=== PATIENT | male | born 1995 | race Caucasian/White ===

== ENCOUNTER 2017-03-05 13:52 | Emergency (ER) | payer BC ==
[~2017-03-05] VITALS: Ht 167.6 cm; Wt 66.2 kg
[2017-03-05 14:03] VITALS: TEMP 36.5; Ht 167.6 cm; Wt 66.2 kg
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
--- NOTE | 2017-03-05 15:15 | DIAGNOSTIC IMAGING REPORT ---
CT FACIAL BONES-MXILLOFAC WITHOUT CT DOSE: 709.81 mGy.cm CLINICAL HISTORY: Facial pain status post trauma COMPARISON STUDY: No previous studies for comparison. TECHNIQUE: Helical images were acquired in the transverse plane. The study was reviewed and analyzed on the independent 3-D workstation. The pterygoid plates appear intact. There is a nondisplaced left-sided zygomatic arch fracture. There is a droplet of left-sided orbital emphysema. There is a nondisplaced fracture of the lateral wall of the left orbit. There are fractures involving the anterior and lateral bolaños of the left maxillary sinus. There is involvement of the anterior aspect of the left orbital floor. There is no muscular entrapment. There is a small left maxillary sinus air-fluid level. The mandibular condyles appear intact. IMPRESSION: 1. Acute nondisplaced fracture of the left zygomatic arch 2. Acute nondisplaced fracture involving the lateral wall of the left orbit 2. Acute mildly displaced fractures involving the anterior and lateral bolaños of the left maxillary sinus. Electronically signed by: Kam Rodriguez M.D. 03/05/2017 3:14 PM Dictated Date/Time: 03/05/2017 3:07 PM
[2017-03-05] MEDS ORDERED: OXYCODONE HCL IR 5 MG TAB (IMMEDIATE RELEASE) PO STA (15:40)
[2017-03-05] MEDS ORDERED: AMOX875T PO (15:46)
[2017-03-05] MEDS ORDERED: OXYC1TAB3 PO (15:46)
[2017-03-05 16:34] VITALS: BP 139/88; PULSE 70; O2SAT 100
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
== END 2017-03-05 16:49 | disposition home or self-care (01) ==
LOC: C.EDB 13:55 → C.EDD 16:49
DX: S02.92XA Unspecified fracture of facial bones, initial encounter for closed fracture (principal); S80.01XA Contusion of right knee, initial encounter; V19.3XXA Pedal cyclist (driver) (passenger) injured in unspecified nontraffic accident, initial encounter; Y93.55 Activity, bike riding; J45.909 Unspecified asthma, uncomplicated; Z98.890 Other specified postprocedural states; Z88.5 Allergy status to narcotic agent; Z88.6 Allergy status to analgesic agent

== ENCOUNTER 2022-11-09 17:07 | Inpatient (IN) ==
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
[2022-11-09 18:27] LABS: Appearance Urine Clear (Clear); Bilirubin Urine Negative (Negative); Blood Urine 3+ (Negative); Color Urine Yellow; Glucose Urine UA Negative (Negative); Ketones Urine Negative (Negative); Leukocyte Esterase Urine Negative (Negative); Nitrite Urine Negative (Negative); Protein Urine Trace (Negative); Specific Gravity Urine 1.006 (1.000-1.030); Urobilinogen Urine Negative (Negative); pH Urine 5.5 (4.5-7.5)
--- NOTE | 2022-11-09 18:31 | Emergency Department Note ---
Impression & Plan Edema of right upper extremity, Substance abuse, Rhabdomyolysis, Transaminitis, ANNIKA (acute kidney injury) ED Provider Note ED Provider Note NAME: LEXI ZARAGOZA AGE:27 SEX: Male : 1995 ARRIVES VIA: Private vehicle INFORMANT: Patient ED PROVIDER(s): Shira Gan DO CHIEF COMPLAINT: Right arm swelling, rash on stomach HPI: This is a 27-year-old male presents emergency department due to concern for right arm swelling and pain as well as a small rash on his stomach. Patient states over spring while on vacation he was using opiates which she has a history of. He states upon flying into the [place] airport he met some people which led to further drug use although this time he states he was using " speed". He states he woke up in an unknown hotel room, feeling confused and fatigued. He states those symptoms slowly improved and he was able to make his way back to [place]. He states he "passed out" at his apartment and when he woke up he realized his arm was swollen and achy and he had a new rash on his stomach. He states that was yesterday morning. He states his symptoms worsened into today and he came in for evaluation. He does not recall any trauma, burn, or injury to the abdomen where he has 2 small areas of redness that he states are painful and hypersensitive. No other new rash or sores. He does have a prior history of an abscess at an IVDA injection site. He denies fevers or chills, chest pain, trouble breathing. PAST MEDICAL HISTORY:See Below PAST SURGICAL HISTORY:See Below FAMILY HISTORY:See Below SOCIAL HISTORY:See Below HOME MEDICATIONS:See Below ALLERGIES:See Below VITALS:See Below PHYSICAL EXAMINATION: GENERAL: alert, well appearing, well nourished, no distress, non-toxic EYE EXAM: normal conjunctiva, PERRL and EOM's grossly intact OROPHARYNX: no exudate, no erythema, lips, buccal mucosa, and tongue normal and mucous membranes are moist NECK: supple, no nuchal rigidity, no adenopathy, non-tender LUNGS: Clear to auscultation. Normal chest wall mechanics, no w/r/r HEART: no murmurs, S1 normal and S2 normal ABDOMEN: abdomen soft, non-tender, normo-active bowel sounds, no masses, no rebound or guarding. 2 areas of erythema approximately 4 x 4 cm to mid anterior abdominal wall, no skin sloughing, no bullae, no petechiae, no drainage BACK: Back is symmetrical on inspection and there is no deformity, no midline tenderness, no CVA tenderness. SKIN: no rashes, petechiae, orbruising UPPER EXTREMITIES: left upper extremity are grossly normal. FROM, nml pulses b/l. Fresh injection sites noted near the AC. Right upper extremity with marked edema from the shoulder extending down to the mid forearm, no bony tenderness with palpation, discomfort noted posterior to the proximal right upper extremity in the area of his triceps, no palpable mass, no crepitus, no overlying erythema or rash, patient has full range of motion of the right upper extremity but states it is painful performing range of motion testing at the right shoulder, he denies distal paresthesias, radial pulse intact, normal sensation of the right hand, there is a well-healed scar noted along the right lateral elbow from prior surgery for an abscess LOWER EXTREMITIES: No pitting edema. FROM, nml pulses b/l. NEURO EXAM: Normal sensorium, cranial nerves II-XII grossly intact, normal speech, no facial droop,nogross weakness of arms, no gross weakness of legs. Gross sensation intact. No ataxia. Vital Signs: reviewed and remarkable Differential Diagnosis: abscess, septic athritis, DVT, dehydration, contusion, electrolyte abnormality as well as others were considered MEDICAL DECISION MAKING: THis is a 27 yo male who presents due to concern for RUE pain and swelling. Patient admits to hx of IVDA and recent use over the weekend with 2 episodes of "passing out" for an unknown about of time. Patient was afebrile and VS stable on arrival. Orders started while in triage. Labs drawn however took several attempts due to difficult IV access from hx of IVDA and IVF started. Right shoulder xrays performed at bedside and interpreted by me and pt placed on tele. Due to concern for infection, zosyn and vancomycin ordered. Cultures, procal, and lactic acid added after labs revealed leukocytosis. Patient started on IVF and sent for US. While in US, additional labs resulted showing ANNIKA and eventually rhabdomyolysis. US negative. I suspect pt "passed out" on his right arm due to drug use leading to rhabdo which led to ANNIKA and likely transaminitis additionally. Patient made aware of all results and need for additional inpatient treatment. I feel occult septic arthritis, or nec fasc less likey at this time. Consultation(s): 1618: Discussed with Dr. Andres. ER Treatment Provided: See below Diagnostics Interpreted By Me: -ECG: [] -Cardiac Monitoring: An order was placed for continuous cardiac monitoring. The monitor shows a rate of 86 with normal sinus rhythm. -Laboratory studies: As stated above and show below. -Imaging studies: right shoulder xray 3 views: no obvious fx, dislocation, or FB Triage Nursing Note Reviewed Prior/Outside Records Reviewed Procedures: [] Critical Care: [] Past Med/Surg History Social History Smoking Status: Current some day smoker Tobacco Type: E-cigarettes / Vaping Second Hand Exposure: No; Do You Dip or Chew Tobacco: No; Hx Alcohol Use: Yes Alcohol type: beer and hard liquor Hx Substance Use: Yes Last Used Substance: Days (ago) Last Used Substance Other:: 11/07/22 Communication Ability: Effective Current Living Situation: Alone Other Information That Helps Us Care for You: No Feels Safe at Home: Yes Assistive Devices: None Allergies Allergies Allergy/AdvReac Type Severity Reaction Status Date / Time hydrocodone Allergy Intermediate rash Verified 11/09/22 20:04 acetaminophen Allergy Unknown PER Verified 11/09/22 20:04 PT--DOESN'T TAKE D/T SIDE EFFECT LIVER CAUSING ISSUE oxycodone Allergy Unknown heat Verified 11/09/22 20:04 flashes Home Meds Home Medications Medication Instructions Recorded Confirmed Medical Marijuana 1 dose inhalation DIRECTED PRN 11/09/22 11/09/22 NEEDED PER PT. alprazolam 0.25 mg tablet 0.25 mg PO HS PRN Sleep 11/09/22 11/09/22 clonazepam 1 mg tablet 1 mg PO BID PRN Anxiety 11/09/22 11/09/22 dextroamphetamine-amphetamine 20 20 mg PO TID 11/09/22 11/09/22 mg tablet Results & Data (ED) Vital Signs Vital Signs - 24 hr 11/09/22 17:13 11/09/22 19:22 11/09/22 22:00 Temperature 36.8 C Temperature Source Temporal Artery Scan Pulse Rate 96 H 86 83 Pulse Rate from SpO2 Sensor 77 Pulse Rhythm Regular Respiratory Rate 16 14 20 Respiratory Effort / Characteristics Non-Labored Spontaneous Respiratory Depth Normal Blood Pressure 141/93 H 159/108 H 150/92 H Blood Pressure Mean 109 125 111 Pulse Oximetry 100 100 100 Oxygen Delivery Method Room Air Room Air Room Air Sepsis Recent Fever Within 48 Hours No Sepsis New/Unexplained Change in Mental Status No Sepsis Action Taken by Nursing No Action Required Laboratory Data 11/09/22 18:32 11/09/22 18:32 Lab Results 11/09/22 11/09/22 11/09/22 Range/Units 18:10 18:10 18:32 WBC 15.24 H (4.8-10.8) K/ul RBC 5.77 (4.70-6.10) M/uL Hgb 17.5 (14.0-18.0) g/dl Hct 49.4 (42.0-52.0) % MCV 85.6 (80.0-100.0) fL MCH 30.3 (25.0-34.0) pg MCHC 35.4 (32.0-36.0) g/dL RDW Std Deviation 38.5 (36.4-46.3) fL RDW Coeff of Raúl 12.4 (11.5-14.5) % Plt Count 192 (130-400) K/uL MPV 10.3 (9.4-12.4) fL Immature Gran % (Auto) 0.5 % Neut % (Auto) 86.2 % Lymph % (Auto) 7.5 % [place] % (Auto) 4.9 % Eos % (Auto) 0.6 % Baso % (Auto) 0.3 % Neut # (Auto) 13.15 H (1.40-6.50) K/uL Lymph # (Auto) 1.15 L (1.2-3.4) K/uL [place] # (Auto) 0.74 H (0.11-0.59) K/uL Eos # (Auto) 0.09 (0-0.50) K/uL Baso # (Auto) 0.04 (0-0.2) K/uL Immature Gran # (Auto) 0.07 (0.01-0.20) K/uL Sodium (136-145) mmol/L Potassium (3.5-5.1) mmol/L Chloride (98-107) mmol/L Carbon Dioxide (21-32) mmol/L Anion Gap (3-11) BUN (6-23) mg/dl Creatinine (0.6-1.4) mg/dl Est Cr Clr Drug Dosing Est GFR ( Amer) ml/min Est GFR (Non-Af Amer) ml/min BUN/Creatinine Ratio (10-20) Glucose (70-99(Fasting)) mg/dl Lactate (0.4-2.0) mmol/L Calcium (8.5-10.1) mg/dl Magnesium (1.7-2.4) mg/dl Total Bilirubin (0.2-1.0) mg/dl AST (13-39) U/L ALT (7-52) U/L Alkaline Phosphatase (34-104) U/L Total Creatine Kinase (30-223) U/L Total Protein (6.0-8.3) gm/dl Albumin (3.4-5.0) gm/dl Globulin (2.5-4.0) gm/dl Albumin/Globulin Ratio (0.9-2) Procalcitonin (0-0.5) ng/ml Urine Color Yellow Urine Appearance Clear (Clear) Urine pH 5.5 (4.5-7.5) Ur Specific [place] 1.006 (1.000-1.030) Urine Protein Trace H (Negative) Urine Glucose (UA) Negative (Negative) Urine Ketones Negative (Negative) Urine Blood 3+ H (Negative) Urine Nitrite Negative (Negative) Urine Bilirubin Negative (Negative) Urine Urobilinogen Negative (Negative) Ur Leukocyte Esterase Negative (Negative) Urine WBC (Auto) 5-10 H (0-5) /hpf Urine RBC (Auto) 0-4 (0-4) /hpf U Hyaline Cast (Auto) 1-5 (0-5) /lpf U Epithel Cells (Auto) 5-10 H (0-5) /lpf Urine Bacteria (Auto) 1+ H (Negative) Urine Yeast Not Reportable Urine Opiates Screen Neg (Neg) Ur Methadone, Qual Neg (Neg) Urine Barbiturates Neg (Neg) Ur Phencyclidine (PCP) Neg (Neg) U Amphetamin/Meth Scrn Pos H (Neg) MDMA (Ecstasy) Screen Neg (Neg) U Benzodiazepines Scrn Neg (Neg) Ur Cocaine Metabolite Neg (Neg) U Marijuana (THC) Screen Pos H (Neg) SARS-CoV-2 (PCR) (Negative) Influenza Type A (PCR) (Neg) Influenza Type B (PCR) (Neg) RSV (RT-PCR) (Neg) 11/09/22 11/09/22 11/09/22 Range/Units 18:32 18:32 18:32 WBC (4.8-10.8) K/ul RBC (4.70-6.10) M/uL Hgb (14.0-18.0) g/dl Hct (42.0-52.0) % MCV (80.0-100.0) fL MCH (25.0-34.0) pg MCHC (32.0-36.0) g/dL RDW Std Deviation (36.4-46.3) fL RDW Coeff of Raúl (11.5-14.5) % Plt Count (130-400) K/uL MPV (9.4-12.4) fL Immature Gran % (Auto) % Neut % (Auto) % Lymph % (Auto) % [place] % (Auto) % Eos % (Auto) % Baso % (Auto) % Neut # (Auto) (1.40-6.50) K/uL Lymph # (Auto) (1.2-3.4) K/uL [place] # (Auto) (0.11-0.59) K/uL Eos # (Auto) (0-0.50) K/uL Baso # (Auto) (0-0.2) K/uL Immature Gran # (Auto) (0.01-0.20) K/uL Sodium 128 L (136-145) mmol/L Potassium 3.6 (3.5-5.1) mmol/L Chloride 93 L (98-107) mmol/L Carbon Dioxide 26 (21-32) mmol/L Anion Gap 9 (3-11) BUN 51 H (6-23) mg/dl Creatinine 3.28 H (0.6-1.4) mg/dl Est Cr Clr Drug Dosing Not Reportable Est GFR ( Amer) 28.3 ml/min Est GFR (Non-Af Amer) 24.4 ml/min BUN/Creatinine Ratio 15.5 (10-20) Glucose 100 H (70-99(Fasting)) mg/dl Lactate 1.2 (0.4-2.0) mmol/L Calcium 8.5 (8.5-10.1) mg/dl Magnesium 2.5 H (1.7-2.4) mg/dl Total Bilirubin 1.1 H (0.2-1.0) mg/dl AST 2043 H (13-39) U/L ALT 1268 H (7-52) U/L Alkaline Phosphatase 61 (34-104) U/L Total Creatine Kinase 73463 H (30-223) U/L Total Protein 7.5 (6.0-8.3) gm/dl Albumin 4.3 (3.4-5.0) gm/dl Globulin 3.2 (2.5-4.0) gm/dl Albumin/Globulin Ratio 1.3 (0.9-2) Procalcitonin 4.09 H (0-0.5) ng/ml Urine Color Urine Appearance (Clear) Urine pH (4.5-7.5) Ur Specific [place] (1.000-1.030) Urine Protein (Negative) Urine Glucose (UA) (Negative) Urine Ketones (Negative) Urine Blood (Negative) Urine Nitrite (Negative) Urine Bilirubin (Negative) Urine Urobilinogen (Negative) Ur Leukocyte Esterase (Negative) Urine WBC (Auto) (0-5) /hpf Urine RBC (Auto) (0-4) /hpf U Hyaline Cast (Auto) (0-5) /lpf U Epithel Cells (Auto) (0-5) /lpf Urine Bacteria (Auto) (Negative) Urine Yeast Urine Opiates Screen (Neg) Ur Methadone, Qual (Neg) Urine Barbiturates (Neg) Ur Phencyclidine (PCP) (Neg) U Amphetamin/Meth Scrn (Neg) MDMA (Ecstasy) Screen (Neg) U Benzodiazepines Scrn (Neg) Ur Cocaine Metabolite (Neg) U Marijuana (THC) Screen (Neg) SARS-CoV-2 (PCR) (Negative) Influenza Type A (PCR) (Neg) Influenza Type B (PCR) (Neg) RSV (RT-PCR) (Neg) 11/09/22 Range/Units 21:45 WBC (4.8-10.8) K/ul RBC (4.70-6.10) M/uL Hgb (14.0-18.0) g/dl Hct (42.0-52.0) % MCV (80.0-100.0) fL MCH (25.0-34.0) pg MCHC (32.0-36.0) g/dL RDW Std Deviation (36.4-46.3) fL RDW Coeff of Raúl (11.5-14.5) % Plt Count (130-400) K/uL MPV (9.4-12.4) fL Immature Gran % (Auto) % Neut % (Auto) % Lymph % (Auto) % [place] % (Auto) % Eos % (Auto) % Baso % (Auto) % Neut # (Auto) (1.40-6.50) K/uL Lymph # (Auto) (1.2-3.4) K/uL [place] # (Auto) (0.11-0.59) K/uL Eos # (Auto) (0-0.50) K/uL Baso # (Auto) (0-0.2) K/uL Immature Gran # (Auto) (0.01-0.20) K/uL Sodium (136-145) mmol/L Potassium (3.5-5.1) mmol/L Chloride (98-107) mmol/L Carbon Dioxide (21-32) mmol/L Anion Gap (3-11) BUN (6-23) mg/dl Creatinine (0.6-1.4) mg/dl Est Cr Clr Drug Dosing Est GFR ( Amer) ml/min Est GFR (Non-Af Amer) ml/min BUN/Creatinine Ratio (10-20) Glucose (70-99(Fasting)) mg/dl Lactate (0.4-2.0) mmol/L Calcium (8.5-10.1) mg/dl Magnesium (1.7-2.4) mg/dl Total Bilirubin (0.2-1.0) mg/dl AST (13-39) U/L ALT (7-52) U/L Alkaline Phosphatase (34-104) U/L Total Creatine Kinase (30-223) U/L Total Protein (6.0-8.3) gm/dl Albumin (3.4-5.0) gm/dl Globulin (2.5-4.0) gm/dl Albumin/Globulin Ratio (0.9-2) Procalcitonin (0-0.5) ng/ml Urine Color Urine Appearance (Clear) Urine pH (4.5-7.5) Ur Specific [place] (1.000-1.030) Urine Protein (Negative) Urine Glucose (UA) (Negative) Urine Ketones (Negative) Urine Blood (Negative) Urine Nitrite (Negative) Urine Bilirubin (Negative) Urine Urobilinogen (Negative) Ur Leukocyte Esterase (Negative) Urine WBC (Auto) (0-5) /hpf Urine RBC (Auto) (0-4) /hpf U Hyaline Cast (Auto) (0-5) /lpf U Epithel Cells (Auto) (0-5) /lpf Urine Bacteria (Auto) (Negative) Urine Yeast Urine Opiates Screen (Neg) Ur Methadone, Qual (Neg) Urine Barbiturates (Neg) Ur Phencyclidine (PCP) (Neg) U Amphetamin/Meth Scrn (Neg) MDMA (Ecstasy) Screen (Neg) U Benzodiazepines Scrn (Neg) Ur Cocaine Metabolite (Neg) U Marijuana (THC) Screen (Neg) SARS-CoV-2 (PCR) NEGATIVE (Negative) Influenza Type A (PCR) Negative (Neg) Influenza Type B (PCR) Negative (Neg) RSV (RT-PCR) Negative (Neg) Administered Medications Daptomycin 250 mg/ Syringe 5 mls @ 2.5 mls/min IV Q24H [facility]; Protocol Stop: 11/17/22 04:59 Last Admin: 11/10/22 05:45 Dose: 2.5 mls/min Documented By: ELIZABETH Piperacillin Sod/Tazobactam (Sod 3.375 gm/ Dextrose) 115 mls @ 28.75 mls/hr IV Q8H [facility]; Protocol Stop: 11/17/22 05:59 Last Admin: 11/10/22 13:57 Dose: 28.8 mls/hr Documented By: Infusion: 11/10/22 09:47 Dose: 0 mls/hr Documented By: Admin: 11/10/22 05:45 Dose: 28.8 mls/hr Documented By: ELIZABETH Parenteral Electrolytes (Normosol-R) 1,000 mls @ 200 mls/hr IV .Q5H [facility] Stop: 12/10/22 10:29 Last Infusion: 11/10/22 12:04 Dose: 200 mls/hr Documented By: Infusion: 11/10/22 11:16 Dose: 0 mls/hr Documented By: Admin: 11/10/22 10:37 Dose: 200 mls/hr Documented By: THEODORE Morphine Sulfate (Morphine Sulfate 2 Mg/Ml Carp) 1 mg IV Q4 PRN PRN Reason: Severe Pain (Scale 7, 8, 9,10) Stop: 11/24/22 13:39 Last Admin: 11/10/22 14:09 Dose: 1 mg Documented By: THEODORE Nicotine (Nicotine 21 Mg/24 Hr Tdsy) 21 mg TD QAM [facility] Stop: 12/10/22 13:44 Last Admin: 11/10/22 13:57 Dose: 21 mg Documented By: THEODORE Triamcinolone Acetonide (Triamcinolone Acet 0.1% Orabase 5 Gm Tube) 1 appln MT UD [facility] Stop: 12/09/22 22:44 Last Admin: 11/10/22 10:13 Dose: 1 appln Documented By: THEODORE Discontinued Medications Piperacillin Sod/Tazobactam Sod (Zosyn) 4.5 gm in 120 mls @ 240 mls/hr IV NOW ONE Stop: 11/09/22 19:42 Last Infusion: 11/09/22 20:38 Dose: 0 mls/hr Documented By: Admin: 11/09/22 20:08 Dose: 240 mls/hr Documented By: SHELLEY Sodium Chloride (Nss 1000ml) 1,000 mls @ 125 mls/hr IV .Q8H [facility] Stop: 12/09/22 19:44 Last Infusion: 11/10/22 01:33 Dose: 0 mls/hr Documented By: Admin: 11/09/22 22:17 Dose: 125 mls/hr Documented By: SHELLEY Vancomycin HCl 1,250 mg/ (Sodium Chloride) 525 mls @ 200 mls/hr IV NOW ONE Stop: 11/09/22 22:11 Last Admin: 11/09/22 20:48 Dose: 200 mls/hr Documented By: SHELLEY Sodium Chloride (Nss 1000ml) 1,000 mls @ 200 mls/hr IV .Q5H [facility] Stop: 12/10/22 01:28 Last Infusion: 11/10/22 10:32 Dose: 0 mls/hr Documented By: Admin: 11/10/22 05:56 Dose: 200 mls/hr Documented By: Infusion: 11/10/22 05:56 Dose: 0 mls/hr Documented By: Admin: 11/10/22 01:34 Dose: 200 mls/hr Documented By: ELIZABETH Potassium Chloride (Potassium Chloride Crtab 20 Meq Tabcr) 40 meq PO NOW STA Stop: 11/10/22 13:08 Last Admin: 11/10/22 13:57 Dose: 40 meq Documented By: THEODORE Imaging Data Radiologist's Impression: Shoulder X-Ray 11/09/22 17:20 XR shoulder RT min 2V routine CLINICAL HISTORY: Right shoulder pain. COMPARISON STUDY: None. FINDINGS: Soft tissue swelling within the right shoulder. No acute fracture or dislocation. The right clavicle is intact. IMPRESSION: Soft tissue swelling within the right shoulder. No fracture or dislocation. ACT 112: Negative or not required by law. Electronically signed by: Richard Duvall M.D. 11/09/2022 6:29 PM Discharge Plan Visit Data Chief Complaint: Swelling/Edema to Extremity Stated Complaint: REF BY DOC,R ARM SWELLING ,ABDOMINAL PAIN ED Provider: Shira Gan Discharge Problem: Edema of right upper extremity, Substance abuse, Rhabdomyolysis, Transaminitis, ANNIKA (acute kidney injury) Patient Disposition: Admitted As Inpatient Discharge Instructions Interventions: ED Discharge Assessment Last Done: 11/10/22 01:11
[2022-11-09 18:45] LABS: Bacteria Urine Automated 1+ (Negative); RBC Urine Automated 0-4 /hpf (0-4)
[2022-11-09 19:00] LABS: Basophils # (auto) 0.04 K/uL (0-0.2); Basophils % (auto) 0.3 %; Eosinophils # (auto) 0.09 K/uL (0-0.50); Eosinophils % (auto) 0.6 %; Hematocrit (blood only) 49.4 % (42.0-52.0); Hemoglobin 17.5 g/dl (14.0-18.0); Immature Granulocytes # (auto) 0.07 K/uL (0.01-0.20); Immature Granulocytes % (auto) 0.5 %; Lymphocytes # (auto) 1.15 K/uL (1.2-3.4); Lymphocytes % (auto) 7.5 %; Mean Corpuscular Hemoglobin 30.3 pg (25.0-34.0); Mean Corpuscular Hgb Conc 35.4 g/dL (32.0-36.0); Mean Corpuscular Volume 85.6 fL (80.0-100.0); Mean Platelet Volume 10.3 fL (9.4-12.4); Monocytes # (auto) 0.74 K/uL (0.11-0.59); Monocytes % (auto) 4.9 %; Neutrophils # (auto) 13.15 K/uL (1.40-6.50); Neutrophils % (auto) 86.2 %; Platelet Count 192 K/uL (130-400); RDW Coefficient of Variation 12.4 % (11.5-14.5); RDW Standard Deviation 38.5 fL (36.4-46.3); Red Blood Count 5.77 M/uL (4.70-6.10); White Blood Count 15.24 K/ul (4.8-10.8)
[2022-11-09 19:03] LABS: Amphetamines+Metham, Urine Pos (Neg); Barbiturates, Urine Neg (Neg); Benzodiazepine, Urine Neg (Neg); Cocaine, Urine Neg (Neg); MDMA (Ecstacy), Urine Neg (Neg); Methadone, Urine Neg (Neg); Opiate, Urine Neg (Neg); Phencyclidine, Urine Neg (Neg)
[2022-11-09] MEDS ORDERED: PIPERACILLIN/TAZOBACTAM 4.5 GM/120 ML BAG IV ONE (19:13)
[2022-11-09 19:18] LABS: Anion Gap 9 (3-11); BUN Creatinine Ratio 15.5 (10-20); Blood Urea Nitrogen 51 mg/dl (6-23); Calcium 8.5 mg/dl (8.5-10.1); Carbon Dioxide 26 mmol/L (21-32); Chloride 93 mmol/L (98-107); Est GFR (African American) 28.3 ml/min; Est GFR (Non-African American) 24.4 ml/min; Glucose 100 mg/dl (70-99(Fasting)); Potassium 3.6 mmol/L (3.5-5.1); Sodium 128 mmol/L (136-145)
[2022-11-09] MEDS ORDERED: VANCOMYCIN CONSULT ACTIVE PRN (19:34)
[2022-11-09] MEDS ORDERED: VANCOMYCIN HCL 1,250 MG in SODIUM CHLORIDE 0.9% 500 ML IV ONE (19:34)
[2022-11-09] MEDS ORDERED: SODIUM CHLORIDE 0.9% 1000ML 1,000 ML IV SCH (19:45)
[2022-11-09 20:01] LABS: Alanine Aminotransferase 1268 U/L (7-52); Albumin Globulin Ratio 1.3 (0.9-2); Albumin Level 4.3 gm/dl (3.4-5.0); Alkaline Phosphatase 61 U/L (34-104); Aspartate Aminotransferase 2043 U/L (13-39); Bilirubin,Total 1.1 mg/dl (0.2-1.0); Globulin 3.2 gm/dl (2.5-4.0); Magnesium 2.5 mg/dl (1.7-2.4); Total Protein 7.5 gm/dl (6.0-8.3)
[2022-11-09 21:08] LABS: Creatine Kinase 79100 U/L (30-223)
--- NOTE | 2022-11-09 21:51 | Ultrasound Report ---
Exam(s): US VENOUS RIGHT UPPER EXTREMITY EXAM: US Duplex Right Upper Extremity Veins CLINICAL HISTORY: Reason for exam: R arm pain and edema. TECHNIQUE: Real-time duplex ultrasound scan of the right upper extremity veins integrating B-mode two-dimensional vascular structure, Doppler spectral analysis, color flow Doppler imaging and compression. COMPARISON: None FINDINGS: Deep veins: Unremarkable. No DVT in the internal jugular, subclavian, axillary, or brachial veins. The veins demonstrate normal color flow, are normally compressible, with normal phasic flow and/or augmentation response. Superficial veins: Unremarkable. No thrombus in the visualized basilic and cephalic veins. Soft tissues: Edema in the subcutaneous soft tissues. There also appears to be muscular edema in the shoulder. IMPRESSION: No venous thrombosis in the right upper extremity. Soft tissue and muscular edema. Electronically signed by: Lilliam Arellano M.D. 11/09/22 21:50 PM
[2022-11-09] MEDS ORDERED: TRIAMCINOLONE ACET 0.1% ORABASE 5 GM TUBE MT SCH (22:45)
--- NOTE | 2022-11-09 22:49 | History & Physical Report ---
Date of Service November 09, 2022 Assessment & Plan (1) Substance abuse: (2) Rhabdomyolysis: (3) Acute renal failure: (4) Transaminitis: (5) Edema of right upper extremity: Plan Acute renal failure/rhabdomyolysis- Creatinine 3.28, CK 79,100 NSS at 200 mils per hour Follow serial renal profile and CK Hold off on any imaging at this time Consult nephrology Right upper extremity swelling- Venous Doppler negative for DVT X-ray shows no bony abnormality but does show fluid in the soft tissue Injection mendiola noted near the AC Procalcitonin elevated Placed on daptomycin IV and Zosyn IV If persistent symptoms consult orthopedic surgery Transaminitis- Secondary to rhabdomyolysis AST 2043, ALT 1268 INR added on is 1.1 Follow serial laboratories Oral ulcers- Along tongue and lips and buccal mucosa Placed on Kenalog Orabase Hold alprazolam, clonazepam, dextroamphetamine/amphetamine, and medical marijuana Urine drug screen is positive for amphetamine and marijuana Unknown what other substances patient may have used, as he has amnesia for part of the time He was advised to stop the substance abuse History of Present Illness Chief Complaint: The patient presents to the emergency department for assessment of right arm and shoulder swelling, and reports that over the past 2 days he feels like he has been hit by a train, with every part of his body being sore and aching Primary Care Provider: NO PCP The patient is a 27-year-old male with past medical history significant for anxiety, ADD, and a skin abscess from from a previous IVDA injection site. He presents to the emergency department with complaint of right shoulder and upper arm swelling, and generalized myalgias as noted above. He also reports that [place] on spring he was using opiates, and then later was using speed. While in [place], he reports that he woke up in an unknown hotel room feeling confused and extremely fatigued and achy. He was ultimately able to make his way back to [place] yesterday. After realizing that his right arm was swollen, and he had a new rash on his stomach, he decided coming to the emergency department for assessment. Allergies Allergy/AdvReac Type Severity Reaction Status Date / Time hydrocodone Allergy Intermediate rash Verified 11/09/22 20:04 acetaminophen Allergy Unknown PER Verified 11/09/22 20:04 PT--DOESN'T TAKE D/T SIDE EFFECT LIVER CAUSING ISSUE oxycodone Allergy Unknown heat Verified 11/09/22 20:04 flashes Home Medications Medication Instructions Recorded Confirmed Type Medical Marijuana 1 dose inhalation DIRECTED PRN 11/09/22 11/09/22 History NEEDED PER PT. alprazolam 0.25 mg tablet 0.25 mg PO HS PRN Sleep 11/09/22 11/09/22 History clonazepam 1 mg tablet 1 mg PO BID PRN Anxiety 11/09/22 11/09/22 History dextroamphetamine-amphetamine 20 20 mg PO TID 11/09/22 11/09/22 History mg tablet Past Med/Surg History Social History (Updated 11/09/22 @ 18:30 by Shira Gan, ) Smoking Status: Current some day smoker Tobacco Type: E-cigarettes / Vaping Second Hand Exposure: No; Do You Dip or Chew Tobacco: No; Hx Alcohol Use: Yes Alcohol type: beer and hard liquor Hx Substance Use: Yes Last Used Substance: Days (ago) Last Used Substance Other:: 11/07/22 Current Living Situation: Alone Other Information That Helps Us Care for You: No Feels Safe at Home: Yes Review of Systems Review of Systems: The patient denies chest pain, palpitations, shortness of breath, dyspnea on exertion, cough, lower extremity swelling, sore throat, fevers, chills, sweats, nausea, vomiting, diarrhea , constipation, abdominal pain, pelvic pain, blood in urine or stool, dysuria, urinary frequency or urgency, lightheadedness, dizziness, headache, abnormal bruising or bleeding, imbalance, focal weakness, back or neck pain, or night sweats. The review of systems is otherwise negative other than for that already noted above, and at least 10 systems have been reviewed. Physical Exam Physical Exam: The patient is awake, alert and oriented 3, well developed and well nourished, normocephalic and atraumatic, lying in bed and in no acute distress. HEENT--PERRL, EOMI, multiple areas of ulcerations along right side of tongue, and along lips and buccal mucosa Neck--supple. No JVD. No bruits. Thyroid normal, trachea midline, no adenopathy. Heart--normal S1 and S2. No murmurs, rubs or gallops. Lungs--clear bilaterally, no respiratory distress, no accessory muscle use. Abdomen--normal bowel sounds and soft. Nontender. Nondistended, no hernias or masses, no organomegaly. Extremities--no cyanosis or clubbing. No edema. There are good distal pulses b/l. Dermatologic--fresh injection site is noted near the right AC Neurologic--cranial nerves II through XII grossly intact. Rheumatologic--painfully decreased range of motion with swelling noted from right shoulder down to mid forearm Psychiatric--normal affect. Results & Data Results & Data ([facility]) Vital Signs (Past 12 Hours) Vital Signs Temp Pulse Resp BP Pulse Ox O2 Del Method 11/09/22 22:00 83 20 150/92 H 100 Room Air 11/09/22 19:22 86 14 159/108 H 100 Room Air 11/09/22 17:13 36.8 C 96 H 16 141/93 H 100 Room Air Laboratory Results Laboratory Results WBC 15.24 K/ul (4.8-10.8) H 11/09/22 18: RBC 5.77 M/uL (4.70-6.10) 11/09/22 18: Hgb 17.5 g/dl (14.0-18.0) 11/09/22 18: Hct 49.4 % (42.0-52.0) 11/09/22 18: MCV 85.6 fL (80.0-100.0) 11/09/22 18: MCH 30.3 pg (25.0-34.0) 11/09/22 18: MCHC 35.4 g/dL (32.0-36.0) 11/09/22 18: RDW Std Deviation 38.5 fL (36.4-46.3) 11/09/22 18: RDW Coeff of Raúl 12.4 % (11.5-14.5) 11/09/22 18: Plt Count 192 K/uL (130-400) 11/09/22 18: MPV 10.3 fL (9.4-12.4) 11/09/22 18: Immature Gran % (Auto) 0.5 % 11/09/22 18: Neut % (Auto) 86.2 % 11/09/22 18: Lymph % (Auto) 7.5 % 11/09/22 18:32 [place] % (Auto) 4.9 % 11/09/22 18:32 Eos % (Auto) 0.6 % 11/09/22 18:32 Baso % (Auto) 0.3 % 11/09/22 18:32 Neut # (Auto) 13.15 K/uL (1.40-6.50) H 11/09/22 18:32 Lymph # (Auto) 1.15 K/uL (1.2-3.4) L 11/09/22 18:32 [place] # (Auto) 0.74 K/uL (0.11-0.59) H 11/09/22 18:32 Eos # (Auto) 0.09 K/uL (0-0.50) 11/09/22 18:32 Baso # (Auto) 0.04 K/uL (0-0.2) 11/09/22 18:32 Immature Gran # (Auto) 0.07 K/uL (0.01-0.20) 11/09/22 18:32 PT 11.5 Seconds (9.0-12.0) 11/10/22 00:52 INR 1.1 (0.9-1.1) 11/10/22 00:52 APTT 21.4 Seconds (21.0-31.0) 11/10/22 00:52 PTT Ratio 0.8 11/10/22 00:52 Sodium 128 mmol/L (136-145) L 11/09/22 18:32 Potassium 3.6 mmol/L (3.5-5.1) 11/09/22 18:32 Chloride 93 mmol/L (98-107) L 11/09/22 18:32 Carbon Dioxide 26 mmol/L (21-32) 11/09/22 18:32 Anion Gap 9 (3-11) 11/09/22 18:32 BUN 51 mg/dl (6-23) H 11/09/22 18:32 Creatinine 3.28 mg/dl (0.6-1.4) H 11/09/22 18:32 Est Cr Clr Drug Dosing Not Reportable 11/09/22 18:32 Est GFR ( Amer) 28.3 ml/min 11/09/22 18:32 Est GFR (Non-Af Amer) 24.4 ml/min 11/09/22 18:32 BUN/Creatinine Ratio 15.5 (10-20) 11/09/22 18:32 Glucose 100 mg/dl (70-99(Fasting)) H 11/09/22 18:32 Lactate 1.2 mmol/L (0.4-2.0) 11/09/22 18:32 Calcium 8.5 mg/dl (8.5-10.1) 11/09/22 18:32 Magnesium 2.5 mg/dl (1.7-2.4) H 11/09/22 18:32 Total Bilirubin 1.1 mg/dl (0.2-1.0) H 11/09/22 18:32 AST 2043 U/L (13-39) H 11/09/22 18:32 ALT 1268 U/L (7-52) H 11/09/22 18:32 Alkaline Phosphatase 61 U/L (34-104) 11/09/22 18:32 Total Creatine Kinase 86452 U/L (30-223) H 11/09/22 18:32 Total Protein 7.5 gm/dl (6.0-8.3) 11/09/22 18:32 Albumin 4.3 gm/dl (3.4-5.0) 11/09/22 18: Globulin 3.2 gm/dl (2.5-4.0) 11/09/22 18:32 Albumin/Globulin Ratio 1.3 (0.9-2) 11/09/22 18:32 Procalcitonin 4.09 ng/ml (0-0.5) H 11/09/22 18:32 Urine Color Yellow 11/09/22 18:10 Urine Appearance Clear (Clear) 11/09/22 18:10 Urine pH 5.5 (4.5-7.5) 11/09/22 18:10 Ur Specific [place] 1.006 (1.000-1.030) 11/09/22 18:10 Urine Protein Trace (Negative) H 11/09/22 18:10 Urine Glucose (UA) Negative (Negative) 11/09/22 18:10 Urine Ketones Negative (Negative) 11/09/22 18:10 Urine Blood 3+ (Negative) H 11/09/22 18:10 Urine Nitrite Negative (Negative) 11/09/22 18:10 Urine Bilirubin Negative (Negative) 11/09/22 18:10 Urine Urobilinogen Negative (Negative) 11/09/22 18:10 Ur Leukocyte Esterase Negative (Negative) 11/09/22 18:10 Urine WBC (Auto) 5-10 /hpf (0-5) H 11/09/22 18:10 Urine RBC (Auto) 0-4 /hpf (0-4) 11/09/22 18:10 U Hyaline Cast (Auto) 1-5 /lpf (0-5) 11/09/22 18:10 U Epithel Cells (Auto) 5-10 /lpf (0-5) H 11/09/22 18:10 Urine Bacteria (Auto) 1+ (Negative) H 11/09/22 18:10 Urine Yeast Not Reportable 11/09/22 18:10 Urine Opiates Screen Neg (Neg) 11/09/22 18:10 Ur Methadone, Qual Neg (Neg) 11/09/22 18:10 Urine Barbiturates Neg (Neg) 11/09/22 18:10 Ur Phencyclidine (PCP) Neg (Neg) 11/09/22 18:10 U Amphetamin/Meth Scrn Pos (Neg) H 11/09/22 18:10 MDMA (Ecstasy) Screen Neg (Neg) 11/09/22 18:10 U Benzodiazepines Scrn Neg (Neg) 11/09/22 18:10 Ur Cocaine Metabolite Neg (Neg) 11/09/22 18:10 U Marijuana (THC) Screen Pos (Neg) H 11/09/22 18:10 SARS-CoV-2 (PCR) NEGATIVE (Negative) 11/09/22 21:45 Influenza Type A (PCR) Negative (Neg) 11/09/22 21:45 Influenza Type B (PCR) Negative (Neg) 11/09/22 21:45 RSV (RT-PCR) Negative (Neg) 11/09/22 21:45 Impressions Shoulder X-Ray 11/09/22 17:20 XR shoulder RT min 2V routine CLINICAL HISTORY: Right shoulder pain. COMPARISON STUDY: None. FINDINGS: Soft tissue swelling within the right shoulder. No acute fracture or dislocation. The right clavicle is intact. IMPRESSION: Soft tissue swelling within the right shoulder. No fracture or dislocation. ACT 112: Negative or not required by law. Electronically signed by: Richard Duvall M.D. 11/09/2022 6:29 PM Venous Doppler Study 11/09/22 17:20 Exam(s): US VENOUS RIGHT UPPER EXTREMITY EXAM: US Duplex Right Upper Extremity Veins CLINICAL HISTORY: Reason for exam: R arm pain and edema. TECHNIQUE: Real-time duplex ultrasound scan of the right upper extremity veins integrating B-mode two-dimensional vascular structure, Doppler spectral analysis, color flow Doppler imaging and compression. COMPARISON: None FINDINGS: Deep veins: Unremarkable. No DVT in the internal jugular, subclavian, axillary, or brachial veins. The veins demonstrate normal color flow, are normally compressible, with normal phasic flow and/or augmentation response. Superficial veins: Unremarkable. No thrombus in the visualized basilic and cephalic veins. Soft tissues: Edema in the subcutaneous soft tissues. There also appears to be muscular edema in the shoulder. IMPRESSION: No venous thrombosis in the right upper extremity. Soft tissue and muscular edema. Electronically signed by: Lilliam Arellano M.D. 11/09/22 21:50 PM Code Status & VTE Plan Code Status Full code VTE Prophylaxis Plan VTE Prophylaxis will be ordered: Yes PG Care Time/CCT Total # of Minutes Spent Total Time Spent with Patient: Total time spent is greater than 50% in coordination of care (as documented) at patient's floor/unit and/or counseling patient: Coding Level of Care Code 95145 INT INP/OBS CARE 3/75MIN Diagnoses Substance abuse F19.10 Rhabdomyolysis M62.82 Acute renal failure N17.9 Transaminitis R74.01 Edema of right upper extremity R60.0
[2022-11-09 23:32] LABS: Influenza A virus by PCR Negative (Neg); Influenza B virus by PCR Negative (Neg); RSV by PCR Negative (Neg); SARS CoV2 RNA(COVID-19) Ceph NEGATIVE (Negative)
[2022-11-10] MEDS ORDERED: ONDANSETRON INJ 2 MG/ML 2 ML VIAL IV PRN (01:29)
[2022-11-10] MEDS: SODIUM CHLORIDE 0.9% 1000ML 1,000 ML IV SCH ×2 (01:34→05:56)
[2022-11-10 02:06] LABS: INR 1.1 (0.9-1.1); Partial Thromboplastin Ratio 0.8; Partial Thromboplastin Time 21.4 Seconds (21.0-31.0); Prothrombin Time 11.5 Seconds (9.0-12.0)
[2022-11-10] MEDS: DAPTOmycin 250 MG in SYRINGE 0 ML IV SCH (05:45)
[2022-11-10] MEDS: PIPERACILLIN/TAZOBACTAM 3.375 GM in DEXTROSE 5% 100 ML IV SCH ×3 (05:45→21:02)
--- NOTE | 2022-11-10 10:22 | Nephrology Consultation ---
Date of Consultation November 10, 2022 Assessment & Plan (1) Acute renal failure: Non-oliguric. Repeat labs pending. Volume status appears acceptable. Rhabdomyolysis. Urine studies do not support underlying GN; clinical presentation atypical. Close monitoring to be provided. No anemia, thrombocytopenia or evidence of TMA. Clinical presentation consistent with prerenal, ATN, and rhabdomyolysis. IVF appropriately being provided. Electrolytes acceptable. No emergent indication for MEDICINE ASSISTANT. NSS switched to normoso l. Repeat metabolic profile requested. Renal US ordered. Document I/O's. (2) Rhabdomyolysis: Monitor CK. Cautious use of dapto. Serial exams of UE. (3) Edema of right upper extremity: Defer imaging of UE to hospitalist. Remains on dapto and Zosyn. Cultures pending. (4) Substance abuse: Serologic testing for hepatitis B, C and HIV pending. (5) Transaminitis: History of Present Illness Reason for Consultation: ANNIKA Requesting Physician: Carlos Kathleen MD Attending Physician: Carlos Kathleen MD History of Present Illness Mr. Jae Styles is a 27 year-old male with a history of polysubstance abuse, including IVDA, who presented to [facility] for evaluation of pain and swelling of the right upper extremity. Symptoms started on Wednesday. Jae describes notable pain and discomfort in the right shoulder with progressive swelling in the arm. He also describes generalized myalgias and fatigue. He denies any fevers or chills. He denies any trauma. Unfortunately, there is a period of amnesia regarding events on Wednesday. He was abusing pain medications during spring and traveled to [place] where he also used amphetamines. Eventually, he reports that he woke up in an unknown hotel room feeling confused and extremely fatigued and achy. He noticed an diffuse rash on his abdomen. Jae has been non- oliguric. He denies any known prior history of kidney dysfunction. Serum creatinine on admission 3.28 mg/dL. Repeat labs pending due to difficulty with IV blood draw. Urine notable for trace protein and 3+ blood, 5-10 WBC, 0-4 RBC. NSS infusing at 200 ml/[place] [address]. Denies recent NSAID use. Started on antibiotic therapy with Daptomycin and Zosyn. Allergies Allergy/AdvReac Type Severity Reaction Status Date / Time hydrocodone Allergy Intermediate rash Verified 11/09/22 20:04 acetaminophen Allergy Unknown PER Verified 11/09/22 20:04 PT--DOESN'T TAKE D/T SIDE EFFECT LIVER CAUSING ISSUE oxycodone Allergy Unknown heat Verified 11/09/22 20:04 flashes Home Medications Medication Instructions Recorded Confirmed Type Medical Marijuana 1 dose inhalation DIRECTED PRN 11/09/22 11/09/22 History NEEDED PER PT. alprazolam 0.25 mg tablet 0.25 mg PO HS PRN Sleep 11/09/22 11/09/22 History clonazepam 1 mg tablet 1 mg PO BID PRN Anxiety 11/09/22 11/09/22 History dextroamphetamine-amphetamine 20 20 mg PO TID 11/09/22 11/09/22 History mg tablet Patient History Social History Smoking Status: Current some day smoker Tobacco Type: E-cigarettes / Vaping Second Hand Exposure: No; Do You Dip or Chew Tobacco: No; Hx Alcohol Use: Yes Alcohol type: beer and hard liquor Hx Substance Use: Yes Last Used Substance: Days (ago) Last Used Substance Other:: 11/07/22 Current Living Situation: Alone Other Information That Helps Us Care for You: No Feels Safe at Home: Yes Review of Systems Review of Systems: All systems reviewed & are unremarkable except as noted in HPI & below Physical Exam Constitutional: well developed and cooperative; no acute distress Eyes: + anicteric sclerae; no corneal abnormality ENMT: Mouth: no oral mucosal abnormality and oral mucous membranes not dry few aphthous oral ulcers Neck: normal visual inspection and trachea midline Respiratory: normal respiratory effort Auscultation: lungs clear to auscultation bilaterally Cardiovascular: Rate/Rhythm: regular rate Heart Sounds: normal S1 and normal S2 Extremities: + edema (RUE extending from shoulder to forearm) Musculoskeletal: Extremities: no cyanosis and no clubbing Skin: normal turgor; no jaundice Neurologic: Motor/Sensory: no tremor and no asterixis Psychiatric: Orientation: alert and oriented x 3 Results & Data ([facility]) Vital Signs (Past 12 Hours) Vital Signs Temp Pulse Pulse Resp BP BP Pulse Ox 11/10/22 09:01 36.6 C 63 18 141/96 H 99 11/10/22 07:16 55 L 11/10/22 06:06 67 11/10/22 04:11 36.5 C 67 20 119/77 97 11/10/22 00:50 69 11/10/22 01:42 36.8 C 16 140/88 100 11/10/22 00:00 66 17 129/80 100 11/09/22 22:57 75 O2 Del Method 11/10/22 09:01 Room Air 11/10/22 07:16 11/10/22 06:06 11/10/22 04:11 Room Air 11/10/22 00:50 11/10/22 01:42 Room Air 11/10/22 00:00 Room Air 11/09/22 22:57 Laboratory Results Laboratory Results - last 24 hr 11/09/22 11/09/22 11/09/22 18:10 18:10 18:10 WBC RBC Hgb Hct MCV MCH MCHC RDW Std Deviation RDW Coeff of Raúl Plt Count MPV Immature Gran % (Auto) Neut % (Auto) Lymph % (Auto) Stone % (Auto) Eos % (Auto) Baso % (Auto) Neut # (Auto) Lymph # (Auto) Stone # (Auto) Eos # (Auto) Baso # (Auto) Immature Gran # (Auto) PT INR APTT PTT Ratio Sodium Potassium Chloride Carbon Dioxide Anion Gap BUN Creatinine Est Cr Clr Drug Dosing Est GFR ( Amer) Est GFR (Non-Af Amer) BUN/Creatinine Ratio Glucose Lactate Calcium Magnesium Total Bilirubin AST ALT Alkaline Phosphatase Total Creatine Kinase Total Protein Albumin Globulin Albumin/Globulin Ratio Procalcitonin Urine Color Yellow Urine Appearance Clear Urine pH 5.5 Ur Specific [place] 1.006 Urine Protein Trace H Urine Glucose (UA) Negative Urine Ketones Negative Urine Blood 3+ H Urine Nitrite Negative Urine Bilirubin Negative Urine Urobilinogen Negative Ur Leukocyte Esterase Negative Urine WBC (Auto) 5-10 H Urine RBC (Auto) 0-4 U Hyaline Cast (Auto) 1-5 U Epithel Cells (Auto) 5-10 H Urine Bacteria (Auto) 1+ H Urine Yeast Not Reportable Urine Opiates Screen Neg Ur Methadone, Qual Neg Urine Barbiturates Neg Ur Phencyclidine (PCP) Neg U Amphetamines Confirm Pending U Amphetamin/Meth Scrn Pos H U Methamphetamin Confrm Pending MDMA (Ecstasy) Screen Neg U Benzodiazepines Scrn Neg Ur Cocaine Metabolite Neg U Marijuana (THC) Screen Pos H U Marijuana THC Carboxy Pending Drug Screen Comment Pending SARS-CoV-2 (PCR) Hepatitis A IgM Ab Hep Bs Antigen Hep Bs Ag Confirmation Hep B Core IgM Ab Hepatitis C Ab (EIA) Hep C Ab Signal/Cutoff Influenza Type A (PCR) Influenza Type B (PCR) RSV (RT-PCR) 11/09/22 11/09/22 11/09/22 18:32 18:32 18:32 WBC 15.24 H RBC 5.77 Hgb 17.5 Hct 49.4 MCV 85.6 MCH 30.3 MCHC 35.4 RDW Std Deviation 38.5 RDW Coeff of Raúl 12.4 Plt Count 192 MPV 10.3 Immature Gran % (Auto) 0.5 Neut % (Auto) 86.2 Lymph % (Auto) 7.5 Stone % (Auto) 4.9 Eos % (Auto) 0.6 Baso % (Auto) 0.3 Neut # (Auto) 13.15 H Lymph # (Auto) 1.15 L Stone # (Auto) 0.74 H Eos # (Auto) 0.09 Baso # (Auto) 0.04 Immature Gran # (Auto) 0.07 PT INR APTT PTT Ratio Sodium 128 L Potassium 3.6 Chloride 93 L Carbon Dioxide 26 Anion Gap 9 BUN 51 H Creatinine 3.28 H Est Cr Clr Drug Dosing Not Reportable Est GFR ( Amer) 28.3 Est GFR (Non-Af Amer) 24.4 BUN/Creatinine Ratio 15.5 Glucose 100 H Lactate 1.2 Calcium 8.5 Magnesium 2.5 H Total Bilirubin 1.1 H AST 2043 H ALT 1268 H Alkaline Phosphatase 61 Total Creatine Kinase 38503 H Total Protein 7.5 Albumin 4.3 Globulin 3.2 Albumin/Globulin Ratio 1.3 Procalcitonin Urine Color Urine Appearance Urine pH Ur Specific [place] Urine Protein Urine Glucose (UA) Urine Ketones Urine Blood Urine Nitrite Urine Bilirubin Urine Urobilinogen Ur Leukocyte Esterase Urine WBC (Auto) Urine RBC (Auto) U Hyaline Cast (Auto) U Epithel Cells (Auto) Urine Bacteria (Auto) Urine Yeast Urine Opiates Screen Ur Methadone, Qual Urine Barbiturates Ur Phencyclidine (PCP) U Amphetamines Confirm U Amphetamin/Meth Scrn U Methamphetamin Confrm MDMA (Ecstasy) Screen U Benzodiazepines Scrn Ur Cocaine Metabolite U Marijuana (THC) Screen U Marijuana THC Carboxy Drug Screen Comment SARS-CoV-2 (PCR) Hepatitis A IgM Ab Hep Bs Antigen Hep Bs Ag Confirmation Hep B Core IgM Ab Hepatitis C Ab (EIA) Hep C Ab Signal/Cutoff Influenza Type A (PCR) Influenza Type B (PCR) RSV (RT-PCR) 11/09/22 11/09/22 11/09/22 18:32 20:50 21:45 WBC RBC Hgb Hct MCV MCH MCHC RDW Std Deviation RDW Coeff of Raúl Plt Count MPV Immature Gran % (Auto) Neut % (Auto) Lymph % (Auto) Stone % (Auto) Eos % (Auto) Baso % (Auto) Neut # (Auto) Lymph # (Auto) Stone # (Auto) Eos # (Auto) Baso # (Auto) Immature Gran # (Auto) PT INR APTT PTT Ratio Sodium Potassium Chloride Carbon Dioxide Anion Gap BUN Creatinine Est Cr Clr Drug Dosing Est GFR ( Amer) Est GFR (Non-Af Amer) BUN/Creatinine Ratio Glucose Lactate Calcium Magnesium Total Bilirubin AST ALT Alkaline Phosphatase Total Creatine Kinase Total Protein Albumin Globulin Albumin/Globulin Ratio Procalcitonin 4.09 H Urine Color Urine Appearance Urine pH Ur Specific [place] Urine Protein Urine Glucose (UA) Urine Ketones Urine Blood Urine Nitrite Urine Bilirubin Urine Urobilinogen Ur Leukocyte Esterase Urine WBC (Auto) Urine RBC (Auto) U Hyaline Cast (Auto) U Epithel Cells (Auto) Urine Bacteria (Auto) Urine Yeast Urine Opiates Screen Ur Methadone, Qual Urine Barbiturates Ur Phencyclidine (PCP) U Amphetamines Confirm U Amphetamin/Meth Scrn U Methamphetamin Confrm MDMA (Ecstasy) Screen U Benzodiazepines Scrn Ur Cocaine Metabolite U Marijuana (THC) Screen U Marijuana THC Carboxy Drug Screen Comment SARS-CoV-2 (PCR) NEGATIVE Hepatitis A IgM Ab Pending Hep Bs Antigen Pending Hep Bs Ag Confirmation Pending Hep B Core IgM Ab Pending Hepatitis C Ab (EIA) Pending Hep C Ab Signal/Cutoff Pending Influenza Type A (PCR) Negative Influenza Type B (PCR) Negative RSV (RT-PCR) Negative 11/10/22 11/10/22 11/10/22 00:52 10:02 10:02 WBC Pending RBC Pending Hgb Pending Hct Pending MCV Pending MCH Pending MCHC Pending RDW Std Deviation RDW Coeff of Raúl Plt Count Pending MPV Immature Gran % (Auto) Neut % (Auto) Lymph % (Auto) Stone % (Auto) Eos % (Auto) Baso % (Auto) Neut # (Auto) Lymph # (Auto) Stone # (Auto) Eos # (Auto) Baso # (Auto) Immature Gran # (Auto) PT 11.5 Pending INR 1.1 Pending APTT 21.4 Pending PTT Ratio 0.8 Pending Sodium Potassium Chloride Carbon Dioxide Anion Gap BUN Creatinine Est Cr Clr Drug Dosing Est GFR ( Amer) Est GFR (Non-Af Amer) BUN/Creatinine Ratio Glucose Lactate Calcium Magnesium Total Bilirubin AST ALT Alkaline Phosphatase Total Creatine Kinase Total Protein Albumin Globulin Albumin/Globulin Ratio Procalcitonin Urine Color Urine Appearance Urine pH Ur Specific [place] Urine Protein Urine Glucose (UA) Urine Ketones Urine Blood Urine Nitrite Urine Bilirubin Urine Urobilinogen Ur Leukocyte Esterase Urine WBC (Auto) Urine RBC (Auto) U Hyaline Cast (Auto) U Epithel Cells (Auto) Urine Bacteria (Auto) Urine Yeast Urine Opiates Screen Ur Methadone, Qual Urine Barbiturates Ur Phencyclidine (PCP) U Amphetamines Confirm U Amphetamin/Meth Scrn U Methamphetamin Confrm MDMA (Ecstasy) Screen U Benzodiazepines Scrn Ur Cocaine Metabolite U Marijuana (THC) Screen U Marijuana THC Carboxy Drug Screen Comment SARS-CoV-2 (PCR) Hepatitis A IgM Ab Hep Bs Antigen Hep Bs Ag Confirmation Hep B Core IgM Ab Hepatitis C Ab (EIA) Hep C Ab Signal/Cutoff Influenza Type A (PCR) Influenza Type B (PCR) RSV (RT-PCR) 11/10/22 10:02 WBC RBC Hgb Hct MCV MCH MCHC RDW Std Deviation RDW Coeff of Raúl Plt Count MPV Immature Gran % (Auto) Neut % (Auto) Lymph % (Auto) Stone % (Auto) Eos % (Auto) Baso % (Auto) Neut # (Auto) Lymph # (Auto) Stone # (Auto) Eos # (Auto) Baso # (Auto) Immature Gran # (Auto) PT INR APTT PTT Ratio Sodium Pending Potassium Pending Chloride Pending Carbon Dioxide Pending Anion Gap Pending BUN Pending Creatinine Pending Est Cr Clr Drug Dosing Pending Est GFR ( Amer) Pending Est GFR (Non-Af Amer) Pending BUN/Creatinine Ratio Pending Glucose Pending Lactate Calcium Pending Magnesium Pending Total Bilirubin Pending AST Pending ALT Pending Alkaline Phosphatase Pending Total Creatine Kinase Pending Total Protein Pending Albumin Pending Globulin Pending Albumin/Globulin Ratio Pending Procalcitonin Urine Color Urine Appearance Urine pH Ur Specific [place] Urine Protein Urine Glucose (UA) Urine Ketones Urine Blood Urine Nitrite Urine Bilirubin Urine Urobilinogen Ur Leukocyte Esterase Urine WBC (Auto) Urine RBC (Auto) U Hyaline Cast (Auto) U Epithel Cells (Auto) Urine Bacteria (Auto) Urine Yeast Urine Opiates Screen Ur Methadone, Qual Urine Barbiturates Ur Phencyclidine (PCP) U Amphetamines Confirm U Amphetamin/Meth Scrn U Methamphetamin Confrm MDMA (Ecstasy) Screen U Benzodiazepines Scrn Ur Cocaine Metabolite U Marijuana (THC) Screen U Marijuana THC Carboxy Drug Screen Comment SARS-CoV-2 (PCR) Hepatitis A IgM Ab Hep Bs Antigen Hep Bs Ag Confirmation Hep B Core IgM Ab Hepatitis C Ab (EIA) Hep C Ab Signal/Cutoff Influenza Type A (PCR) Influenza Type B (PCR) RSV (RT-PCR) PG Care Time/CCT Total # of Minutes Spent Total Time Spent with Patient: Total time spent is greater than 50% in coordination of care (as documented) at patient's floor/unit and/or counseling patient: Coding Level of Care Code 02674 IN/OBS CONSULT LVL 4,60M Diagnoses Acute renal failure N17.9 Rhabdomyolysis M62.82 Edema of right upper extremity R60.0 Substance abuse F19.10 Transaminitis R74.01
[2022-11-10 10:29] LABS: Basophils # (auto) 0.03 K/uL (0-0.2); Basophils % (auto) 0.3 %; Eosinophils # (auto) 0.09 K/uL (0-0.50); Eosinophils % (auto) 0.9 %; Hemoglobin 14.9 g/dl (14.0-18.0); Immature Granulocytes # (auto) 0.04 K/uL (0.01-0.20); Immature Granulocytes % (auto) 0.4 %; Lymphocytes # (auto) 0.93 K/uL (1.2-3.4); Lymphocytes % (auto) 8.9 %; Mean Corpuscular Hemoglobin 29.9 pg (25.0-34.0); Mean Corpuscular Hgb Conc 35.5 g/dL (32.0-36.0); Mean Corpuscular Volume 84.3 fL (80.0-100.0); Mean Platelet Volume 10.5 fL (9.4-12.4); Monocytes # (auto) 0.74 K/uL (0.11-0.59); Monocytes % (auto) 7.1 %; Neutrophils # (auto) 8.61 K/uL (1.40-6.50); Neutrophils % (auto) 82.4 %; Platelet Count 173 K/uL (130-400); RDW Coefficient of Variation 12.4 % (11.5-14.5); RDW Standard Deviation 37.8 fL (36.4-46.3); Red Blood Count 4.98 M/uL (4.70-6.10); White Blood Count 10.44 K/ul (4.8-10.8)
[2022-11-10] MEDS: NORMOSOL-R 1,000 ML IV SCH ×3 (10:37→21:02)
[2022-11-10 10:52] LABS: INR 1.1 (0.9-1.1); Partial Thromboplastin Ratio 0.9; Partial Thromboplastin Time 25.9 Seconds (21.0-31.0); Prothrombin Time 11.2 Seconds (9.0-12.0)
[2022-11-10 10:57] LABS: Albumin Globulin Ratio 1.3 (0.9-2); Albumin Level 3.3 gm/dl (3.4-5.0); BUN Creatinine Ratio 13.4 (10-20); Calcium 7.5 mg/dl (8.5-10.1); Creatinine Clr Calc Pharmacy 32.1 ml/min; Est GFR (African American) 30.8 ml/min; Est GFR (Non-African American) 26.6 ml/min; Globulin 2.5 gm/dl (2.5-4.0); Magnesium 2.5 mg/dl (1.7-2.4); Potassium 3.2 mmol/L (3.5-5.1); Total Protein 5.8 gm/dl (6.0-8.3)
--- NOTE | 2022-11-10 11:49 | Ultrasound Report ---
US renal/blad retro comp CLINICAL HISTORY: john TECHNIQUE: Multiple sonographic real-time images of the kidneys and bladder were obtained. COMPARISON: None available at the time of this dictation. FINDINGS: The right kidney measures 11.8 cm in length, and the left kidney measures 11.6 cm in length. The kidney is minimally echogenic. No hydronephrosis is identified. No renal lesion is identified. T race free fluid is seen. Kidney is minimally echogenic. No hydronephrosis is identified. No renal lesion is identified. No pe rinephric fluid collection is seen. The bladder is partially distended. Bilateral jets are seen. IMPRESSION: 1. Bilateral kidneys are minimally echogenic which may represent medical renal disease. 2. Trace free fluid is noted about the right kidney, nonspecific. ACT 112: Negative or not required by law. Electronically signed by: Misael Lucas M.D. 11/10/2022 11:48 AM
--- NOTE | 2022-11-10 12:01 | XRay Report ---
PA CHEST WITH BILATERAL RIB SERIES CLINICAL HISTORY: Bruising on the chest. FINDINGS: A PA chest radiograph with 8 additional views from a bilateral rib series is obtained. No p rior studies are available for comparison at the time of dictation. The cardiomediastinal silhouette is unremarkable. The lungs and pleural spaces are clear. No pneumothorax is seen. There is no radiogr aphic evidence of acute/displaced rib fracture on the bilateral rib series. The remainder of the bony thorax is grossly intact. IMPRESSION: 1. The lungs are clear. 2. There is no radiographic evidence of acute/displaced rib fracture seen on the bilateral rib series . ACT 112: Negative or not required by law. Electronically signed by: Sebastian Angelo M.D. 11/10/2022 11:59 AM
[2022-11-10] MEDS ORDERED: POTASSIUM CHLORIDE CRTAB 20 MEQ TABCR PO STA (13:07)
[2022-11-10] MEDS ORDERED: MoRPHine SULFATE 2 MG/ML CARP IV PRN (13:40)
--- NOTE | 2022-11-10 13:55 | Orthopedic Consultation ---
Date of Consultation November 10, 2022 Assessment & Plan (1) Edema of right upper extremity: -Spoke with attending physician about pt's case. Given pt's exam, there is no area of palpable fluctuance or active drainage that would warrant an I&D. At this time, would recommend ordering MR of the RUE to further evaluate. Will f/u final imaging results. -Continue IV antibiotics and medical management per primary team. History of Present Illness Attending Physician: Carlos Kathleen MD History of Present Illness Patient is a 27-year-old male who presented to the ED due to complaints of right arm and shoulder pain and swelling. Patient states that over the past few days his pain has gotten worse in his arm. 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 States that over spring he was using opiates and speed. When he came back home he noticed he had increasing fatigue, right arm pain and swelling, and also a rash on his stomach which prompted him to come to the ED for further evaluation. Patient underwent RUE Venous Doppler which was negative for DVT and right shoulder x-ray did not reveal any bony abnormality but did appreciate some fluid in the soft tissue. Orthopedic team was consulted for further evaluation. Allergies Allergy/AdvReac Type Severity Reaction Status Date / Time hydrocodone Allergy Intermediate rash Verified 11/09/22 20:04 acetaminophen Allergy Unknown PER Verified 11/09/22 20:04 PT--DOESN'T TAKE D/T SIDE EFFECT LIVER CAUSING ISSUE oxycodone Allergy Unknown heat Verified 11/09/22 20:04 flashes Home Medications Medication Instructions Recorded Confirmed Type Medical Marijuana 1 dose inhalation DIRECTED PRN 11/09/22 11/09/22 History NEEDED PER PT. alprazolam 0.25 mg tablet 0.25 mg PO HS PRN Sleep 11/09/22 11/09/22 History clonazepam 1 mg tablet 1 mg PO BID PRN Anxiety 11/09/22 11/09/22 History dextroamphetamine-amphetamine 20 20 mg PO TID 11/09/22 11/09/22 History mg tablet Patient History Social History Smoking Status: Current some day smoker Tobacco Type: E-cigarettes / Vaping Second Hand Exposure: No; Do You Dip or Chew Tobacco: No; Hx Alcohol Use: Yes Alcohol type: beer and hard liquor Hx Substance Use: Yes Last Used Substance: Days (ago) Last Used Substance Other:: 11/07/22 Communication Ability: Effective Current Living Situation: Alone Other Information That Helps Us Care for You: No Feels Safe at Home: Yes Assistive Devices: None Review of Systems Review of Systems: All systems reviewed & are unremarkable except as noted in HPI & below Constitutional: + fatigue and + malaise Respiratory: no problem reported Cardiovascular: no chest pain, no chest pain at rest, no dyspnea and no sync ope Gastrointestinal: no abdominal pain, no nausea and no vomiting Physical Exam Physical Exam: RUE with edema appreciated extending from mid forearm to the shoulder when compared to LUE. No bony deformities appreciated. Moderate tenderness with palpation over the shoulder but does have full ROM. No areas of fluctuance, warmth, or erythema appreciated. Capillary refill less than 2 seconds, distal sensation and perfusion grossly intact. Results & Data ([facility]) Vital Signs (Past 12 Hours) Vital Signs Temp Pulse Pulse Resp BP Pulse Ox O2 Del Method 11/10/22 09:01 36.6 C 63 18 141/96 H 99 Room Air 11/10/22 07:16 55 L 11/10/22 06:06 67 11/10/22 04:11 36.5 C 67 20 119/77 97 Room Air Laboratory Results Laboratory Results WBC 10.44 K/ul (4.8-10.8) 11/10/22 10:02 RBC 4.98 M/uL (4.70-6.10) 11/10/22 10:02 Hgb 14.9 g/dl (14.0-18.0) 11/10/22 10:02 Hct 42.0 % (42.0-52.0) 11/10/22 10:02 MCV 84.3 fL (80.0-100.0) 11/10/22 10:02 MCH 29.9 pg (25.0-34.0) 11/10/22 10:02 MCHC 35.5 g/dL (32.0-36.0) 11/10/22 10:02 RDW Std Deviation 37.8 fL (36.4-46.3) 11/10/22 10:02 RDW Coeff of Raúl 12.4 % (11.5-14.5) 11/10/22 10:02 Plt Count 173 K/uL (130-400) 11/10/22 10:02 MPV 10.5 fL (9.4-12.4) 11/10/22 10:02 Immature Gran % (Auto) 0.4 % 11/10/22 10:02 Neut % (Auto) 82.4 % 11/10/22 10:02 Lymph % (Auto) 8.9 % 11/10/22 10:02 [place] % (Auto) 7.1 % 11/10/22 10:02 Eos % (Auto) 0.9 % 11/10/22 10:02 Baso % (Auto) 0.3 % 11/10/22 10:02 Neut # (Auto) 8.61 K/uL (1.40-6.50) H 11/10/22 10:02 Lymph # (Auto) 0.93 K/uL (1.2-3.4) L 11/10/22 10:02 [place] # (Auto) 0.74 K/uL (0.11-0.59) H 11/10/22 10:02 Eos # (Auto) 0.09 K/uL (0-0.50) 11/10/22 10:02 Baso # (Auto) 0.03 K/uL (0-0.2) 11/10/22 10:02 Immature Gran # (Auto) 0.04 K/uL (0.01-0.20) 11/10/22 10:02 PT 11.2 Seconds (9.0-12.0) 11/10/22 10:02 INR 1.1 (0.9-1.1) 11/10/22 10:02 APTT 25.9 Seconds (21.0-31.0) 11/10/22 10:02 PTT Ratio 0.9 11/10/22 10:02 Sodium 135 mmol/L (136-145) L 11/10/22 10:02 Potassium 3.2 mmol/L (3.5-5.1) L 11/10/22 10:02 Chloride 104 mmol/L (98-107) 11/10/22 10:02 Carbon Dioxide 24 mmol/L (21-32) 11/10/22 10:02 Anion Gap 7 (3-11) 11/10/22 10:02 BUN 41 mg/dl (6-23) H 11/10/22 10:02 Creatinine 3.06 mg/dl (0.6-1.4) H 11/10/22 10:02 Est Cr Clr Drug Dosing 32.1 ml/min 11/10/22 10:02 Est GFR ( Amer) 30.8 ml/min 11/10/22 10:02 Est GFR (Non-Af Amer) 26.6 ml/min 11/10/22 10:02 BUN/Creatinine Ratio 13.4 (10-20) 11/10/22 10:02 Glucose 121 mg/dl (70-99(Fasting)) H 11/10/22 10:02 Lactate 1.2 mmol/L (0.4-2.0) 11/09/22 18:32 Calcium 7.5 mg/dl (8.5-10.1) L 11/10/22 10:02 Magnesium 2.5 mg/dl (1.7-2.4) H 11/10/22 10:02 Total Bilirubin 1.0 mg/dl (0.2-1.0) 11/10/22 10:02 AST 1075 U/L (13-39) H 11/10/22 10:02 ALT 836 U/L (7-52) H 11/10/22 10:02 Alkaline Phosphatase 45 U/L (34-104) 11/10/22 10:02 Total Creatine Kinase 95361 U/L (30-223) H 11/10/22 10:02 Total Protein 5.8 gm/dl (6.0-8.3) L D 11/10/22 10:02 Albumin 3.3 gm/dl (3.4-5.0) L 11/10/22 10:02 Globulin 2.5 gm/dl (2.5-4.0) 11/10/22 10:02 Albumin/Globulin Ratio 1.3 (0.9-2) 11/10/22 10:02 Procalcitonin 4.09 ng/ml (0-0.5) H 11/09/22 18:32 Urine Color Yellow 11/09/22 18:10 Urine Appearance Clear (Clear) 11/09/22 18:10 Urine pH 5.5 (4.5-7.5) 11/09/22 18:10 Ur Specific [place] 1.006 (1.000-1.030) 11/09/22 18:10 Urine Protein Trace (Negative) H 11/09/22 18:10 Urine Glucose (UA) Negative (Negative) 11/09/22 18:10 Urine Ketones Negative (Negative) 11/09/22 18:10 Urine Blood 3+ (Negative) H 11/09/22 18:10 Urine Nitrite Negative (Negative) 11/09/22 18:10 Urine Bilirubin Negative (Negative) 11/09/22 18:10 Urine Urobilinogen Negative (Negative) 11/09/22 18:10 Ur Leukocyte Esterase Negative (Negative) 11/09/22 18:10 Urine WBC (Auto) 5-10 /hpf (0-5) H 11/09/22 18:10 Urine RBC (Auto) 0-4 /hpf (0-4) 11/09/22 18:10 U Hyaline Cast (Auto) 1-5 /lpf (0-5) 11/09/22 18:10 U Epithel Cells (Auto) 5-10 /lpf (0-5) H 11/09/22 18:10 Urine Bacteria (Auto) 1+ (Negative) H 11/09/22 18:10 Urine Yeast Not Reportable 11/09/22 18:10 Urine Opiates Screen Neg (Neg) 11/09/22 18:10 Ur Methadone, Qual Neg (Neg) 11/09/22 18:10 Urine Barbiturates Neg (Neg) 11/09/22 18:10 Ur Phencyclidine (PCP) Neg (Neg) 11/09/22 18:10 U Amphetamin/Meth Scrn Pos (Neg) H 11/09/22 18:10 MDMA (Ecstasy) Screen Neg (Neg) 11/09/22 18:10 U Benzodiazepines Scrn Neg (Neg) 11/09/22 18:10 Ur Cocaine Metabolite Neg (Neg) 11/09/22 18:10 U Marijuana (THC) Screen Pos (Neg) H 11/09/22 18:10 SARS-CoV-2 (PCR) NEGATIVE (Negative) 11/09/22 21:45 Influenza Type A (PCR) Negative (Neg) 11/09/22 21:45 Influenza Type B (PCR) Negative (Neg) 11/09/22 21:45 RSV (RT-PCR) Negative (Neg) 11/09/22 21:45 Impressions Shoulder X-Ray 11/09/22 17:20 XR shoulder RT min 2V routine CLINICAL HISTORY: Right shoulder pain. COMPARISON STUDY: None. FINDINGS: Soft tissue swelling within the right shoulder. No acute fracture or dislocation. The right clavicle is intact. IMPRESSION: Soft tissue swelling within the right shoulder. No fracture or dislocation. ACT 112: Negative or not required by law. Electronically signed by: Richard Duvall M.D. 11/09/2022 6:29 PM Venous Doppler Study 11/09/22 17:20 Exam(s): US VENOUS RIGHT UPPER EXTREMITY EXAM: US Duplex Right Upper Extremity Veins CLINICAL HISTORY: Reason for exam: R arm pain and edema. TECHNIQUE: Real-time duplex ultrasound scan of the right upper extremity veins integrating B-mode two-dimensional vascular structure, Doppler spectral analysis, color flow Doppler imaging and compression. COMPARISON: None FINDINGS: Deep veins: Unremarkable. No DVT in the internal jugular, subclavian, axillary, or brachial veins. The veins demonstrate normal color flow, are normally compressible, with normal phasic flow and/or augmentation response. Superficial veins: Unremarkable. No thrombus in the visualized basilic and cephalic veins. Soft tissues: Edema in the subcutaneous soft tissues. There also appears to be muscular edema in the shoulder. IMPRESSION: No venous thrombosis in the right upper extremity. Soft tissue and muscular edema. Electronically signed by: Lilliam Arellano M.D. 11/09/22 21:50 PM Renal Ultrasound 11/10/22 10:20 US renal/blad retro comp CLINICAL HISTORY: john TECHNIQUE: Multiple sonographic real-time images of the kidneys and bladder were obtained. COMPARISON: None available at the time of this dictation. FINDINGS: The right kidney measures 11.8 cm in length, and the left kidney measures 11.6 cm in length. The kidney is minimally echogenic. No hydronephrosis is identified. No renal lesion is identified. Trace free fluid is seen. Kidney is minimally echogenic. No hydronephrosis is identified. No renal lesion is identified. No perinephric fluid collection is seen. The bladder is partially distended. Bilateral jets are seen. IMPRESSION: 1. Bilateral kidneys are minimally echogenic which may represent medical renal disease. 2. Trace free fluid is noted about the right kidney, nonspecific. ACT 112: Negative or not required by law. Electronically signed by: Misael Lucas M.D. 11/10/2022 11:48 AM Ribs w/Chest X-Ray 11/10/22 11:14 PA CHEST WITH BILATERAL RIB SERIES CLINICAL HISTORY: Bruising on the chest. FINDINGS: A PA chest radiograph with 8 additional views from a bilateral rib series is obtained. No prior studies are available for comparison at the time of dictation. The cardiomediastinal silhouette is unremarkable. The lungs and pleural spaces are clear. No pneumothorax is seen. There is no radiographic evidence of acute/displaced rib fracture on the bilateral rib series. The remainder of the bony thorax is grossly intact. IMPRESSION: 1. The lungs are clear. 2. There is no radiographic evidence of acute/displaced rib fracture seen on the bilateral rib series. ACT 112: Negative or not required by law. Electronically signed by: Sebastian Angelo M.D. 11/10/2022 11:59 AM
[2022-11-10] MEDS: NICOTINE 21 MG/24 HR TDSY TD SCH (13:57)
--- NOTE | 2022-11-10 15:38 | Hospitalist Progress Note ---
Date of Service November 10, 2022 Assessment & Plan (1) Acute renal failure: Plan: Presented with a creatinine of 3.2 on admission Down to 3.0 with IV fluids Secondary to rhabdomyolysis Continue IV fluids at 200 mils an hour Nephrology on board Retroperitoneal ultrasound was unremarkable Avoid nephrotoxic medications Monitor BMP closely Present on Admission?: Yes (2) Rhabdomyolysis: Plan: Nontraumatic rhabdomyolysis Secondary to polysubstance abuse CPK 79,000 on admission, now trended down to 27,000 Improving Continue IV fluids at 200 mils an hour Monitor CPK daily Present on Admission?: Yes (3) Substance abuse: Plan: Patient is an IV drug user Use multiple drugs Urine drug screen positive for marijuana, amphetamine Pain management will be challenging We will treat with Dilaudid IV for the time being (4) Edema of right upper extremity: Plan: Right upper extremity ultrasound showed diffuse swelling and no localized fluid collection The pain is worse today Orthopedics consulted who recommended MRI of the right upper extremity without contrast. I placed the order as recommended. Procalcitonin level is elevated at 4 WBC count was elevated at 15 yesterday now down to 10 On IV daptomycin and Zosyn Patient has fresh skin mendiola of recent IV substance abuse on his right hand, raising the possibility of infection/abscess Pain management with IV Dilaudid (5) Transaminitis: Plan: Most likely secondary to rhabdomyolysis AST and ALT are trending down Monitor (6) Friction burn of skin: Plan: The 2 spots in his lower chest/upper abdomen are most likely from friction burn The patient says that he cannot remember very well but he was most likely sitting in a slouched over position and fell asleep or he could have been laying on his tummy for several hours. Rib x-rays ruled out rib fractures Present on Admission?: Yes Admission and Anticipated Discharge Date Admission Date: November 09, 2022 Subjective Patient complains of severe right arm pain. Says that the pain is no better today than yesterday. Other than the right arm, he is feeling better overall. He is feeling slightly stronger, has better appetite. Not nauseous anymore. Review of Systems Review of Systems: All systems reviewed & are unremarkable except as noted in Subjective Physical Exam Physical Exam: General: Awake, conversant Heart: S1, S2/regular rate and rhythm, no murmur rubs or gallops Lungs: Clear to auscultation bilaterally. Normal effort. 2 red painful spots on both sides in the upper abdomen/lower chest against the lower ribs. Abdomen: Soft/nontender/nondistended. No hepatosplenomegaly Extremities: No clubbing/cyanosis. No edema. Right upper extremity is more swollen than the left upper extremity. The swelling is more localized towards the right upper arm near the deltoid muscle. The whole right arm is tender. He is able to move his right elbow without any restrictions. Right shoulder movement is restricted by pain. Behavior: Appropriate, cooperative Results & Data Results & Data ([facility]) Vital Signs (Past 12 Hours) Vital Signs Temp Pulse Pulse Resp BP Pulse Ox O2 Del Method 11/10/22 14:39 36.6 C 51 L 16 132/77 100 Room Air 11/10/22 09:01 36.6 C 63 18 141/96 H 99 Room Air 11/10/22 07:16 55 L 11/10/22 06:06 67 11/10/22 04:11 36.5 C 67 20 119/77 97 Room Air Laboratory Results Abnormal lab results 11/09/22 11/09/22 11/09/22 Range/Units 18:10 18:10 18:32 WBC 15.24 H (4.8-10.8) K/ul Neut # (Auto) 13.15 H (1.40-6.50) K/uL Lymph # (Auto) 1.15 L (1.2-3.4) K/uL Sac # (Auto) 0.74 H (0.11-0.59) K/uL Sodium (136-145) mmol/L Potassium (3.5-5.1) mmol/L Chloride (98-107) mmol/L BUN (6-23) mg/dl Creatinine (0.6-1.4) mg/dl Glucose (70-99(Fasting)) mg/dl Calcium (8.5-10.1) mg/dl Magnesium (1.7-2.4) mg/dl Total Bilirubin (0.2-1.0) mg/dl AST (13-39) U/L ALT (7-52) U/L Total Creatine Kinase (30-223) U/L Total Protein (6.0-8.3) gm/dl Albumin (3.4-5.0) gm/dl Procalcitonin (0-0.5) ng/ml Urine Protein Trace H (Negative) Urine Blood 3+ H (Negative) Urine WBC (Auto) 5-10 H (0-5) /hpf U Epithel Cells (Auto) 5-10 H (0-5) /lpf Urine Bacteria (Auto) 1+ H (Negative) U Amphetamin/Meth Scrn Pos H (Neg) U Marijuana (THC) Screen Pos H (Neg) 11/09/22 11/09/22 11/10/22 Range/Units 18:32 18:32 10:02 WBC (4.8-10.8) K/ul Neut # (Auto) 8.61 H (1.40-6.50) K/uL Lymph # (Auto) 0.93 L (1.2-3.4) K/uL Sac # (Auto) 0.74 H (0.11-0.59) K/uL Sodium 128 L (136-145) mmol/L Potassium (3.5-5.1) mmol/L Chloride 93 L (98-107) mmol/L BUN 51 H (6-23) mg/dl Creatinine 3.28 H (0.6-1.4) mg/dl Glucose 100 H (70-99(Fasting)) mg/dl Calcium (8.5-10.1) mg/dl Magnesium 2.5 H (1.7-2.4) mg/dl Total Bilirubin 1.1 H (0.2-1.0) mg/dl AST 2043 H (13-39) U/L ALT 1268 H (7-52) U/L Total Creatine Kinase 51768 H (30-223) U/L Total Protein (6.0-8.3) gm/dl Albumin (3.4-5.0) gm/dl Procalcitonin 4.09 H (0-0.5) ng/ml Urine Protein (Negative) Urine Blood (Negative) Urine WBC (Auto) (0-5) /hpf U Epithel Cells (Auto) (0-5) /lpf Urine Bacteria (Auto) (Negative) U Amphetamin/Meth Scrn (Neg) U Marijuana (THC) Screen (Neg) 11/10/22 Range/Units 10:02 WBC (4.8-10.8) K/ul Neut # (Auto) (1.40-6.50) K/uL Lymph # (Auto) (1.2-3.4) K/uL Sac # (Auto) (0.11-0.59) K/uL Sodium 135 L (136-145) mmol/L Potassium 3.2 L (3.5-5.1) mmol/L Chloride (98-107) mmol/L BUN 41 H (6-23) mg/dl Creatinine 3.06 H (0.6-1.4) mg/dl Glucose 121 H (70-99(Fasting)) mg/dl Calcium 7.5 L (8.5-10.1) mg/dl Magnesium 2.5 H (1.7-2.4) mg/dl Total Bilirubin (0.2-1.0) mg/dl AST 1075 H (13-39) U/L ALT 836 H (7-52) U/L Total Creatine Kinase 59851 H (30-223) U/L Total Protein 5.8 L D (6.0-8.3) gm/dl Albumin 3.3 L (3.4-5.0) gm/dl Procalcitonin (0-0.5) ng/ml Urine Protein (Negative) Urine Blood (Negative) Urine WBC (Auto) (0-5) /hpf U Epithel Cells (Auto) (0-5) /lpf Urine Bacteria (Auto) (Negative) U Amphetamin/Meth Scrn (Neg) U Marijuana (THC) Screen (Neg) Diagnostic Findings Shoulder X-Ray 11/09/22 17:20 XR shoulder RT min 2V routine CLINICAL HISTORY: Right shoulder pain. COMPARISON STUDY: None. FINDINGS: Soft tissue swelling within the right shoulder. No acute fracture or dislocation. The right clavicle is intact. IMPRESSION: Soft tissue swelling within the right shoulder. No fracture or dislocation. ACT 112: Negative or not required by law. Electronically signed by: Richard Duvall M.D. 11/09/2022 6:29 PM Venous Doppler Study 11/09/22 17:20 Exam(s): US VENOUS RIGHT UPPER EXTREMITY EXAM: US Duplex Right Upper Extremity Veins CLINICAL HISTORY: Reason for exam: R arm pain and edema. TECHNIQUE: Real-time duplex ultrasound scan of the right upper extremity veins integrating B-mode two-dimensional vascular structure, Doppler spectral analysis, color flow Doppler imaging and compression. COMPARISON: None FINDINGS: Deep veins: Unremarkable. No DVT in the internal jugular, subclavian, axillary, or brachial veins. The veins demonstrate normal color flow, are normally compressible, with normal phasic flow and/or augmentation response. Superficial veins: Unremarkable. No thrombus in the visualized basilic and cephalic veins. Soft tissues: Edema in the subcutaneous soft tissues. There also appears to be muscular edema in the shoulder. IMPRESSION: No venous thrombosis in the right upper extremity. Soft tissue and muscular edema. Electronically signed by: Lilliam Arellano M.D. 11/09/22 21:50 PM Renal Ultrasound 11/10/22 10:20 US renal/blad retro comp CLINICAL HISTORY: john TECHNIQUE: Multiple sonographic real-time images of the kidneys and bladder were obtained. COMPARISON: None available at the time of this dictation. FINDINGS: The right kidney measures 11.8 cm in length, and the left kidney measures 11.6 cm in length. The kidney is minimally echogenic. No hydronephrosis is identified. No renal lesion is identified. Trace free fluid is seen. Kidney is minimally echogenic. No hydronephrosis is identified. No renal lesion is identified. No perinephric fluid collection is seen. The bladder is partially distended. Bilateral jets are seen. IMPRESSION: 1. Bilateral kidneys are minimally echogenic which may represent medical renal disease. 2. Trace free fluid is noted about the right kidney, nonspecific. ACT 112: Negative or not required by law. Electronically signed by: Misael Lucas M.D. 11/10/2022 11:48 AM Ribs w/Chest X-Ray 11/10/22 11:14 PA CHEST WITH BILATERAL RIB SERIES CLINICAL HISTORY: Bruising on the chest. FINDINGS: A PA chest radiograph with 8 additional views from a bilateral rib series is obtained. No prior studies are available for comparison at the time of dictation. The cardiomediastinal silhouette is unremarkable. The lungs and pleural spaces are clear. No pneumothorax is seen. There is no radiographic evidence of acute/displaced rib fracture on the bilateral rib series. The remainder of the bony thorax is grossly intact. IMPRESSION: 1. The lungs are clear. 2. There is no radiographic evidence of acute/displaced rib fracture seen on the bilateral rib series. ACT 112: Negative or not required by law. Electronically signed by: Sebastian Angelo M.D. 11/10/2022 11:59 AM PG Care Time/CCT Total # of Minutes Spent Total Time Spent: 50 Total Time Spent with Patient: I spent 35 minutes in the care of this patient. The time was spent in talking to the patient, nurse, outplacement consultant: Orthopedics, care management team, reviewing the chart, formulating plan and placing the orders accordingly. Coding Level of Care Code 52826 SUB INP/OBS CARE 3/50MIN Diagnoses Acute renal failure N17.9 Rhabdomyolysis M62.82 Substance abuse F19.10 Edema of right upper extremity R60.0 Transaminitis R74.01 Friction burn of skin T30.0
[2022-11-10] MEDS: HYDROmorphone INJ 1 MG/ML SYRINGE IV PRN ×2 (16:28→20:29)
[2022-11-10 17:34] LABS: Calcium 7.6 mg/dl (8.5-10.1); Potassium 4.2 mmol/L (3.5-5.1)
[2022-11-10 17:40] LABS: BUN Creatinine Ratio 13.2 (10-20); Est GFR (African American) 36.6 ml/min; Est GFR (Non-African American) 31.6 ml/min
--- NOTE | 2022-11-10 20:03 | Ultrasound Report ---
ULTRASOUND RIGHT UPPER EXTREMITY NONVASCULAR CLINICAL HISTORY: Cellulitis. Assess for abscess overlying the deltoid muscle. FINDINGS: Real-time grayscale and color flow sonography of the right upper extremity soft tissues is performed to assess for abscess. There is no sonographic evidence of abscess in the right upper extre mity. Subcutaneous soft tissue edema is observed. IMPRESSION: Subcutaneous soft tissue edema overlying the deltoid muscle with no organized fluid colle ction to indicate abscess. Electronically signed by: Sebastian Angelo M.D. 11/10/2022 8:02 PM
[2022-11-11] MEDS: HYDROmorphone INJ 1 MG/ML SYRINGE IV PRN ×6 (00:59→23:33)
[2022-11-11] MEDS: NORMOSOL-R 1,000 ML IV SCH ×4 (01:26→19:22)
[2022-11-11] MEDS: DAPTOmycin 250 MG in SYRINGE 0 ML IV SCH (04:53)
[2022-11-11] MEDS: PIPERACILLIN/TAZOBACTAM 3.375 GM in DEXTROSE 5% 100 ML IV SCH ×3 (04:57→21:01)
[2022-11-11] MEDS: NICOTINE 21 MG/24 HR TDSY TD SCH (08:38)
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
--- NOTE | 2022-11-11 11:18 | Orthopedic Progress Note ---
Date of Service November 11, 2022 Assessment & Plan (1) Edema of right upper extremity: Plan: -Imaging reviewed, negative for fluid collection that would indicate an abscess. -Pt with significant improvement of pain and edema and has full ROM of his RUE. -Continue antibiotics and elevate RUE -At this time orthopedic team will sign off, please re-consult with any questions or concerns. Admission and Anticipated Discharge Date Admission Date: November 09, 2022 Subjective -Pt sitting up in bed at time of exam, he has no acute complaints -States that his pain has significantly improved over his right shoulder and forearm -He underwent US of his RUE yesterday, results are negative for fluid collection to indicate an abscess at this time. -He denies CP, SOB, new onset of fevers or chills Review of Systems Review of Systems: All systems reviewed & are unremarkable except as noted in Subjective Physical Exam Physical Exam: RUE with minimal edema appreciated when compared to the left. Mild tenderness with palpation over the right shoulder, however has significantly improved. No pain elicited with ROM. No areas of fluctuance, warmth, or erythema appreciated. Capillary refill less than 2 seconds, distal sensation and perfusion grossly intact. Results & Data Vital Signs (Past 12 Hours) Vital Signs Temp Pulse Pulse Resp BP Pulse Ox O2 Del Method 11/11/22 08:45 46 L 11/11/22 07:19 36.7 C 50 L 16 106/55 L 96 Room Air 11/11/22 04:09 36.8 C 50 L 18 115/65 93 Room Air 11/11/22 00:50 67 11/10/22 23:38 36.2 C L 102 H 20 123/78 95 Room Air Laboratory Results Laboratory Results WBC 7.44 K/ul (4.8-10.8) 11/11/22 11:12 RBC 4.54 M/uL (4.70-6.10) L 11/11/22 11:12 Hgb 13.4 g/dl (14.0-18.0) L 11/11/22 11:12 Hct 39.2 % (42.0-52.0) L 11/11/22 11:12 MCV 86.3 fL (80.0-100.0) 11/11/22 11:12 MCH 29.5 pg (25.0-34.0) 11/11/22 11:12 MCHC 34.2 g/dL (32.0-36.0) 11/11/22 11:12 RDW Std Deviation 40.1 fL (36.4-46.3) 11/11/22 11:12 RDW Coeff of Raúl 12.8 % (11.5-14.5) 11/11/22 11:12 Plt Count 154 K/uL (130-400) 11/11/22 11:12 MPV 10.6 fL (9.4-12.4) 11/11/22 11:12 Immature Gran % (Auto) 0.3 % 11/11/22 11:12 Neut % (Auto) 73.3 % 11/11/22 11:12 Lymph % (Auto) 17.3 % 11/11/22 11:12 Kinney % (Auto) 6.7 % 11/11/22 11:12 Eos % (Auto) 1.9 % 11/11/22 11:12 Baso % (Auto) 0.5 % 11/11/22 11:12 Neut # (Auto) 5.45 K/uL (1.40-6.50) 11/11/22 11:12 Lymph # (Auto) 1.29 K/uL (1.2-3.4) 11/11/22 11:12 Kinney # (Auto) 0.50 K/uL (0.11-0.59) 11/11/22 11:12 Eos # (Auto) 0.14 K/uL (0-0.50) 11/11/22 11:12 Baso # (Auto) 0.04 K/uL (0-0.2) 11/11/22 11:12 Immature Gran # (Auto) 0.02 K/uL (0.01-0.20) 11/11/22 11:12 PT 11.2 Seconds (9.0-12.0) 11/10/22 10:02 INR 1.1 (0.9-1.1) 11/10/22 10:02 APTT 25.9 Seconds (21.0-31.0) 11/10/22 10:02 PTT Ratio 0.9 11/10/22 10:02 Sodium 136 mmol/L (136-145) 11/10/22 17:08 Potassium 4.2 mmol/L (3.5-5.1) D 11/10/22 17:08 Chloride 106 mmol/L (98-107) 11/10/22 17:08 Carbon Dioxide 22 mmol/L (21-32) 11/10/22 17:08 Anion Gap 8 (3-11) 11/10/22 17:08 BUN 35 mg/dl (6-23) H 11/10/22 17:08 Creatinine 2.65 mg/dl (0.6-1.4) H D 11/10/22 17:08 Est Cr Clr Drug Dosing 37.0 ml/min 11/10/22 17:08 Est GFR ( Amer) 36.6 ml/min 11/10/22 17:08 Est GFR (Non-Af Amer) 31.6 ml/min 11/10/22 17:08 BUN/Creatinine Ratio 13.2 (10-20) 11/10/22 17:08 Glucose 97 mg/dl (70-99(Fasting)) 11/10/22 17:08 Lactate 1.2 mmol/L (0.4-2.0) 11/09/22 18:32 Calcium 7.6 mg/dl (8.5-10.1) L 11/10/22 17:08 Magnesium 2.5 mg/dl (1.7-2.4) H 11/10/22 10:02 Total Bilirubin 1.0 mg/dl (0.2-1.0) 11/10/22 10:02 AST 1075 U/L (13-39) H 11/10/22 10:02 ALT 836 U/L (7-52) H 11/10/22 10:02 Alkaline Phosphatase 45 U/L (34-104) 11/10/22 10:02 Total Creatine Kinase 87855 U/L (30-223) H 11/10/22 10:02 Total Protein 5.8 gm/dl (6.0-8.3) L D 11/10/22 10:02 Albumin 3.3 gm/dl (3.4-5.0) L 11/10/22 10:02 Globulin 2.5 gm/dl (2.5-4.0) 11/10/22 10:02 Albumin/Globulin Ratio 1.3 (0.9-2) 11/10/22 10:02 Procalcitonin 4.09 ng/ml (0-0.5) H 11/09/22 18:32 Urine Color Yellow 11/09/22 18:10 Urine Appearance Clear (Clear) 11/09/22 18:10 Urine pH 5.5 (4.5-7.5) 11/09/22 18:10 Ur Specific Roby 1.006 (1.000-1.030) 11/09/22 18:10 Urine Protein Trace (Negative) H 11/09/22 18:10 Urine Glucose (UA) Negative (Negative) 11/09/22 18:10 Urine Ketones Negative (Negative) 11/09/22 18:10 Urine Blood 3+ (Negative) H 11/09/22 18:10 Urine Nitrite Negative (Negative) 11/09/22 18:10 Urine Bilirubin Negative (Negative) 11/09/22 18:10 Urine Urobilinogen Negative (Negative) 11/09/22 18:10 Ur Leukocyte Esterase Negative (Negative) 11/09/22 18:10 Urine WBC (Auto) 5-10 /hpf (0-5) H 11/09/22 18:10 Urine RBC (Auto) 0-4 /hpf (0-4) 11/09/22 18:10 U Hyaline Cast (Auto) 1-5 /lpf (0-5) 11/09/22 18:10 U Epithel Cells (Auto) 5-10 /lpf (0-5) H 11/09/22 18:10 Urine Bacteria (Auto) 1+ (Negative) H 11/09/22 18:10 Urine Yeast Not Reportable 11/09/22 18:10 Urine Opiates Screen Neg (Neg) 11/09/22 18:10 Ur Methadone, Qual Neg (Neg) 11/09/22 18:10 Urine Barbiturates Neg (Neg) 11/09/22 18:10 Ur Phencyclidine (PCP) Neg (Neg) 11/09/22 18:10 U Amphetamin/Meth Scrn Pos (Neg) H 11/09/22 18:10 MDMA (Ecstasy) Screen Neg (Neg) 11/09/22 18:10 U Benzodiazepines Scrn Neg (Neg) 11/09/22 18:10 Ur Cocaine Metabolite Neg (Neg) 11/09/22 18:10 U Marijuana (THC) Screen Pos (Neg) H 11/09/22 18:10 SARS-CoV-2 (PCR) NEGATIVE (Negative) 11/09/22 21:45 Influenza Type A (PCR) Negative (Neg) 11/09/22 21:45 Influenza Type B (PCR) Negative (Neg) 11/09/22 21:45 RSV (RT-PCR) Negative (Neg) 11/09/22 21:45 Impressions Shoulder X-Ray 11/09/22 17:20 XR shoulder RT min 2V routine CLINICAL HISTORY: Right shoulder pain. COMPARISON STUDY: None. FINDINGS: Soft tissue swelling within the right shoulder. No acute fracture or dislocation. The right clavicle is intact. IMPRESSION: Soft tissue swelling within the right shoulder. No fracture or dislocation. ACT 112: Negative or not required by law. Electronically signed by: Richard Duvall M.D. 11/09/2022 6:29 PM Venous Doppler Study 11/09/22 17:20 Exam(s): US VENOUS RIGHT UPPER EXTREMITY EXAM: US Duplex Right Upper Extremity Veins CLINICAL HISTORY: Reason for exam: R arm pain and edema. TECHNIQUE: Real-time duplex ultrasound scan of the right upper extremity veins integrating B-mode two-dimensional vascular structure, Doppler spectral analysis, color flow Doppler imaging and compression. COMPARISON: None FINDINGS: Deep veins: Unremarkable. No DVT in the internal jugular, subclavian, axillary, or brachial veins. The veins demonstrate normal color flow, are normally compressible, with normal phasic flow and/or augmentation response. Superficial veins: Unremarkable. No thrombus in the visualized basilic and cephalic veins. Soft tissues: Edema in the subcutaneous soft tissues. There also appears to be muscular edema in the shoulder. IMPRESSION: No venous thrombosis in the right upper extremity. Soft tissue and muscular edema. Electronically signed by: Lilliam Arellano M.D. 11/09/22 21:50 PM Renal Ultrasound 11/10/22 10:20 US renal/blad retro comp CLINICAL HISTORY: john TECHNIQUE: Multiple sonographic real-time images of the kidneys and bladder were obtained. COMPARISON: None available at the time of this dictation. FINDINGS: The right kidney measures 11.8 cm in length, and the left kidney measures 11.6 cm in length. The kidney is minimally echogenic. No hydronephrosis is identified. No renal lesion is identified. Trace free fluid is seen. Kidney is minimally echogenic. No hydronephrosis is identified. No renal lesion is identified. No perinephric fluid collection is seen. The bladder is partially distended. Bilateral jets are seen. IMPRESSION: 1. Bilateral kidneys are minimally echogenic which may represent medical renal disease. 2. Trace free fluid is noted about the right kidney, nonspecific. ACT 112: Negative or not required by law. Electronically signed by: Misael Lucas M.D. 11/10/2022 11:48 AM Ribs w/Chest X-Ray 11/10/22 11:14 PA CHEST WITH BILATERAL RIB SERIES CLINICAL HISTORY: Bruising on the chest. FINDINGS: A PA chest radiograph with 8 additional views from a bilateral rib series is obtained. No prior studies are available for comparison at the time of dictation. The cardiomediastinal silhouette is unremarkable. The lungs and pleural spaces are clear. No pneumothorax is seen. There is no radiographic evidence of acute/displaced rib fracture on the bilateral rib series. The remainder of the bony thorax is grossly intact. IMPRESSION: 1. The lungs are clear. 2. There is no radiographic evidence of acute/displaced rib fracture seen on the bilateral rib series. ACT 112: Negative or not required by law. Electronically signed by: Sebastian Angelo M.D. 11/10/2022 11:59 AM Vascular Ultrasound 11/10/22 18:02 ULTRASOUND RIGHT UPPER EXTREMITY NONVASCULAR CLINICAL HISTORY: Cellulitis. Assess for abscess overlying the deltoid muscle. FINDINGS: Real-time grayscale and color flow sonography of the right upper extremity soft tissues is performed to assess for abscess. There is no sonographic evidence of abscess in the right upper extremity. Subcutaneous soft tissue edema is observed. IMPRESSION: Subcutaneous soft tissue edema overlying the deltoid muscle with no organized fluid collection to indicate abscess. Electronically signed by: Sebastian Angelo M.D. 11/10/2022 8:02 PM
[2022-11-11 11:36] LABS: Basophils # (auto) 0.04 K/uL (0-0.2); Basophils % (auto) 0.5 %; Eosinophils # (auto) 0.14 K/uL (0-0.50); Eosinophils % (auto) 1.9 %; Hematocrit (blood only) 39.2 % (42.0-52.0); Hemoglobin 13.4 g/dl (14.0-18.0); Immature Granulocytes # (auto) 0.02 K/uL (0.01-0.20); Immature Granulocytes % (auto) 0.3 %; Lymphocytes # (auto) 1.29 K/uL (1.2-3.4); Lymphocytes % (auto) 17.3 %; Mean Corpuscular Hemoglobin 29.5 pg (25.0-34.0); Mean Corpuscular Hgb Conc 34.2 g/dL (32.0-36.0); Mean Corpuscular Volume 86.3 fL (80.0-100.0); Mean Platelet Volume 10.6 fL (9.4-12.4); Monocytes % (auto) 6.7 %; Neutrophils # (auto) 5.45 K/uL (1.40-6.50); Neutrophils % (auto) 73.3 %; Platelet Count 154 K/uL (130-400); RDW Coefficient of Variation 12.8 % (11.5-14.5); RDW Standard Deviation 40.1 fL (36.4-46.3); Red Blood Count 4.54 M/uL (4.70-6.10); White Blood Count 7.44 K/ul (4.8-10.8)
[2022-11-11 11:48] LABS: BUN Creatinine Ratio 10.2 (10-20); Creatinine Clr Calc Pharmacy 55.7 ml/min; Est GFR (African American) 60.1 ml/min; Est GFR (Non-African American) 51.8 ml/min; Potassium 3.7 mmol/L (3.5-5.1)
[2022-11-11 12:02] LABS: Partial Thromboplastin Ratio 0.9; Partial Thromboplastin Time 24.4 Seconds (21.0-31.0); Prothrombin Time 10.7 Seconds (9.0-12.0)
[2022-11-11 12:10] LABS: Albumin Globulin Ratio 1.3 (0.9-2); Albumin Level 3.3 gm/dl (3.4-5.0); Bilirubin,Total 0.8 mg/dl (0.2-1.0); Globulin 2.6 gm/dl (2.5-4.0); Magnesium 2.4 mg/dl (1.7-2.4); Total Protein 5.9 gm/dl (6.0-8.3)
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
[2022-11-11 18:13] LABS: Calcium 8.3 mg/dl (8.5-10.1); Potassium 4.2 mmol/L (3.5-5.1)
[2022-11-11 18:26] LABS: Creatinine Clr Calc Pharmacy 58.7 ml/min; Est GFR (Non-African American) 55.2 ml/min
[2022-11-12] MEDS: LINEZOLID 600 MG/300 ML BAG IV SCH ×2 (04:05→17:51)
[2022-11-12] MEDS: PIPERACILLIN/TAZOBACTAM 3.375 GM in DEXTROSE 5% 100 ML IV SCH ×2 (05:13→13:46)
[2022-11-12] MEDS: HYDROmorphone INJ 1 MG/ML SYRINGE IV PRN ×2 (06:14→12:44)
[2022-11-12 06:55] LABS: Basophils # (auto) 0.06 K/uL (0-0.2); Basophils % (auto) 0.8 %; Eosinophils # (auto) 0.36 K/uL (0-0.50); Eosinophils % (auto) 4.5 %; Hemoglobin 13.5 g/dl (14.0-18.0); Immature Granulocytes # (auto) 0.12 K/uL (0.01-0.20); Immature Granulocytes % (auto) 1.5 %; Lymphocytes # (auto) 1.94 K/uL (1.2-3.4); Lymphocytes % (auto) 24.4 %; Mean Corpuscular Hemoglobin 29.7 pg (25.0-34.0); Mean Corpuscular Hgb Conc 34.6 g/dL (32.0-36.0); Mean Corpuscular Volume 85.7 fL (80.0-100.0); Mean Platelet Volume 10.5 fL (9.4-12.4); Monocytes # (auto) 0.62 K/uL (0.11-0.59); Monocytes % (auto) 7.8 %; Neutrophils # (auto) 4.85 K/uL (1.40-6.50); Platelet Count 195 K/uL (130-400); RDW Coefficient of Variation 12.5 % (11.5-14.5); RDW Standard Deviation 39.2 fL (36.4-46.3); Red Blood Count 4.55 M/uL (4.70-6.10); White Blood Count 7.95 K/ul (4.8-10.8)
[2022-11-12 07:25] LABS: BUN Creatinine Ratio 9.5 (10-20); Calcium 8.2 mg/dl (8.5-10.1); Creatinine Clr Calc Pharmacy 77.7 ml/min; Est GFR (Non-African American) 77.7 ml/min; Potassium 3.5 mmol/L (3.5-5.1)
[2022-11-12 07:33] LABS: Partial Thromboplastin Ratio 0.9; Partial Thromboplastin Time 24.3 Seconds (21.0-31.0); Prothrombin Time 10.3 Seconds (9.0-12.0)
[2022-11-12 07:49] LABS: Albumin Globulin Ratio 1.2 (0.9-2); Albumin Level 3.2 gm/dl (3.4-5.0); Bilirubin,Total 0.7 mg/dl (0.2-1.0); Globulin 2.7 gm/dl (2.5-4.0); Magnesium 1.9 mg/dl (1.7-2.4); Total Protein 5.9 gm/dl (6.0-8.3)
[2022-11-12] MEDS: NICOTINE 21 MG/24 HR TDSY TD SCH (09:58)
--- NOTE | 2022-11-12 10:27 | Nephrology Progress Note ---
Date of Service November 12, 2022 Assessment & Plan (1) Acute renal failure: Plan: Non-oliguric. Creatinine normalized. Volume status euvolemic. Clinical presentation consistent with prerenal and rhabdomyolysis. IVF stopped overnight. Electrolytes acceptable. Stable for discharge from nephrology perspective. Please check a renal profile within 1 week of discharge and arrange follow up with me in the nephrology clinic in 1-2 weeks. (2) Rhabdomyolysis: Plan: Improved. IVF stopped. (3) Substance abuse: Plan: Serologic testing for hepatitis B, C pending. (4) Transaminitis: Admission and Anticipated Discharge Date Admission Date: November 09, 2022 Subjective No acute events overnight. Notable improvement. Some persistent pain in shoulder and limited ROM. Jae is hopeful to be discharged today. Review of Systems Review of Systems: All systems reviewed & are unremarkable except as noted in HPI & below Physical Exam Constitutional: well developed and cooperative; no acute distress Eyes: + anicteric sclerae; no corneal abnormality ENMT: Mouth: no oral mucosal abnormality and oral mucous membranes not dry Neck: normal visual inspection and trachea midline Respiratory: normal respiratory effort Auscultation: lungs clear to auscultation bilaterally Cardiovascular: Rate/Rhythm: regular rate Heart Sounds: normal S1 and normal S2 Musculoskeletal: Extremities: no cyanosis and no clubbing Skin: normal turgor; no jaundice Neurologic: Motor/Sensory: no tremor and no asterixis Psychiatric: Orientation: alert and oriented x 3 Results & Data Vital Signs (Past 12 Hours) Vital Signs Temp Pulse Pulse Resp BP Pulse Ox O2 Del Method 11/12/22 07:13 36.7 C 45 L 14 126/81 98 Room Air 11/12/22 07:08 42 L 11/12/22 03:47 36.9 C 45 L 16 127/62 97 Room Air 11/12/22 01:05 77 11/11/22 23:33 36.8 C 42 L 18 129/85 98 Room Air Laboratory Results Laboratory Results - last 24 hr 11/11/22 11/11/22 11/11/22 11:12 11:12 11:12 WBC 7.44 RBC 4.54 L Hgb 13.4 L Hct 39.2 L MCV 86.3 MCH 29.5 MCHC 34.2 RDW Std Deviation 40.1 RDW Coeff of Raúl 12.8 Plt Count 154 MPV 10.6 Immature Gran % (Auto) 0.3 Neut % (Auto) 73.3 Lymph % (Auto) 17.3 Cedar % (Auto) 6.7 Eos % (Auto) 1.9 Baso % (Auto) 0.5 Neut # (Auto) 5.45 Lymph # (Auto) 1.29 Cedar # (Auto) 0.50 Eos # (Auto) 0.14 Baso # (Auto) 0.04 Immature Gran # (Auto) 0.02 PT 10.7 INR 1.0 APTT 24.4 PTT Ratio 0.9 Sodium 139 Potassium 3.7 Chloride 106 Carbon Dioxide 28 Anion Gap 5 BUN 18 Creatinine 1.76 H D Est Cr Clr Drug Dosing 55.7 Est GFR ( Amer) 60.1 Est GFR (Non-Af Amer) 51.8 BUN/Creatinine Ratio 10.2 Glucose 105 H Calcium 8.0 L Magnesium 2.4 Total Bilirubin 0.8 AST 846 H ALT 723 H Alkaline Phosphatase 41 Total Creatine Kinase 89387 H Total Protein 5.9 L Albumin 3.3 L Globulin 2.6 Albumin/Globulin Ratio 1.3 11/11/22 11/12/22 11/12/22 17:25 06:07 06:07 WBC 7.95 RBC 4.55 L Hgb 13.5 L Hct 39.0 L MCV 85.7 MCH 29.7 MCHC 34.6 RDW Std Deviation 39.2 RDW Coeff of Raúl 12.5 Plt Count 195 MPV 10.5 Immature Gran % (Auto) 1.5 Neut % (Auto) 61.0 Lymph % (Auto) 24.4 Cedar % (Auto) 7.8 Eos % (Auto) 4.5 Baso % (Auto) 0.8 Neut # (Auto) 4.85 Lymph # (Auto) 1.94 Cedar # (Auto) 0.62 H Eos # (Auto) 0.36 Baso # (Auto) 0.06 Immature Gran # (Auto) 0.12 PT 10.3 INR 1.0 APTT 24.3 PTT Ratio 0.9 Sodium 139 Potassium 4.2 Chloride 107 Carbon Dioxide 25 Anion Gap 7 BUN 15 Creatinine 1.67 H Est Cr Clr Drug Dosing 58.7 Est GFR ( Amer) 64.0 Est GFR (Non-Af Amer) 55.2 BUN/Creatinine Ratio 9.0 L Glucose 107 H Calcium 8.3 L Magnesium Total Bilirubin AST ALT Alkaline Phosphatase Total Creatine Kinase Total Protein Albumin Globulin Albumin/Globulin Ratio 11/12/22 06:07 WBC RBC Hgb Hct MCV MCH MCHC RDW Std Deviation RDW Coeff of Raúl Plt Count MPV Immature Gran % (Auto) Neut % (Auto) Lymph % (Auto) Cedar % (Auto) Eos % (Auto) Baso % (Auto) Neut # (Auto) Lymph # (Auto) Cedar # (Auto) Eos # (Auto) Baso # (Auto) Immature Gran # (Auto) PT INR APTT PTT Ratio Sodium 139 Potassium 3.5 Chloride 106 Carbon Dioxide 28 Anion Gap 5 BUN 12 Creatinine 1.26 D Est Cr Clr Drug Dosing 77.7 Est GFR ( Amer) 90.0 Est GFR (Non-Af Amer) 77.7 BUN/Creatinine Ratio 9.5 L Glucose 109 H Calcium 8.2 L Magnesium 1.9 Total Bilirubin 0.7 AST 645 H ALT 644 H Alkaline Phosphatase 41 Total Creatine Kinase 87816 H Total Protein 5.9 L Albumin 3.2 L Globulin 2.7 Albumin/Globulin Ratio 1.2 PG Care Time/CCT Total # of Minutes Spent Total Time Spent with Patient: Total time spent is greater than 50% in coordination of care (as documented) at patient's floor/unit and/or counseling patient: Coding Level of Care Code 43501 SUB INP/OBS CARE 3/50MIN Diagnoses Acute renal failure N17.9 Rhabdomyolysis M62.82 Substance abuse F19.10 Transaminitis R74.01
--- NOTE | 2022-11-12 12:05 | Hospitalist Progress Note ---
Date of Service November 12, 2022 Assessment & Plan (1) Acute renal failure: Plan: Presented with a creatinine of 3.2 on admission Down to normal with IV fluids Secondary to rhabdomyolysis Nephrology on board, signed off Retroperitoneal ultrasound was unremarkable Monitor BMP closely (2) Rhabdomyolysis: Plan: Nontraumatic rhabdomyolysis Secondary to polysubstance abuse CPK 79,000 on admission, now trended down to 12,000 Improving IV fluids at 80 mils an hour Monitor CPK daily Encourage p.o. fluid intake We will need CPK down lower prior to discharge (3) Substance abuse: Plan: Patient is an IV drug user Use multiple drugs Urine drug screen positive for marijuana, amphetamine Pain management will be challenging Reduce dose and frequency of IV Dilaudid (4) Edema of right upper extremity: Plan: Right upper extremity ultrasound showed diffuse swelling and no localized fluid collection. Repeat ultrasound showed no fluid collection The pain is better today Orthopedics signed off Procalcitonin level was elevated at 4 WBC count was elevated at 15 on admission now down to normal On IV linezolid. Discontinue Zosyn Patient has fresh skin mendiola of recent IV substance abuse on his right hand, raising the possibility of infection/abscess Pain management with IV Dilaudid (5) Transaminitis: Plan: Most likely secondary to rhabdomyolysis AST and ALT are trending down Monitor (6) Friction burn of skin: Plan: The 2 spots in his lower chest/upper abdomen are most likely from friction burn The patient says that he cannot remember very well but he was most likely sitting in a slouched over position and fell asleep or he could have been laying on his tummy for several hours. Rib x-rays ruled out rib fractures Patient can use heating pad or ice packs Admission and Anticipated Discharge Date Admission Date: November 09, 2022 Subjective Patient is feeling much better overall. He is able to move his shoulder and arm more freely today although still restricted by pain. The swelling is down significantly. Review of Systems Review of Systems: All systems reviewed & are unremarkable except as noted in Subjective Physical Exam Physical Exam: General: Awake, conversant Heart: S1, S2/regular rate and rhythm, no murmur rubs or gallops Lungs: Clear to auscultation bilaterally. Normal effort. 2 red painful spots on both sides in the upper abdomen/lower chest against the lower ribs. Abdomen: Soft/nontender/nondistended. No hepatosplenomegaly Extremities: No clubbing/cyanosis. No edema. Right upper extremity is less swollen today. The swelling near his deltoid muscle is improved as well. Tenderness is improved. He is able to move his right elbow without any restrictions. Right shoulder movement is less restricted by pain today. Behavior: Appropriate, cooperative Results & Data Results & Data Vital Signs (Past 12 Hours) Vital Signs Temp Pulse Pulse Resp BP Pulse Ox O2 Del Method 11/12/22 11:16 36.7 C 55 L 14 112/72 98 Room Air 11/12/22 07:13 36.7 C 45 L 14 126/81 98 Room Air 11/12/22 07:08 42 L 11/12/22 03:47 36.9 C 45 L 16 127/62 97 Room Air 11/12/22 01:05 77 Laboratory Results Abnormal lab results 11/09/22 11/11/22 11/12/22 Range/Units 20:50 17:25 06:07 RBC 4.55 L (4.70-6.10) M/uL Hgb 13.5 L (14.0-18.0) g/dl Hct 39.0 L (42.0-52.0) % [place] # (Auto) 0.62 H (0.11-0.59) K/uL Creatinine 1.67 H (0.6-1.4) mg/dl BUN/Creatinine Ratio 9.0 L (10-20) Glucose 107 H (70-99(Fasting)) mg/dl Calcium 8.3 L (8.5-10.1) mg/dl AST (13-39) U/L ALT (7-52) U/L Total Creatine Kinase (30-223) U/L Total Protein (6.0-8.3) gm/dl Albumin (3.4-5.0) gm/dl Hepatitis C Ab (EIA) REACTIVE A (NON-REACTIVE) Hep C Ab Signal/Cutoff >11.00 H (<1.00) 11/12/22 Range/Units 06:07 RBC (4.70-6.10) M/uL Hgb (14.0-18.0) g/dl Hct (42.0-52.0) % [place] # (Auto) (0.11-0.59) K/uL Creatinine (0.6-1.4) mg/dl BUN/Creatinine Ratio 9.5 L (10-20) Glucose 109 H (70-99(Fasting)) mg/dl Calcium 8.2 L (8.5-10.1) mg/dl AST 645 H (13-39) U/L ALT 644 H (7-52) U/L Total Creatine Kinase 54733 H (30-223) U/L Total Protein 5.9 L (6.0-8.3) gm/dl Albumin 3.2 L (3.4-5.0) gm/dl Hepatitis C Ab (EIA) (NON-REACTIVE) Hep C Ab Signal/Cutoff (<1.00) PG Care Time/CCT Total # of Minutes Spent Total Time Spent: 35 Total Time Spent with Patient: I spent 35 minutes in the care of this patient. The time was spent in talking to the patient, nurse, care management team, reviewing the chart, formulating plan and placing the orders accordingly. Coding Level of Care Code 09295 SUB INP/OBS CARE 2/35MIN Diagnoses Acute renal failure N17.9 Rhabdomyolysis M62.82 Substance abuse F19.10 Edema of right upper extremity R60.0 Transaminitis R74.01 Friction burn of skin T30.0
[2022-11-12 13:23] LABS: HBSAG NON-REACTIVE (NON-REACTIVE); Hepatitis A Antibody IgM NON-REACTIVE (NON-REACTIVE); Hepatitis B Core Antibody IgM NON-REACTIVE (NON-REACTIVE)
[2022-11-12] MEDS ORDERED: HYDROmorphone INJ 1 MG/ML SYRINGE IV PRN (14:54)
[2022-11-12] MEDS: SODIUM CHLORIDE 0.9% 1000ML 1,000 ML IV SCH (14:58)
[2022-11-12 15:07] LABS: Hepatitis C Vira RNA (Log) PCR 6.15 Log IU/mL (NOT DETECTED); Hepatitis C Viral RNA by PCR 1420000 IU/mL (NOT DETECTED)
[2022-11-12] MEDS: FIRST - Mouthwash BLM 119 ML PO SCH (16:55)
[2022-11-12] MEDS ORDERED: LINEZOLID 600 MG TAB PO SCH (22:00)
--- NOTE | 2022-11-12 22:15 | Communication Note ---
Date of Service: November 12, 2022 Received notification from nursing stating that the IV team is not able to gain IV access even with ultrasound guidance due to history of IV drug use. For this reason, switched his IV linezolid to p.o. for tomorrow morning until IV access could be reestablished possibly with a PICC line depending on IV team availability. Additionally encouraged patient to consume approximately 600 cc (IV fluid he would have received overnight) of fluid overnight orally given his rhabdo. Do not feel that a central line was needed in order for the pronation to get this 1 medication which would have been the only modality able to to be given overnight logistically speaking. Due to possible joint infection, IV medication is certainly more indicated in this instance but progress should not be inhibited by 1 or 2 doses of oral linezolid.
[2022-11-13] MEDS: SODIUM CHLORIDE 0.9% 1000ML 1,000 ML IV SCH (04:51)
[2022-11-13] MEDS ORDERED: LINEZOLID 600 MG TAB PO SCH (05:00)
[2022-11-13] MEDS: LINEZOLID 600 MG/300 ML BAG IV SCH (05:54)
[2022-11-13] MEDS: FIRST - Mouthwash BLM 119 ML PO SCH ×3 (08:56→16:12)
[2022-11-13 09:19] LABS: BUN Creatinine Ratio 8.7 (10-20); Calcium 8.8 mg/dl (8.5-10.1); Creatinine Clr Calc Pharmacy 95.1 ml/min; Est GFR (African American) 114.8 ml/min; Est GFR (Non-African American) 99.1 ml/min; Potassium 3.9 mmol/L (3.5-5.1)
[2022-11-13] MEDS: NICOTINE 21 MG/24 HR TDSY TD SCH (09:29)
[2022-11-13 15:49] LABS: Amphetamine Urine, Confirm 3940 ng/mL (<250); Marijuana Quant, GCMS Urine 28 ng/mL (<5); Methamphetamine, Ur Confirm 8600 ng/mL (<250)
--- NOTE | 2022-11-13 17:13 | Discharge Summary ---
Date of Service November 13, 2022 Admission HPI Per Admitting Provider The patient is a 27-year-old male with past medical history significant for anxiety, ADD, and a skin abscess from a previous IVDA injection site. He presents to the emergency department with complaint of right shoulder and upper arm swelling, and generalized myalgias as noted above. He also reports that while on spring he was using opiates, and then later was using speed. While in [place], he reports that he woke up in an unknown hotel room feeling confused and extremely fatigued and achy. He was ultimately able to make his way back to [place] yesterday. After realizing that his right arm was swollen, and he had a new rash on his stomach, he decided coming to the emergency department for assessment. Admission Exam Per Admitting Provider The patient is awake, alert and oriented 3, well developed and well nourished, normocephalic and atraumatic, lying in bed and in no acute distress. HEENT--PERRL, EOMI, multiple areas of ulcerations along right side of tongue, and along lips and buccal mucosa Neck--supple. No JVD. No bruits. Thyroid normal, trachea midline, no adenopathy. Heart--normal S1 and S2. No murmurs, rubs or gallops. Lungs--clear bilaterally, no respiratory distress, no accessory muscle use. Abdomen--normal bowel sounds and soft. Nontender. Nondistended, no hernias or masses, no organomegaly. Extremities--no cyanosis or clubbing. No edema. There are good distal pulses b/l. Dermatologic--fresh injection site is noted near the right AC Neurologic--cranial nerves II through XII grossly intact. Rheumatologic--painfully decreased range of motion with swelling noted from right shoulder down to mid forearm Psychiatric--normal affect. Principal Diagnosis Acute kidney injury, nontraumatic rhabdomyolysis, polysubstance abuse, right upper extremity edema Discharge Exam General: Awake, conversant Heart: S1, S2/regular rate and rhythm, no murmur rubs or gallops Lungs: Clear to auscultation bilaterally. Normal effort. 2 red painful spots on both sides in the upper abdomen/lower chest against the lower ribs. Abdomen: Soft/nontender/nondistended. No hepatosplenomegaly Extremities: No clubbing/cyanosis. No edema. Right upper extremity is much less swollen today. The swelling near his deltoid muscle is much improved as well. No tenderness anymore. He is able to move his right elbow without any restrictions. Right shoulder movement is much less restricted by pain today. Behavior: Appropriate, cooperative Discharge Data Allergies Allergy/AdvReac Type Severity Reaction Status Date / Time hydrocodone Allergy Intermediate rash Verified 11/09/22 20:04 acetaminophen Allergy Unknown PER Verified 11/09/22 20:04 PT--DOESN'T TAKE D/T SIDE EFFECT LIVER CAUSING ISSUE oxycodone Allergy Unknown heat Verified 11/09/22 20:04 flashes Consultations 11/09/22 23:06 ED Decision to Admit Stat 11/10/22 01:29 Consult Nephrology Routine 11/10/22 11:17 Consult Orthopedic Surgery Routine Ordered Studies 11/09/22 17:20 US venous doppler UE RT Stat 11/10/22 10:20 US Renal Bladder [US renal/blad retro comp] Routine 11/10/22 18:02 US extremity non-vascular ltd Urgent Hospital Course (1) Acute renal failure: Presented with a creatinine of 3.2 on admission Down to normal with IV fluids Secondary to rhabdomyolysis Nephrology on board, signed off Retroperitoneal ultrasound was unremarkable Patient will need an outpatient nephrology appointment (2) Rhabdomyolysis: Nontraumatic rhabdomyolysis Secondary to polysubstance abuse CPK 79,000 on admission, now trended down to 6000 range Improving without IV fluids Encourage p.o. fluid intake (3) Substance abuse: Patient is an IV drug user Use multiple drugs Urine drug screen positive for marijuana, amphetamine Encouraged to quit (4) Edema of right upper extremity: Right upper extremity ultrasound showed diffuse swelling and no localized fluid collection. Repeat ultrasound showed no fluid collection Orthopedics signed off WBC count was elevated at 15 on admission now down to normal Was treated with IV antibiotics for 4 days. Patient has fresh skin mendiola of recent IV substance abuse on his right hand, raising the possibility of infection/abscess No more signs of infection. No redness. The swelling was most likely related to lying on the right arm for several hours (5) Transaminitis: Most likely secondary to rhabdomyolysis AST and ALT trended down (6) Friction burn of skin: The 2 spots in his lower chest/upper abdomen are most likely from friction burn The patient says that he cannot remember very well but he was most likely sitting in a slouched over position and fell asleep or he could have been laying on his tummy for several hours. Rib x-rays ruled out rib fractures Patient can use heating pad or ice packs Total Time Total Time Spent Total Time Spent (In Minutes): 35 Discharge Plan Discharge Items Patient Disposition: Home - Self-Care Reason For Visit: ACUTE RENAL FAILURE,RHABDO Discharge Diagnosis: Acute kidney injury, Rhabdomyolysis Activity: Resume your previous activity Non-emergency contact: Primary Care Provider Call non-emergency contact if: your symptoms worsen Follow-up/Referrals: Jerzy Bishop DO [Physician] - 11/16/22 8:40 am Carley Domingo PA-C [Physician Sheet Taker] - 11/18/22 2:00 pm (Please arrive 15 minutes prior to appointment time) Yefri Virk DO [Physician] - 12/15/22 2:00 pm (Please arrive 15 minutes prior to appointment time) PCP,NO [Primary Care Provider] - Diet: Regular Addtl Attending Provider Instructions: Advised to follow-up with PCP in 1 week Advised to follow-up with electric tape slitter in 1 week Advised to quit using illicit substances for recreational purposes Pending Studies at Discharge: No Stand-Alone Forms: [employer], Work/School Release, Smoking Cessation Medications and DC Order Prescriptions: Continued clonazepam 1 mg tablet 1 mg PO BID PRN (Reason: Anxiety) alprazolam 0.25 mg tablet 0.25 mg PO HS PRN (Reason: Sleep) dextroamphetamine-amphetamine 20 mg tablet 20 mg PO TID Medical Marijuana 1 dose inhalation DIRECTED PRN (Reason: NEEDED PER PT.) Rx Instructions: PER PT VAPS. Discharge Orders: Discharge Order (Routine); Ordered 11/13/22 Ordered By: Carlos Kathleen Admission Data Admit Date/Time: 11/09/22 22:48 Attending Provider: Carlos Kathleen Admit Provider: Espinoza Andres Primary Care Provider: PCP,NO Other Providers: Espinoza Andres ; Jerzy Bishop ; Marcin Maloney Coding Level of Care Code 69221 INP/OBS DISCH >30 MIN Diagnoses Acute renal failure N17.9 Rhabdomyolysis M62.82 Substance abuse F19.10 Edema of right upper extremity R60.0 Transaminitis R74.01 Friction burn of skin T30.0
== END 2022-11-13 18:14 | disposition home or self-care (01) | DRG 557 ==
LOC: ED 17:07 → SUATTDRO 22:48 → 2N 22:48

== ENCOUNTER 2024-08-01 23:16 | Inpatient (IN) ==
[2024-08-02 00:21] LABS: Basophils # (auto) 0.07 K/uL (0.00-0.20); Basophils % (auto) 0.4 %; Eosinophils # (auto) 0.17 K/uL (0.00-0.50); Hematocrit (blood only) 46.1 % (42.0-52.0); Hemoglobin 15.2 g/dl (14.0-18.0); Immature Granulocytes # (auto) 0.06 K/uL (0.01-0.20); Immature Granulocytes % (auto) 0.4 %; Lymphocytes # (auto) 1.66 K/uL (1.20-3.40); Mean Corpuscular Volume 87.8 fL (80.0-100.0); Mean Platelet Volume 10.4 fL (9.4-12.4); Monocytes # (auto) 0.91 K/uL (0.11-0.59); Monocytes % (auto) 5.5 %; Neutrophils # (auto) 13.75 K/uL (1.40-6.50); Neutrophils % (auto) 82.7 %; Platelet Count 320 K/uL (130-400); RDW Coefficient of Variation 12.9 % (11.5-14.5); RDW Standard Deviation 41.8 fL (36.4-46.3); Red Blood Count 5.25 M/uL (4.70-6.10); White Blood Count 16.62 K/ul (4.8-10.8)
[2024-08-02 00:37] LABS: Alanine Aminotransferase 14 U/L (7-52); Albumin Globulin Ratio 1.3 (0.9-2); Albumin Level 4.9 gm/dl (3.4-5.0); Alkaline Phosphatase 46 U/L (34-104); Anion Gap 9 (3-11); Aspartate Aminotransferase 20 U/L (13-39); BUN Creatinine Ratio 15.9 (10-20); Bilirubin,Total 0.8 mg/dl (0.2-1.0); Blood Urea Nitrogen 13 mg/dl (6-23); Calcium 10.1 mg/dl (8.6-10.3); Carbon Dioxide 28 mmol/L (21-32); Chloride 103 mmol/L (98-107); Globulin 3.8 gm/dl (2.5-4.0); Glucose 85 mg/dl (70-99(Fasting)); Potassium 3.6 mmol/L (3.5-5.1); Sodium 140 mmol/L (136-145); Total Protein 8.7 gm/dl (6.0-8.3)
[2024-08-02 00:44] LABS: Acetaminophen < 3 ug/ml (10-30); Salicylate < 3.0 mg/dl (3.0-30)
[2024-08-02 00:51] LABS: Thyroid Stimulating Hormone 0.808 uIu/ml (0.300-4.500)
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
[2024-08-02] MEDS: cefTRIAXone SODIUM 2,000 MG/50 ML BAG IV STA (01:04)
[2024-08-02] MEDS: PIPERACILLIN/TAZOBACTAM 4.5 GM/100 ML BAG IV ONE (01:24)
--- NOTE | 2024-08-02 02:52 | XRay Report ---
EXAM: XR foot LT min 3V routine CLINICAL HISTORY: FALL REDNESS AND SWELLING TO LT ANKLE/FOOT BEST POSSIBLE DUE TO PT STATUS [facility] TECHNIQUE: X-ray images of the left foot were obtained in anteroposterior (AP), lateral, and oblique projections. COMPARISON: No prior studies are available for comparison. FINDINGS: Bone Structure: Bone structure is normal and aligned. No evidence of fracture or dislocation. No osseous lesions or abnormalities were identified. Joint Spaces: Joint spaces are normal. No evidence of joint effusion or subluxation. Soft Tissues: Soft tissues appear normal and unremarkable. No soft tissue swelling, calcifications, or foreign bodies were noted. Additional Findings: No signs of osteoarthritis, bone spurs, lytic or sclerotic lesions. IMPRESSION: 1. Unremarkable X-ray of the left foot. 2. No evidence of acute fracture, dislocation, or significant soft tissue abnormalities. Disclaimer: A subtle bone abnormality or fracture may not be readily apparent on X-rays, thus clinical correlation and further imaging including follow-up CT, MRI, or follow-up X-rays are advised as needed. Electronically signed by Mariela Meyer 08-02-2024 02:52 AM
--- NOTE | 2024-08-02 02:55 | XRay Report ---
EXAM: XR ankle LT min 3V routine CLINICAL HISTORY: FALL REDNESS AND SWELLING TO LT ANKLE/FOOT BEST POSSIBLE DUE TO PT STATUS [facility] TECHNIQUE: X-ray images of the left ankle were obtained in anteroposterior (AP), lateral, and mortise projections. COMPARISON: No prior studies are available for comparison. FINDINGS: Bone Structure: Bone structure is normal and aligned. No evidence of fracture or dislocation. No osseous lesions or abnormalities were identified. Joint Spaces: Joint spaces are normal. No evidence of joint effusion or subluxation. Soft Tissues: Soft tissues appear normal and unremarkable. No soft tissue swelling, calcifications, or foreign bodies were noted. Additional Findings: No signs of osteoarthritis, bone spurs, lytic or sclerotic lesions. IMPRESSION: 1. Unremarkable X-ray of the left ankle. 2. No evidence of acute fracture, dislocation, or significant soft tissue abnormalities. Disclaimer: A subtle bone abnormality or fracture may not be readily apparent on X-rays, thus clinical correlation and further imaging including follow-up CT, MRI, or follow-up X-rays are advised as needed. Electronically signed by Mariela Meyer 08-02-2024 02:55 AM
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
--- NOTE | 2024-08-02 03:15 | Ultrasound Report ---
EXAM: US venous doppler LE LT CLINICAL HISTORY: HX: no previous. Left ankle is red and swollen. Per patient, ALE is area of previous I.V. drug use. portable eval, patient is on 1:1 observation due to erratic behavior. TECH NOTES: no obvious dvt LT pop v and calf veins. Edema left distal calf. Patient refused to remove pants, unable to eval to CFV and SFV. INC FINDING: fluid collection medial left ankle zaida 3.5 x 0.4 x 1.8 cm, appears to surround ligaments. TECHNIQUE: Ultrasound examination of left lower extremity veins was performed in real-time and duplex. One or more of the following were performed- spectral analysis, resistive index, waveform analysis, and pulsed Doppler. COMPARISON: None. FINDINGS: Normal phasic, non-pulsatile and spontaneous flow is noted in left popliteal vein. Normal color flow on Doppler seen in left popliteal vein, anterior tibial, posterior tibial, and peroneal veins. No sonographic evidence of acute deep vein thrombosis (DVT) is detected in these visualized veins of lower extremity. Left common femoral and superficial femoral vein was not performed, as patient was not willing to expose area. Compression and Augmentation: Normal compressibility of left popliteal vein, and posterior tibial vein, on visualized images. Additional Findings: The cystic area is identified at left medial aspect of foot measuring 3.5 x 0.4 x 1.8 cm, Likely representing a collection. Soft tissue edema in the left distal calf. IMPRESSION: 1. No sonographic evidence of acute DVT was detected in the visualized veins (the left popliteal vein, anterior tibial, posterior tibial, and peroneal veins). 2. Left common femoral and superficial femoral veins were not evaluated( as the patient was not willing to expose the area). 3. Cystic area is identified left medial aspect of the foot, likely representing collection. 4. Soft tissue edema in the left distal calf. Disclaimer: DVT could be missed early in the disease when clot burden is minimal. For patients with moderate and high pretest probability of DVT and negative ultrasound, the [employer] clinical guidelines recommend testing with a D-dimer assay or repeat ultrasound in 5-7 days. If symptoms worsen, the Society of radiologists in ultrasound recommends repeating ultrasound even earlier. Electronically signed by Mariela Meyer 08-02-2024 03:15 AM
[2024-08-02] MEDS ORDERED: VANCOMYCIN CONSULT ACTIVE PRN (03:30)
[2024-08-02] MEDS: SODIUM CHLORIDE 0.9% 1,000 ML IV ONE (03:47)
[2024-08-02] MEDS: VANCOMYCIN HCL 1,250 MG in SODIUM CHLORIDE 0.9% 250 ML IV STA (04:19)
[2024-08-02 04:25] LABS: BUN Creatinine Ratio 17.4 (10-20); Calcium 9.3 mg/dl (8.6-10.3); Creatinine Clr Calc Pharmacy 120.7 ml/min; Potassium 3.7 mmol/L (3.5-5.1)
[2024-08-02 04:27] LABS: Basophils # (auto) 0.08 K/uL (0.00-0.20); Basophils % (auto) 0.6 %; Eosinophils # (auto) 0.26 K/uL (0.00-0.50); Eosinophils % (auto) 1.9 %; Hematocrit (blood only) 39.6 % (42.0-52.0); Hemoglobin 13.4 g/dl (14.0-18.0); Immature Granulocytes # (auto) 0.06 K/uL (0.01-0.20); Immature Granulocytes % (auto) 0.4 %; Lymphocytes % (auto) 17.9 %; Mean Corpuscular Hemoglobin 29.6 pg (25.0-34.0); Mean Corpuscular Hgb Conc 33.8 g/dL (32.0-36.0); Mean Corpuscular Volume 87.4 fL (80.0-100.0); Mean Platelet Volume 10.5 fL (9.4-12.4); Monocytes # (auto) 0.89 K/uL (0.11-0.59); Monocytes % (auto) 6.6 %; Neutrophils # (auto) 9.72 K/uL (1.40-6.50); Neutrophils % (auto) 72.6 %; Platelet Count 265 K/uL (130-400); RDW Coefficient of Variation 12.9 % (11.5-14.5); RDW Standard Deviation 41.2 fL (36.4-46.3); Red Blood Count 4.53 M/uL (4.70-6.10); White Blood Count 13.41 K/ul (4.8-10.8)
[2024-08-02] MEDS: PIPERACILLIN/TAZOBACTAM 4.5 GM/100 ML BAG IV SCH (06:30)
--- NOTE | 2024-08-02 06:38 | Billing Data ---
Date of Service August 02, 2024 Coding Level of Care Code 25385 INT INP/OBS CARE
--- NOTE | 2024-08-02 07:32 | Pharmacy Report ---
Pharmacy PK ABX Note - Date of Service August 02, 2024 - Assessment and Plan Assessment * 29 year old M receiving pip/tazo and vancomycin for treatment of cellulitis and ?abscess of foot. Possible prior self injection(s) into foot * PMH: current IVDA, HepC (no treatment), and hx acute renal failure * Pertinent microbiologic data includes: blood cultures x2 pending Plan Vancomycin * Loading dose: 1250 mg IV x 1 * Maintenance dose: 1250 mg IV every 12 hours * Target AUC/TAYLA of 400-600 mg/L.hr * Random level ordered for 12/5 AM Pharmacy will continue to follow and will adjust dose/frequency as necessary. Thank you. Pharmacy has transitioned to AUC monitoring for vancomycin. AUC/TAYLA is the preferred PK/PD target and is associated with decreased risk of nephrotoxicity compared to traditional trough targets.
[2024-08-02 07:40] LABS: Appearance Urine Clear (Clear); Bacteria Urine Automated None Seen (None Seen); Bilirubin Urine Negative (Negative); Blood Urine Negative (Negative); Cast Urine Automated 0-2 /lpf (0-2); Color Urine Yellow; Epithelial Cell Urine Auto 0-2 /hpf (0-2); Glucose Urine UA Negative (Negative); Ketones Urine Trace (Negative); Leukocyte Esterase Urine Negative (Negative); Nitrite Urine Negative (Negative); Protein Urine Trace (Negative); RBC Urine Automated 0-2 /hpf (0-2); Specific Gravity Urine 1.036 (1.000-1.030); Urobilinogen Urine Negative (Negative); WBC Urine Automated 0-5 /hpf (0-5)
[2024-08-02 08:08] LABS: Amphetamines+Metham, Urine Pos (Neg); Barbiturates, Urine Neg (Neg); Benzodiazepine, Urine Neg (Neg); Cocaine, Urine Neg (Neg); Fentanyl, Urine Pos (Neg); MDMA (Ecstacy), Urine Pos (Neg); Marijuana, Urine Pos (Neg); Methadone, Urine Neg (Neg); Opiate, Urine Neg (Neg); Phencyclidine, Urine Neg (Neg)
--- NOTE | 2024-08-02 09:55 | Electrocardiogram Report ---
Test Reason : Blood Pressure : */* mmHG Vent. Rate : 85 BPM Atrial Rate : 85 BPM P-R Int : 146 ms QRS Dur : 92 ms QT Int : 372 ms P-R-T Axes : 64 85 62 degrees QTcB Int : 442 ms Normal sinus rhythm with sinus arrhythmia Normal ECG No previous ECGs available Confirmed by Trip Pereyra ([id number]) on 08/02/2024 9:55:26 AM Referred By: REFERRED SELF Confirmed By: Trip Pereyra
[2024-08-02] MEDS: VANCOMYCIN HCL 1,250 MG in SODIUM CHLORIDE 0.9% 250 ML IV SCH (10:35)
--- NOTE | 2024-08-02 10:39 | Hospitalist Progress Note ---
Date of Service August 02, 2024 Assessment & Plan (1) Cellulitis of foot: Plan: Presented via EMS due to Toxic encephalopathy with AMS in the setting of suspected OD from unknown drug, and left foot pain - Leukocytosis of 16.62 on arrival, afebrile - Left foot and ankle x-rays unremarkable - Venous Doppler negative for DVT but does note fluid collection of medial left foot - Blood cultures pending - Ortho consulted for possible I&D of fluid collection - Continue vancomycin and Zosyn given history of IV drug use and unknown if he injected into his foot (2) Drug overdose: Plan: Patient was found in [employer] [facility] [employer] [facility], reportedly removing his clothes. Presented with AMS and unable to provide clear history as to what he took - reports consuming a "gelatin" but no other specifics - EKG with NSR - UA unremarkable - Toxicology screen positive for fentanyl, amphetamine, MDMA, marijuana. Reports last IV drug use was ~4 days prior to admission - Continue telemetry monitoring Updated by RN that patient is refusing to eat or drink due to "taoist reasons" and believes if he does not eat or drink he will be "released of sins" - Continue to encourage PO intake - No documented psych history or evals noted in chart - Denies SI, no ideation of self harm -- however, lack of judgement / flight of ideas at play as a hunger strike goes against not wanting to self harm - Low threshold for psych involvement if this continues (3) Hepatitis C infection: Plan: History of Hep C; no documentation of treatment received - Patient states he did complete 40 days worth of treatment through a tertiary center - Repeat Hep C RNA pending Plan VTE Prophylaxis: Low risk ambulation CODE STATUS: Full code Admission and Anticipated Discharge Date Admission Date: August 02, 2024 Subjective Patient seen and evaluated at bedside. He is fatigued, but wakes up to voice and responds appropriately. He does not recall the events of last night in detail. He does report that he does not know what substance he took last night, but it was "gelatin." He reports his last IV drug use was about 4 days ago, but does not report what substance it was. He denies any acute complaints at this time. He denies pain in his left foot currently. He reports "weird dreams" overnight. Denies chest pain, shortness of breath, headache, abdominal pain, nausea, diarrhea or constipation, urinary symptoms, or lightheadedness. Physical Exam Physical Exam: General: No acute distress, nondiaphoretic, well-developed, well-nourished. Cardiac: Regular rate and rhythm without murmurs gallops or rubs. Pulm: Clear to auscultation bilaterally without wheezes, rales or rhonchi. No respiratory distress. 98% on room air. Abdominal: Soft, nontender, nondistended. Bowel sounds present. Neuro: A&O x3. No focal neurological deficits. Extremities: Left foot and ankle erythematous and swollen, with area of increased swelling around medial aspect of left foot. Nontender to touch. Able to wiggle toes. Cap refill <3 seconds. Distal pulses present. 2 small circular scabbed areas around left foot. Results & Data Results & Data Vital Signs (Past 12 Hours) Vital Signs Temp Pulse Pulse Resp BP BP Pulse Ox 08/02/24 07:39 53 L 18 109/74 98 08/02/24 06:58 64 08/02/24 04:17 68 08/02/24 04:00 69 17 124/78 100 08/02/24 04:00 08/02/24 02:17 86 20 121/86 96 08/01/24 23:29 98 F 84 19 151/108 H 98 08/01/24 23:29 98 F 84 19 151/118 H 98 08/01/24 23:28 98 Pulse Ox O2 Del Method O2 Del Method 08/02/24 07:39 Room Air 08/02/24 06:58 08/02/24 04:17 08/02/24 04:00 Room Air 08/02/24 04:00 100 Room Air 08/02/24 02:17 Room Air 08/01/24 23:29 Room Air 08/01/24 23:29 Room Air 08/01/24 23:28 Room Air Laboratory Results Reviewed CBC Reviewed chemistries Reviewed toxicology Reviewed UA PG Care Time/CCT Total # of Minutes Spent Total Time Spent with Patient: Total time spent is greater than 50% in coordination of care (as documented) at patient's floor/unit and/or counseling patient: Coding Level of Care Code 48162 SUB INP/OBS CARE 2/35MIN Diagnoses Cellulitis of foot L03.119 Drug overdose T50.901A Hepatitis C infection B19.20
[2024-08-02] MEDS ORDERED: VANCOMYCIN HCL 1,000 MG/270 ML BAG IV SCH (12:00)
[2024-08-02 12:40] LABS: C Reactive Protein 4.13 mg/dl (0-0.5)
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
[2024-08-02 16:30] LABS: Appearance Synovial Fluid Turbid; Color Synovial Fluid Pale Yellow; Mononuclear WBC Synovial 3.7 %; Polynuclear WBC Synovial 96.3 %; RBC Synovial Fluid Auto 4000 /uL; Source Synovial Fluid Other; WBC Synovial Fluid Auto 68765 /ul (0-200)
--- NOTE | 2024-08-03 07:58 | Orthopedic Progress Note ---
Date of Service August 03, 2024 Assessment & Plan (1) Cellulitis of foot, left: Plan: 29-year-old male IV drug user will with left ankle/foot cellulitis. He did have some fluid collection in there and we drained that and it does not look like it is recurred at this point. His cellulitis is improving. He has made marked improvement since admission. Cultures are still pending. Plan: At this point the patient is improved significantly. There is no signs of recurrence of the fluid pocket. Continue the IV antibiotics probably for another 24 hours. He continues to make improvements he can probably be discharged on p.o. antibiotics. On the low concern about his compliance so I think we want to keep him in the hospital longer than shorter. There is no surgical indication at this point. Any orthopedic questions can direct me [phone]. (2) Drug overdose: (3) Hepatitis C infection: (4) Substance abuse: Admission and Anticipated Discharge Date Admission Date: August 02, 2024 Subjective 29-year-old male with history of significant IV drug abuse admitted with left ankle cellulitis. We did drain some fluid off this yesterday. He is feeling much better today. Pain is less. Feels like the antibiotics are working. No new complaints. Physical Exam Physical Exam: Physical examination of the ankle reveals the swelling to be markedly improved. I do not detect any fluid oh or abscess areas. The cellulitis is improved. He is much less tender to palpate and can dorsiflex and plantarflex his foot appropriately. He is neurologically intact. Results & Data Vital Signs (Past 12 Hours) Vital Signs Temp Pulse Pulse Resp BP Pulse Ox O2 Del Method 08/03/24 07:30 56 L 08/03/24 03:00 36.3 C L 48 L 14 105/67 99 Room Air 08/02/24 23:00 36.6 C 57 L 14 126/69 96 Room Air 08/02/24 21:44 47 L Laboratory Results Fluid analysis from the aspirate reveals 68,000 white cells with 96% polys. Gram stain is negative for organisms. Many WBCs. Cultures are pending.
--- NOTE | 2024-08-03 08:59 | Hospitalist Progress Note ---
Date of Service August 03, 2024 Assessment & Plan (1) Cellulitis of foot: Plan: Presented via EMS due to Toxic encephalopathy with AMS in the setting of suspected OD from unknown drug, and left foot pain - Leukocytosis of 16.62 on arrival, afebrile - Left foot and ankle x-rays unremarkable - Venous Doppler negative for DVT but does note fluid collection of medial left foot - Blood cultures negative x 24 hours - Ortho consulted > Fluid collection aspirated 08/02 with fluid sent for gram stain/cultures, cell count with diff > Continue IV antibiotics for another 24 hours given concern about his compliance, then discharged on oral antibiotics - Continue vancomycin and Zosyn given history of IV drug use and unknown if he injected into his foot. Recommend at least another 24 hours of IV antibiotics due to concern about outpatient compliance (2) Delmi: Plan: Presents in manic and psychotic state, and expresses delusional thoughts, grandiose thinking about spirituality, paranoid thoughts regarding the government and people "out to get" him, high pain threshold, and disorganized speech - Patient is refusing to eat or drink due to "christian reasons" and believes if he does not eat or drink he will be "released of sins." Continue to encourage PO intake - No documented psych history or evals noted in chart - Denies SI, no ideation of self harm -- however, lack of judgement / delusions at play as a hunger strike goes against not wanting to self harm - History of visual and auditory hallucinations; most recently 2 days prior to hospitalization per patient - Psychiatry consulted, patient agreeable > Patient is manic and NOT allowed to sign out AMA. Elopement precautions in place and 1-1 sitter ordered for outside of patient's room > Scheduled Lorazepam 2 mg HS, PRN Lorazepam Q6H for anxiety > Haldol 5 mg IM PRN for agitation - 302 involuntary psychiatric hold ordered evening of 08/03. Plan for involuntary 303 via psych inpatient unit when medically stable (3) Drug overdose: Plan: Patient was found in [employer] [facility] [employer] building, reportedly removing his clothes. Presented with AMS and unable to provide clear history as to what he took - reports consuming a "gelatin" but no other specifics - EKG with NSR - UA unremarkable - Toxicology screen positive for fentanyl, amphetamine, MDMA, marijuana. Reports last IV drug use was ~4 days prior to admission - Continue telemetry monitoring (4) Hepatitis C infection: Plan: History of Hep C; no documentation of treatment received - Patient states he did complete 40 days worth of treatment through a tertiary center - Repeat Hep C RNA pending Plan Consulted and discussed case with psych Ordered Lorazepam, Haldol, 1-1 sitter, elopement precautions Informed charge nurse of situation VTE Prophylaxis: Low risk ambulation CODE STATUS: Full code Admission and Anticipated Discharge Date Admission Date: August 02, 2024 Subjective Patient seen and evaluated at bedside. He reports his left foot is tender, but not painful. He denies any adverse effects from his antibiotics. He is pleasant, calm, and cooperative with myself and staff. When asked about his PO intake, he reports that "not eating or drinking will send me into enlightenment." He shared stories of his goal of fasting for 40 days. He reports he had thoughts of self harm/SI when he was a child, but has no thoughts of harming himself or others at this time. When I expressed that a hunger strike goes against not wanting to self harm, he responded "that's what they want you to think. It's all a trap." He reports that he hears voices and sees objects that are not really there at times. He denies visual or auditory hallucinations at this time; reported last time was about 2 days ago. He notes that his drug use dulls the voices. He states he went 4 months without using drugs or drinking alcohol and the voices were too loud and he saw "signs" everywhere he went. He first used marijuana in middle school, and started experimenting with other drugs in high school. He expresses flight of ideas, grandiose thinking about spirituality, paranoid thoughts regarding the government and people "out to get" him. He states that his parents have "the devil inside them." He states "this futile world tries to hold me back. I'm trying to astroproject through to the higher level." Patient was agreeable to seeing a psychiatrist while inpatient. Physical Exam Physical Exam: General: No acute distress, nondiaphoretic, well-developed, well-nourished. Cardiac: Regular rate and rhythm without murmurs gallops or rubs. Pulm: Clear to auscultation bilaterally without wheezes, rales or rhonchi. No respiratory distress. 98% on room air. Abdominal: Soft, nontender, nondistended. Bowel sounds present. Neuro: A&O x3. No focal neurological deficits. Psych: Expresses paranoid thoughts and delusional thinking. Extremities: Improving erythema and swelling of left foot and ankle. No fluid collection. Drainage site covered with band-aid. Tender to touch. Able to wiggle toes. Cap refill <3 seconds. Distal pulses present. 2 small circular scabbed areas around left foot. Results & Data Results & Data Vital Signs (Past 12 Hours) Vital Signs Temp Pulse Pulse Resp BP Pulse Ox O2 Del Method 08/03/24 08:04 97.9 F 59 L 18 106/63 100 Room Air 08/03/24 07:30 56 L 08/03/24 03:00 97.3 F L 48 L 14 105/67 99 Room Air 08/02/24 23:00 97.9 F 57 L 14 126/69 96 Room Air 08/02/24 21:44 47 L Laboratory Results Reviewed CBC Reviewed CMP Reviewed blood cultures PG Care Time/CCT Total # of Minutes Spent Total Time Spent with Patient: Total time spent is greater than 50% in coordination of care (as documented) at patient's floor/unit and/or counseling patient: Coding Level of Care Code 28340 SUB INP/OBS CARE 3/50MIN Diagnoses Cellulitis of foot L03.119 Delmi F30.9 Drug overdose T50.901A Hepatitis C infection B19.20
[2024-08-03 09:57] LABS: Hematocrit (blood only) 42.2 % (42.0-52.0); Hemoglobin 13.7 g/dl (14.0-18.0); Mean Corpuscular Hemoglobin 28.6 pg (25.0-34.0); Mean Corpuscular Hgb Conc 32.5 g/dL (32.0-36.0); Mean Corpuscular Volume 88.1 fL (80.0-100.0); Mean Platelet Volume 9.9 fL (9.4-12.4); Platelet Count 295 K/uL (130-400); RDW Coefficient of Variation 12.9 % (11.5-14.5); RDW Standard Deviation 41.9 fL (36.4-46.3); Red Blood Count 4.79 M/uL (4.70-6.10); White Blood Count 8.15 K/ul (4.8-10.8)
[2024-08-03 10:23] LABS: Albumin Globulin Ratio 1.2 (0.9-2); Albumin Level 3.7 gm/dl (3.4-5.0); BUN Creatinine Ratio 11.6 (10-20); Bilirubin,Total 0.9 mg/dl (0.2-1.0); Calcium 8.8 mg/dl (8.6-10.3); Creatinine Clr Calc Pharmacy 103.9 ml/min; Potassium 3.8 mmol/L (3.5-5.1); Total Protein 6.7 gm/dl (6.0-8.3)
--- NOTE | 2024-08-03 10:51 | Pharmacy Report ---
Pharmacy PK ABX Note - Date of Service August 03, 2024 - Assessment and Plan Assessment 08/03 * Reviewed vancomycin level, subtherapeutic level noted, will increase frequency to q8h 08/02 * 29 year old M receiving pip/tazo and vancomycin for treatment of cellulitis and ?abscess of foot. Possible prior self injection(s) into foot * PMH: current IVDA, HepC (no treatment), and hx acute renal failure * Pertinent microbiologic data includes: blood cultures x2 pending Plan Vancomycin * Maintenance dose: 1250 mg IV every 8 hours * Target AUC/TAYLA of 400-600 mg/L.hr * Trough ordered for 08/04/24 @0930 Pharmacy will continue to follow and will adjust dose/frequency as necessary. Thank you. Pharmacy has transitioned to AUC monitoring for vancomycin. AUC/TAYLA is the preferred PK/PD target and is associated with decreased risk of nephrotoxicity compared to traditional trough targets.
[2024-08-03] MEDS ORDERED: HALOPERIDOL LACTATE 5 MG/ML 1 ML VIAL IM PRN (14:09)
--- NOTE | 2024-08-03 14:29 | Psychiatric Consultation ---
Date of Consultation August 03, 2024 Impression / Recommendations Impression 29 y/o male, [facility] senior, domiciled with roommates, no known past psychiatric history presents with left foot cellulitis in the context of AMS, bizarre behaviors (found in [employer] [facility] building, reportedly removing his clothes), IVDA (Toxicology screen positive for fentanyl, amphetamine, MDMA, marijuana. Reports last IV drug use was ~4 days prior to admission). Currently being treated with IV Antibiotics due to med adherence concerns. Psychiatry consulted for evaluation and management. Patient presents in a manic and psychotic state with euphoric mood, high energy, likely decreased need for sleep, goal directed activity, disorganized speech, poor memory recollection, high pain threshold, denominational preoccupation, persecutory delusions. Higher suspicion for primary mood condition versus drug induced however unclear at this time given recent polysubstance abuse, unclear psychiatric history. Patient is a poor historian and is guarded and evasive. He presented concerning behaviors for his safety including walking barefoot, IVDA with cellulitis presentation, disrobing in public, concern for self nourishment. Patient is not safe for discharge from a psychiatric perspective at this time; please inform our service if he asks to leave. Plan to start scheduled benzodiazepine at night for sleep (discussed with patient). Patient would additionally benefit from antipsychotic medication however pt resistant at this time likely due to his active zulma and psychosis and poor insight. Psychiatry will continue to follow. Labs reviewed: initial reactive leukocytosis, ESR elevated at 49, CRP elevated at 4.13; CMP, UA, TSH unremarkable; UDS+fentanyl, amphetamines, MDMA, THC; BAL undetectable. Overall, I spent a total of 80 minutes with this case including review of chart records, nursing report, review of lab work, direct evaluation of the patient at bedside, counseling the patient, discussion of the patient with the hospitalist provider, discussion with the psychiatric liaison during clinical rounds, gathering collateral, and documentation in the electronic health record. (1) Zulma: (2) Cellulitis of foot, left: (3) Drug overdose: Plan -Start Lorazepam 2mg HS -Lorazepam 1mg PO/IM Q6hr PRN for anxiety -Haloperidol 5mg PO/IM Q6hr PRN for agitation -Elopement precautions -Bedside sitter -If patient requests to leave, please inform psychiatry. Concerns for safety if discharged in current mental state. Psych History Identifying Data 29 y/o male, [facility] senior, domiciled with roommates, no known past psychiatric history presents with left foot cellulitis in the context of AMS, bizarre behaviors (found in [employer] [facility], reportedly removing his clothes), IVDA (Toxicology screen positive for fentanyl, amphetamine, MDMA, marijuana. Reports last IV drug use was ~4 days prior to admission). Currently being treated with IV Antibiotics due to med adherence concerns. Psychiatry consulted for evaluation and management. Chief Complaint "Soul searching" History of Present Illness Patient presented 2 nights ago found in the visual arts building of [facility] and was found without shoes and undressing. He was admitted for cellulitis infection and being given IV antibiotics. Has been denominational preoccupied with plans for a 40 day hunger strike to be closer to god. Presents paranoia about government tracking him. UDS+amphetamines, fentanyl, MDMA, MJ. The patient reports looking at Art in the bathroom of the third floor with a visual art studio at [facility]. he was not wearing shoes and is unsure why. Said that he was "soul searching" throughout the interview the patient appears very happy with a large smile and is slightly restless. He reports recent IV drug abuse of narcotics but is unsure exactly what. Reports prior to being in the visual art studio he was in a dance class "I was all weird" and is unable to present a timeline of recent events. He reports that his "spirit felt like it was split". He reports recently engaging in activities such as writing music and taking things apart and putting them back together. He denies auditory visual hallucinations. He reports having commands from God but "only when I listen". And would not further elaborate. He reports past ADHD and anxiety diagnosis and has taken Xanax, Adderall, Klonopin. He denies tactile disturbances. He reports his foot infection is not painful. He reports having a mood of "nik" and has a "lot of energy". Reports IV drug abuse and 16 years of age. He reports he has been able to sleep. He denies SI and HI. He presents a plan to spend [place] with his family after discharge. Says he is studying [employer] engineering and is a senior at [employer]. he lives with 2 roommates. Does not recall their numbers for contact. Patient provided permission to contact BETI ZARAGOZA Mother [phone]: language barrier so conversation was limited Last spoken to half day ago. Unaware of past psychiatric history. Last seen early June, not there long. No known family psych history. Pt had reported ADHD, sleeping problem, high energy, "hyper". Plan to finish [employer] engineering. Allergies Allergy/AdvReac Type Severity Reaction Status Date / Time hydrocodone Allergy Intermediate rash Verified 11/17/22 13:56 acetaminophen Allergy Unknown PER Verified 11/17/22 13:56 PT--DOESN'T TAKE D/T SIDE EFFECT LIVER CAUSING ISSUE oxycodone Allergy Unknown heat Verified 11/17/22 13:56 flashes Home Medications Medication Instructions Recorded Confirmed Type Medical Marijuana 1 dose inhalation DIRECTED PRN 11/09/22 08/02/24 History NEEDED PER PT. Patient History Medical History Transaminitis Acute renal failure Surgical History Hx of wisdom tooth extraction History of left hip hemiarthroplasty Hx of left knee surgery Family History Father Dyslipidemia Denies family history of Ovarian cancer Prostate cancer Myocardial infarction Breast cancer Lung cancer Cancer Social History Smoking Status: Current every day smoker Second Hand Exposure: No; Do You Dip or Chew Tobacco: No; Hx Alcohol Use: Yes Alcohol type: beer and hard liquor Hx Substance Use: Yes Prescribed Medications: Marijuana Last Used Substance: Just Prior to Arrival Last Used Substance Other:: 11/07/22 Preferred Language: Djiboutian Communication Ability: Effective Visual Impairment: No Limitations Insulation Helper Required: No Beliefs That Will Affect Care: None Current Living Situation: Alone Feels Safe at Home: Yes Childhood Exposure to Second-Hand Smoke: No caffeine: Yes Dental Care, Regularly: No Physical Activity Frequency: Does not Exercise Seatbelt Use: always Sunscreen Use: No Assistive Devices: None Physical Exam Mental Examination: Appearance: Disheveled Eye Contact: Direct Eye Contact Motor Behavior: Restless Speech: Disorganized Mood: Euphoric Affect: Congruent and Ecstatic Thought Process: Circumstantial and Evasive Thought Content: Disoriented (persecutory and denominational delusions) and Evasive Hallucinations: Command Insight: Poor Judgement: Poor Vital Signs (Past 24 Hours): Last Vital Signs Temp 36.5 C 08/03/24 11:25 Pulse 57 L 08/03/24 11:25 Resp 18 08/03/24 11:25 BP 110/70 08/03/24 11:25 Pulse Ox 96 08/03/24 11:25 O2 Del Method Room Air 08/03/24 11:25 Results & Data (PSY) Medications Administered Piperacillin Sod/Tazobactam Sod (Zosyn) 4.5 gm in 100 mls @ 25 mls/hr IV Q8H [facility]; Protocol Stop: 08/09/24 05:59 Last Admin: 08/03/24 14:18 Dose: 25 mls/hr Documented By: [id number] Infusion: 08/03/24 10:29 Dose: Infused Documented By: [id number] Admin: 08/03/24 05:58 Dose: 25 mls/hr Documented By: Infusion: 08/03/24 02:50 Dose: Infused Documented By: certified first assistant: 08/02/24 22:43 Dose: 25 mls/hr Documented By: Infusion: 08/02/24 18:45 Dose: Infused Documented By: [id number] Admin: 08/02/24 14:07 Dose: 25 mls/hr Documented By: [email or web address] Infusion: 08/02/24 10:35 Dose: Infused Documented By: Admin: 08/02/24 06:30 Dose: 25 mls/hr Documented By: LARRY Coding Level of Care Code 32606 IN/OBS CONSULT LVL 5,80M Diagnoses Zulma F30.9 Cellulitis of foot, left L03.116 Drug overdose T50.901A
[2024-08-03] MEDS: VANCOMYCIN HCL 1,250 MG in SODIUM CHLORIDE 0.9% 250 ML IV SCH (18:42)
[2024-08-03] MEDS: LORazepam 1 MG TAB PO SCH (20:16)
[2024-08-03] MEDS: NICOTINE 21 MG/24 HR TDSY TD SCH (21:09)
[2024-08-03] MEDS: KETOROLAC TROMETHAMINE 15 MG/ML VIAL IV ONE (21:50)
[2024-08-04] MEDS: LORazepam 1 MG TAB PO PRN ×2 (01:36→12:57)
[2024-08-04] MEDS ORDERED: KETOROLAC TROMETHAMINE 15 MG/ML VIAL IV PRN (03:30)
[2024-08-04 06:59] VITALS: BP 134/89; RESP 18; TEMP 97.7; O2SAT 100
[2024-08-04 08:48] LABS: Hepatitis C Vira RNA (Log) PCR <1.18 NOT DETECTED Log IU/mL (NOT DETECTED); Hepatitis C Viral RNA by PCR <15 NOT DETECTED IU/mL (NOT DETECTED)
[2024-08-04 08:54] VITALS: PULSE 55
[2024-08-04] MEDS: VANCOMYCIN LEVEL ONE (09:14)
--- NOTE | 2024-08-04 09:18 | Orthopedic Progress Note ---
Date of Service August 04, 2024 Assessment & Plan (1) Cellulitis of foot, left: Cultures show staph aureus. Continue IV antibiotics, sensitivities pending. Pain in foot improving after aspiration and antibiotics. Will discuss with Dr. Pepito Santos . 29 year old patient with cellulitis of the left foot, 2 days s/p aspiration. Cultures show staph aureus, sensitivities pending. His pain is improving. No new complaints today. Review of Systems All systems reviewed & are unremarkable except as noted in HPI & below. Physical Exam . Had to wake patient. NAD. Left foot: erythema improving. Mild swelling medially but no significant fluid collection still. Able to move ankle/foot appropriately. NVI Results & Data Results & Data Laboratory Results . Diagnostic Findings . PG Care Time/CCT Total # of Minutes Spent Total Time Spent with Patient: Total time spent is greater than 50% in coordination of care (as documented) at patient's floor/unit and/or counseling patient: Coding Level of Care Code 76074 SUB INP/OBS CARE 2/35MIN Diagnoses Cellulitis of foot, left L03.116
[2024-08-04 10:05] LABS: Creatinine Clr Calc Pharmacy 102.8 ml/min
--- NOTE | 2024-08-04 10:53 | Pharmacy Report ---
Pharmacy PK ABX Note - Date of Service August 04, 2024 - Assessment and Plan Assessment 08/04: * Reviewed vancomycin level, predicting therapuetic AUC/TAYLA, will continue current regimen. Foot culture now growing S. Aureus (final identification and sensitivities pending), 08/03 * Reviewed vancomycin level, subtherapeutic level noted, will increase frequency to q8h 08/02 * 29 year old M receiving pip/tazo and vancomycin for treatment of cellulitis and ?abscess of foot. Possible prior self injection(s) into foot * PMH: current IVDA, HepC (no treatment), and hx acute renal failure * Pertinent microbiologic data includes: blood cultures x2 pending Plan Vancomycin * Maintenance dose: 1250 mg IV every 8 hours * Target AUC/TAYLA of 400-600 mg/L.hr * Repeat trough ordered for 08/07/24 @0930 Pharmacy will continue to follow and will adjust dose/frequency as necessary. Thank you. Pharmacy has transitioned to AUC monitoring for vancomycin. AUC/TAYLA is the preferred PK/PD target and is associated with decreased risk of nephrotoxicity compared to traditional trough targets.
--- NOTE | 2024-08-04 11:52 | Hospitalist Progress Note ---
Date of Service August 04, 2024 Assessment & Plan (1) Cellulitis of foot: Plan: Presented via EMS due to Toxic encephalopathy with AMS in the setting of suspected OD from unknown drug, and left foot pain - Leukocytosis of 16.62 on arrival, afebrile - Left foot and ankle x-rays unremarkable - Venous Doppler negative for DVT but does note fluid collection of medial left foot - Blood cultures negative x 24 hours - Ortho consulted -- Fluid collection aspirated 08/02 with fluid sent for gram stain/cultures, cell count with diff - Wound culture growing staph aureus, sensitivities pending - Continue vancomycin and Zosyn until sensitivities finalize. Then transition to oral antibiotic and discharge to inpatient psych unit (2) Delmi: Plan: Presents in manic and psychotic state, and expresses delusional thoughts, grandiose thinking about spirituality, paranoid thoughts regarding the government and people "out to get" him, high pain threshold, and disorganized speech - Patient is refusing to eat or drink due to "yarsanism reasons" and believes if he does not eat or drink he will be "released of sins." Continue to encourage PO intake - No documented psych history or evals noted in chart - Denies SI, no ideation of self harm -- however, lack of judgement / delusions at play as a hunger strike goes against not wanting to self harm - History of visual and auditory hallucinations; most recently 2 days prior to hospitalization per patient - Psychiatry consulted, patient agreeable > Patient is manic and NOT allowed to sign out AMA. Elopement precautions in place and 1-1 sitter ordered for outside of patient's room > Clonazepam 2 mg daily after dinner > Olanzapine 10 mg ODT HS > Lorazepam 2 mg Q6H PRN for anxiety > Haldol 5 mg IM PRN for agitation - 302 involuntary psychiatric hold ordered evening of 08/03. Plan for involuntary 303 via psych inpatient unit when medically stable (3) Drug overdose: Plan: Patient was found in [employer] [facility] building, reportedly removing his clothes. Presented with AMS and unable to provide clear history as to what he took - reports consuming a "gelatin" but no other specifics - EKG with NSR - UA unremarkable - Toxicology screen positive for fentanyl, amphetamine, MDMA, marijuana. Reports last IV drug use was ~4 days prior to admission - Continue telemetry monitoring (4) Hepatitis C infection: Plan: History of Hep C; no documentation of treatment received - Patient states he did complete 40 days worth of treatment through a tertiary center - Repeat Hep C RNA pending Plan Consulted and discussed case with psych Ordered Lorazepam, Haldol, 1-1 sitter, elopement precautions Informed charge nurse of situation VTE Prophylaxis: Low risk ambulation CODE STATUS: Full code Admission and Anticipated Discharge Date Admission Date: August 02, 2024 Subjective Patient seen and evaluated at bedside. He continues to be restless, very poor insight, highly delusional, and increased pain threshold. Earlier he was complaining of left foot pain, but during my evaluation he reported "my foot feels great. I can walk and jump. I'll walk home in the snow and be fine." He is becoming more restless and agitated today. He reports that "I don't want to run out of here but I'm getting to the point where I'll run past anyone who tries to stop me." Physical Exam Physical Exam: General: No acute distress, nondiaphoretic, well-developed, well-nourished. Very restless. Becoming agitated. Cardiac: Regular rate and rhythm without murmurs gallops or rubs. Pulm: Clear to auscultation bilaterally without wheezes, rales or rhonchi. No respiratory distress. 98% on room air. Abdominal: Soft, nontender, nondistended. Bowel sounds present. Neuro: A&O x3. No focal neurological deficits. Psych: Expresses paranoid thoughts, delusional thinking, poor insight. Extremities: Improving erythema and swelling of left foot and ankle. No fluid collection. Nontender to touch. Able to wiggle toes. Cap refill <3 seconds. Distal pulses present. 2 small circular scabbed areas around left foot. Results & Data Results & Data Vital Signs (Past 12 Hours) Vital Signs Temp Pulse Pulse Resp BP Pulse Ox O2 Del Method 08/04/24 08:52 55 L 08/04/24 06:58 97.7 F 47 L 18 134/89 100 Room Air 08/04/24 03:09 97.9 F 64 16 105/72 98 Room Air PG Care Time/CCT Total # of Minutes Spent Total Time Spent with Patient: Total time spent is greater than 50% in coordination of care (as documented) at patient's floor/unit and/or counseling patient: Coding Diagnoses Cellulitis of foot L03.119 Delmi F30.9 Drug overdose T50.901A Hepatitis C infection B19.20
--- NOTE | 2024-08-04 12:12 | Psychiatric Progress Note ---
Date of Service August 04, 2024 Impression / Recommendations Impression 29 y/o male, [employer] [employer] [facility] senior, domiciled with roommates, no known past psychiatric history presents with left foot cellulitis in the context of AMS, bizarre behaviors (found in [employer] [facility] [employer] [facility], reportedly removing his clothes), IVDA (Toxicology screen positive for fentanyl, amphetamine, MDMA, marijuana. Reports last IV drug use was ~4 days prior to admission). Currently being treated with IV Antibiotics due to med adherence concerns. Psychiatry consulted for evaluation and management. Currently on 302 involuntary hold. Patient presents in a manic and psychotic state with euphoric mood, high energy, likely decreased need for sleep, goal directed activity with multiple grandiose plans, disorganized thought process, poor memory recollection, high pain threshold, mu-ism preoccupation, persecutory and grandiose delusions. Higher suspicion for primary mood condition versus drug induced however unclear at this time given recent polysubstance abuse, unclear psychiatric history. Patient is a poor historian and is guarded and evasive. He presented concerning behaviors for his safety including walking barefoot, IVDA with cellulitis presentation d/t trauma while intoxicated, disrobing in public, concern for self nourishment. A: Patient continues to endorse mu-ism and grandiose delusions. Highly goal directed towards discharge despite concerns about his active infection. Presents multiple grandiose and illogical plans. Decreased need for sleep having disrupted and limited sleep despite 3mg of Lorazepam last night. Recommend to optimize sleep aid, start antipsychotic for mood stabilization. Continue plan for transfer to inpatient psychiatry once transitioned to oral antibiotics. Overall, I spent a total of 60 minutes with this case including review of chart records, nursing report, review of lab work, direct evaluation of the patient at bedside, counseling the patient, discussion of the patient with the hospitalist provider, discussion with the psychiatric liaison during clinical rounds, gathering collateral, and documentation in the electronic health record. (1) Delmi: (2) Unspecified psychosis not due to a substance or known physiological condition: (3) Methamphetamine abuse: (4) MDMA abuse: (5) IV drug abuse: (6) Cellulitis of foot, left: (7) Hepatitis C infection: (8) Impaired insight: Plan 08/04/24: -D/C Lorazepam HS -Start Clonazepam PO 2mg after dinner -Start Olanzapine ODT 10mg at bedtime -Increase Lorazepam PRN to 2mg Q6hr PRN -Continue 302 involuntary hospitalization -Bedside sitter -Transfer to psychiatry once culture results and transitioned to oral antibiotics 08/03/24 -Start Lorazepam 2mg HS -Lorazepam 1mg PO/IM Q6hr PRN for anxiety -Haloperidol 5mg PO/IM Q6hr PRN for agitation -Elopement precautions -Bedside sitter Interval History Identifying Information 29 y/o male, [facility] [employer] [facility] senior, domiciled with roommates, no known past psychiatric history presents with left foot cellulitis in the context of AMS, bizarre behaviors (found in [employer] [facility], reportedly removing his clothes), IVDA (Toxicology screen positive for fentanyl, amphetamine, MDMA, marijuana. Reports last IV drug use was ~4 days prior to admission). Currently being treated with IV Antibiotics due to med adherence concerns. Psychiatry consulted for evaluation and management. Currently on 302 involuntary hold. Chief Complaint "Need to get out of here" Subjective Subjective Patient was seen & assessed and interval progress reviewed with treatment team nursing and social work The patient reports sleep that is "on and off". Per nursing report he woke up at 3 AM and again at 9 AM. He reports that he is a "very happy go mil person". And that energy is at "medium". Says he is stressed about exams on the 16 and wants to write his professor for an extension. Rates his mood as "sad but better Sad and happy". He reports losing his belongings on the campus lawn and wants to inquire about where they are. He reports 2 days ago using IV drugs by himself and appears evasive as if trying to protect the identity of the other person he was doing drugs with. Reports stepping on something that was sharp when he was high. And then he left to go "reminisce at school". He is not sure where he got the drugs. He says he never did fentanyl and MDA despite positive UDS. He says the prior to 2 days ago his last use was a few weeks ago. Says he does IV drugs seasonally and whenever he cannot get his Adderall prescription. Needed something to help him concentrate for school. Prescribed Adderall 20 mg 3 times daily. He says that he does methamphetamine as a substitute. When I asked him about injection sites he does not know initially and then looks around his limbs and says once in his hand and once in his foot. He denies other drug use. When asking about his connection to God he reports that God told him to stop fasting, to not tell others the truth. Says these commands from God started when he was on the lawn of his school. 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 He reports in his teens he was in the psychiatric [facility]za for suicidal ideation and at that time was withdrawing from drugs. Says he does not want injections. He reports plans or projects including programming computer game, building a quadcoptor, building a notebook for keys and language. Patient is highly goal directed towards discharge despite our concerns about his health and potential for spreading infection. Physical Exam Mental Examination Appearance: Disheveled Eye Contact: Direct Eye Contact Motor Behavior: Restless Speech: Disorganized Mood: Euphoric Affect: Congruent and Ecstatic Thought Process: Circumstantial and Evasive Thought Content: Goal Oriented (multiple grandiose plans), Disoriented (persecutory and mu-ism delusions) and Evasive Hallucinations: Command Insight: Poor Judgement: Poor Vital Signs (Past 24 Hours) Last Vital Signs Temp 36.5 C 08/04/24 06:58 Pulse 55 L 08/04/24 08:52 Resp 18 08/04/24 06:58 BP 134/89 08/04/24 06:58 Pulse Ox 100 08/04/24 06:58 O2 Del Method Room Air 08/04/24 06:58 Results & Data ([facility]) Laboratory Results Laboratory Results - last 24 hr 08/02/24 08/04/24 03:37 09:31 Creatinine 0.96 Est Cr Clr Drug Dosing 102.8 eGFR 109.73 Random Vancomycin 12.0 HCV RNA (PCR) IUs/ml <15 NOT DETECTED HCV RNA PCR log IUs/ml <1.18 NOT DETECTED Current Inpatient Medications Current Inpatient Medications: Current Inpatient Medications Clonazepam (Clonazepam 1 Mg Tab) 2 mg PO DAILY@1700 ATILIO Stop: 09/03/24 16:59 Haloperidol Lactate (Haloperidol Lactate 5 Mg/Ml 1 Ml Vial) 5 mg IM Q6H PRN PRN Reason: Agitation Stop: 09/02/24 14:08 Piperacillin Sod/Tazobactam Sod (Zosyn) 4.5 gm in 100 mls @ 25 mls/hr IV Q8H [facility]; Protocol Stop: 08/09/24 05:59 Last Infusion: 08/04/24 10:21 Dose: Infused Vancomycin HCl 1,250 mg/ (Sodium Chloride) 275 mls @ 200 mls/hr IV Q8H [facility] Stop: 08/09/24 23:59 Last Infusion: 08/04/24 11:56 Dose: Infused Lorazepam (Lorazepam 1 Mg Tab) 2 mg PO Q6H PRN PRN Reason: Anxiety Stop: 09/02/24 14:08 Miscellaneous (Remove Nicoderm Patch) 1 each N/A DAILY@0859 [facility] Stop: 09/03/24 08:58 Last Admin: 08/04/24 07:49 Dose: 1 each Miscellaneous Information (Vancomycin Consult Active) 1 each N/A UD PRN PRN Reason: Consult Stop: 09/01/24 03:29 Nicotine (Nicotine 21 Mg/24 Hr Tdsy) 1 patch TD QAM [facility] Stop: 09/02/24 19:44 Last Admin: 08/04/24 07:49 Dose: 1 patch Olanzapine (Olanzapine Zydis 10 Mg Orally Dis. Tab) 10 mg PO HS [facility] Stop: 09/03/24 20:59
--- NOTE | 2024-08-04 15:11 | Discharge Summary ---
Discharge Summary Date of Service August 04, 2024 Principal Dx & Hospital Course #1 = Principal Diagnosis (1) Cellulitis of foot: Presented via EMS due to Toxic encephalopathy with AMS in the setting of suspected OD from unknown drug, and left foot pain - Leukocytosis of 16.62 on arrival, afebrile - Left foot and ankle x-rays unremarkable - Venous Doppler negative for DVT but does note fluid collection of medial left foot - Blood cultures negative x 48 hours - Ortho consulted -- Fluid collection aspirated 08/02 with fluid sent for gram stain/cultures, cell count with diff - Wound culture growing staph aureus, sensitivities pending - Treated with vancomycin and Zosyn while medically hospitalized - Discharged on Bactrim BID x 7 additional days. Will monitor culture sensitivities and adjust antibiotics if needed (2) Zulma: Presents in manic and psychotic state, and expresses delusional thoughts, grandiose thinking about spirituality, paranoid thoughts regarding the government and people "out to get" him, high pain threshold, and disorganized speech - Patient is refusing to eat or drink due to "jain reasons" and believes if he does not eat or drink he will be "released of sins." Continue to encourage PO intake - No documented psych history or evals noted in chart - Denies SI, no ideation of self harm -- however, lack of judgement / delusions at play as a hunger strike goes against not wanting to self harm - History of visual and auditory hallucinations; most recently 2 days prior to hospitalization per patient - Psychiatry consulted, patient agreeable > Patient is manic and NOT allowed to sign out AMA. Elopement precautions in place and 1-1 sitter ordered for outside of patient's room > Clonazepam 2 mg daily after dinner > Olanzapine 10 mg ODT HS > Lorazepam 2 mg Q6H PRN for anxiety > Haldol 5 mg IM PRN for agitation - 302 involuntary psychiatric hold ordered evening of 08/03 - Code alejandre called due to patient attempting to elope. Did not require IM Haldol. Escorted back to room - Discharged from medical care and transferred to inpatient psych unit 08/04 (3) Drug overdose: Patient was found in [employer] [facility] [employer] [facility], reportedly removing his clothes. Presented with AMS and unable to provide clear history as to what he took - reports consuming a "gelatin" but no other specifics - EKG with NSR - UA unremarkable - Toxicology screen positive for fentanyl, amphetamine, MDMA, marijuana. Reports last IV drug use was ~4 days prior to admission (4) Hepatitis C infection: History of Hep C; no documentation of treatment received - Patient states he did complete 40 days worth of treatment through a tertiary center - Repeat Hep C RNA pending Plan VTE Prophylaxis: Low risk ambulation CODE STATUS: Full code Admission HPI Per Admitting Provider 29 year old male with a past medical history of substance use presenting with intoxication and cellulitis. Limited history from pt due to AMS- was awake/alert and following commands but gave very limited history. Only complaint was pain in left foot. Was found in the [employer] [facility] [employer] building, reportedly removing his clothes. Found in bathroom with multiple objects he had collected. ED course significant for; CBC with leukocytosis to 16, hemodynamically stable and afebrile. EKG with NSR. XR foot/ankle without fracture. US LE with fluid collection medial foot, no DVT. Admission Exam Per Admitting Provider Constitutional: well-appearing, no acute distress HEENT: NCAT, no conjunctival injection CV: regular rhythm, no murmur appreciated, extremities well-perfused, no LE edema Resp: CTABL, no wheezes/rales/rhonchi appreciated, no increased work of breathing GI: soft, nondistended, nontender MSK: no gross deformities appreciated Skin: + erythema/swelling left foot to ankle, tender Neuro: alert, oriented, no focal neurologic deficit appreciated Discharge Exam General: No acute distress, nondiaphoretic, well-developed, well-nourished. Very restless. Becoming agitated. Cardiac: Regular rate and rhythm without murmurs gallops or rubs. Pulm: Clear to auscultation bilaterally without wheezes, rales or rhonchi. No respiratory distress. 98% on room air. Abdominal: Soft, nontender, nondistended. Bowel sounds present. Neuro: A&O x3. No focal neurological deficits. Psych: Expresses paranoid thoughts, delusional thinking, poor insight. Extremities: Improving erythema and swelling of left foot and ankle. No fluid collection. Nontender to touch. Able to wiggle toes. Cap refill <3 seconds. Distal pulses present. 2 small circular scabbed areas around left foot. Discharge Plan Discharge Items Patient Disposition: Transfer Behavioral Health Fac Reason For Visit: INTOXICATION / CELLULITIS Discharge Diagnosis: Cellulitis, zulma Activity: Per Instructions section Non-emergency contact: Primary Care Provider and Therapist Call non-emergency contact if: you have any medication questions and your symptoms worsen Follow-up/Referrals: Yefri Virk DO [Primary Care Provider] - (Follow-up in 1-2 weeks) Diet: Regular Addtl Attending Provider Instructions: FOR INPATIENT PSYCH: take Bactrim 800-160 tablet twice daily x 7 additional days. will monitor culture sensitivities 08/05 and adjust antibiotic if needed. please contact hospital medicine with any further questions or concerns. recommend PCP follow-up 1-2 weeks after discharge from inpatient psych. Pending Studies at Discharge: Yes Studies:: Culture sensitivities Stand-Alone Forms: My [facility] Medications and DC Order Prescriptions: New clonazepam 1 mg Tablet 2 mg PO DAILY@1700 Qty: 0 0RF nicotine [Nicoderm CQ] 21 mg/24 hr Patch 24 Hour 1 patch transdermal QAM Qty: 14 0RF haloperidol lactate 5 mg/mL Solution 5 mg IM Q6H PRN (Reason: agitation) Qty: 1 0RF lorazepam 1 mg Tablet 2 mg PO Q6H PRN (Reason: anxiety) Qty: 0 0RF olanzapine 10 mg Tablet,Disintegrating 10 mg PO HS Qty: 30 0RF sulfamethoxazole-trimethoprim [Bactrim DS] 800-160 mg tablet 1 tab PO BID Qty: 14 0RF Held Medical Marijuana 1 dose inhalation DIRECTED PRN (Reason: NEEDED PER PT.) Hold Instructions: Resume on 08/08/24. Hold until discharged by psych, then follow their instructions Rx Instructions: PER PT VAPS. Discharge Orders: Discharge Order (Routine); Ordered 08/04/24 Ordered By: Yara Gomez Admission Data Admit Date/Time: 08/02/24 03:07 Attending Provider: Yefri Titus Admit Provider: Barbie Cooper Primary Care Provider: Yefri Virk Other Providers: Espinoza Andres; Jerardo Chamberlain; Darren Mosley Hospital Stay Data Consultations 08/02/24 02:40 ED Decision to Admit Stat 08/02/24 03:24 Consult Orthopedic Surgery Routine 08/03/24 12:56 Consult Psychiatry Routine Diagnostic Imagining Performed 08/02/24 01:06 US venous doppler LE LT Stat Pending Results Patient Have Any Pending Studies at Discharge: Yes Discharge Instructions Given to Patient (Per Discharging Provider) FOR INPATIENT PSYCH: take Bactrim 800-160 tablet twice daily x 7 additional days. will monitor culture sensitivities 08/05 and adjust antibiotic if needed. please contact hospital medicine with any further questions or concerns. recommend PCP follow-up 1-2 weeks after discharge from inpatient psych. Total Time Total Time Spent Total Time Spent (In Minutes): Greater than 30 minutes spent completing this discharge process including direct patient care, medication reconciliation, documentation, review of labs and images, and coordination of care. Coding Level of Care Code 08769 INP/OBS DISCH >30 MIN Diagnoses Cellulitis of foot L03.119 Zulma F30.9 Drug overdose T50.901A Hepatitis C infection B19.20
[2024-08-04] MEDS ORDERED: clonazePAM 1 MG TAB PO SCH (17:00)
[2024-08-04] MEDS ORDERED: OLANZapine ZYDIS 5 MG ORALLY DIS. TAB PO SCH (21:00)
[2024-08-05 12:38] LABS: Amphetamine Urine, Confirm >15000 ng/mL (<250); Fentanyl, Urine NEGATIVE ng/mL (<0.5); MDA negative; MDEA negative; MDMA (Ecstasy) Urine, Confirm negative; Marijuana Quant, GCMS Urine 339 ng/mL (<5); Methamphetamine, Ur Confirm >15000 ng/mL (<250); Norfentanyl, Urine 3.1 ng/mL (<0.5); medMATCH Fentanyl, Urine DNR; medMATCH Norfentanyl, Urine DNR
[2024-08-07] MEDS ORDERED: VANCOMYCIN LEVEL ONE (09:00)
== END 2024-08-04 15:34 | DRG 602 ==
LOC: ED 23:16 → SUATTDRO 08-02 03:07 → EDINP 08-02 03:07 → 2W 08-02 17:22

== ENCOUNTER 2024-08-04 14:37 | Inpatient (IN) ==
[2024-08-04] MEDS ORDERED: MAGNESIUM HYDROXIDE SUSP 30 ML UDC PO PRN (15:17)
[2024-08-04] MEDS ORDERED: BISMUTH SUBSALICYLATE 262 MG CHEW PO PRN (15:17)
[2024-08-04] MEDS ORDERED: SODIUM CHLORIDE 0.65% NA SOLN 45 ML (OCEAN) PRN (15:17)
[2024-08-04] MEDS ORDERED: hydrOXYzine HCl 25 MG TAB PO PRN (15:17)
[2024-08-04] MEDS ORDERED: ALUMINUM/MAGNESIUM SUSP 30 ML UDC PO PRN (15:17)
[2024-08-04] MEDS ORDERED: ACETAMINOPHEN 325 MG TAB PO PRN (15:17)
[2024-08-04] MEDS ORDERED: LORazepam 2 MG/1 ML VIAL IM PRN (15:48)
[2024-08-04] MEDS ORDERED: LORazepam 1 MG TAB PO PRN (15:49)
[2024-08-04] MEDS ORDERED: diphenhydrAMINE 50 MG/ML VIAL IM PRN (15:49)
[2024-08-04] MEDS ORDERED: HALOPERIDOL LACTATE 5 MG/ML 1 ML VIAL IM PRN (15:59)
[2024-08-04] MEDS: clonazePAM 1 MG TAB PO SCH (22:18)
[2024-08-04] MEDS: SULFAMETHOXAZOLE/TRIMETHOPRIM DS 800/160MG TAB PO SCH (22:18)
[2024-08-04] MEDS: OLANZapine 10 MG TAB PO SCH (22:18)
[2024-08-05] MEDS: diphenhydrAMINE Capsule 25 MG CAP PO PRN
[2024-08-05] MEDS: haloperidoL 5 MG TAB PO PRN
--- NOTE | 2024-08-05 08:43 | History & Physical ---
Date of Service August 05, 2024 Impression / Recommendations Impression LEXI ZARAGOZA is a 29-year-old man and [employer] student who currently lives in an apartment off-campus with roommates, has a history of polysubstance use disorder including IVDU, and was admitted on 08/04/24 15:41 on a 302 involuntary commitment for psychosis, disorganization and concern for inability to care for his nutritional, safety, and healthcare needs in context of new cellulitis. 302 commitment expires on 08/08/2024 at 1750. Diagnostically consistent with unspecified psychosis with differential including acute zulma with psychosis 2/2 BPAD vs substance-induced or withdrawal psychosis from recent psychedelic and methamphetamine use (UDS positive for fentanyl, amphetamine/methamphetamine, MDMA, THC) vs primary psychotic disorder given prolonged hx of symptoms per his report (however reportedly also on track to graduate from [employer] program) vs schizotypal personality disorder with exacerbation in setting of recent substance use and cellulitis vs toxic encephalopathy (less likely given no evidence of fluctuating confusion). Ongoing delusions and loosening of associations but less evidence for acute grandiosity and psychomotor agitation as sleep starts to improve. Encouragingly he is currently accepting olanzapine and requested prn medication and accepted haldol last evening. Discussed medication treatment options in detail. Discussed risks, benefits and alternatives. Patient consented to continuing olanzapine for unspecified psychosis (he disagrees with the diagnosis but is willing to take olanzapine if it helps with sleep for the short-term) and clonazepam. Goal for clonazepam will be short-term use only for suspected acute zulma with goal of avoiding prolonged use given history of significant polysubstance use disorder. Reviewed side effects including but not limited to: movement (TD, NMS), cardiac (QTc prolongation), and metabolic (stroke, insulin resistance) and necessity for fasting lipid and glucose labwork and AIMS done with score of 0 with olanzapine and potential for respiratory suppression (especially with alcohol and opioids) and addiction potential. . The patient's use history and negative consequences suggests substance use disorder. Motivational interviewing was done as a brief intervention. Intervention was greater than 5 minutes in length and included assessing readiness to quit, advice on how to reduce or abstain and to set a specific goal for this hospitalization. harvest worker field crop will also assist in anticipating barriers to reducing or abstaining from substance use and in problem-solving for solutions to those problems while arranging for referral to appropriate treatment. The patient is in precontemplative stage with regards to transtheoretical model of change. Recommended decreasing consumption due to disinhibiting effects and potential for worsening psychiatric symptoms, discussed potential treatment options including MAT, IOP, residential substance use treatment, he declines all at this time but will continue to discuss as his psychiatric symptoms and hopefully his insight improves. MNPR-acute psychosis and zulma Overall I spent a total of 75 minutes for this admission including review of chart records, review of labwork, direct evaluation of the patient, counseling the patient, ordering medication, risk assessment, discussion with the psychiatric liason RN and documentation in the electronic health record. (1) Psychotic disorder: (2) Zulma: (3) Cellulitis of foot, left: (4) Polysubstance use disorder: (5) Active intravenous drug use: Plan 08/05/2024: The patient was admitted to the [facility] ([facility]) on q15 min checks (behavioral with suicide precautions) for safety. The patient will participate in group, recreational, and milieu therapies and will be offered additional individual and family sessions as clinically appropriate. -Increase olanzapine to 20mg HS po -Decrease Klonopin to 1mg HS po -Olanzapine 2.5mg ODT BID prn for psychosis/agitation -For acute behavioral event: benadryl 50mg po/IM, haldol 5mg po/IM and ativan 2mg po/IM -Continue Bactrim BID x 7 days (started on 08/04/2024) per medicine team (micor biology from 08/05/2024 shows sensitivity to Bactrim) -Elopement precautions -Labwork: * Fasting lipid panel * HbA1c * Vit D * Vit B12 Inventory Assets Strengths: supportive relationships, has continued to focus on his education despite challenges Needs: safety and stabilization, diagnostic clarification, medication adjustment, additional coping skills, increased outpatient services Suicide Risk Level Suicide Risk Level: Low (q15 min observation checks) (denies SI, current symptoms of psychosis no evidence for command AH at this time, he agrees to alert staff if he began to feel unsafe, no evidence for current food restriction ) Risk Factors Assessment Male: Yes : No Do You Have Access To A Gun?: No Health Problems: Yes Mental Health Diagnoses: Yes Substance Use Disorders: Yes Previous Attempt: No Family History of Suicide: No Previous Psychiatric Hospitalization: No Hopelessness: No Protective Factors Assessment Shinto Beliefs: Yes Supportive Family: Yes Psychiatric History Identifying Data LEXI ZARAGOZA is a 29-year-old man and [employer] student who currently lives in an apartment off-campus with roommates, has a history of polysubstance use disorder including IVDU, and was admitted on 08/04/24 15:41 on a 302 involuntary commitment for psychosis, disorganization and concern for inability to care for his nutritional, safety, and healthcare needs in context of new cellulitis. Chief Complaint "The meds are interfering with my dreams and that's how I get my visions". History of Present Illness Lexi was admitted from the medical floor on a 302 commitment for psychosis with concern for inability to meet his self-care, health, nourishment and safety needs. Further additional information per initial psychiatry consult note from Dr. Mosley on 08/03/2024: "Patient presented 2 nights ago found in the visual arts building of [facility] and was found without shoes and undressing. He was admitted for cellulitis infection and being given IV antibiotics. Has been anabaptist preoccupied with plans for a 40 day hunger strike to be closer to god. Presents paranoia about government tracking him. UDS+amphetamines, fentanyl, MDMA, MJ. The patient reports looking at Art in the bathroom of the third floor with a visual art studio at [facility]. he was not wearing shoes and is unsure why. Said that he was "soul searching" throughout the interview the patient appears very happy with a large smile and is slightly restless. He reports recent IV drug abuse of narcotics but is unsure exactly what. Reports prior to being in the visual art studio he was in a dance class "I was all weird" and is unable to present a timeline of recent events. He reports that his "spirit felt like it was split". He reports recently engaging in activities such as writing music and taking things apart and putting them back together. He denies auditory visual hallucinations. He reports having commands from God but "only when I listen". And would not further elaborate. He reports past ADHD and anxiety diagnosis and has taken Xanax, Adderall, Klonopin. He denies tactile disturbances. He reports his foot infection is not painful. He reports having a mood of "ink" and has a "lot of energy". Reports IV drug abuse and 16 years of age. He reports he has been able to sleep. He denies SI and HI. He presents a plan to spend [place] with his family after discharge. 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 he lives with 2 roommates. Does not recall their numbers for contact. Patient provided permission to contact BETI ZARAGOZA Mother [phone]: language barrier so conversation was limited Last spoken to half day ago. Unaware of past psychiatric history. Last seen early June, not there long. No known family psych history. Pt had reported ADHD, sleeping problem, high energy, "hyper". Plan to finish aerospace engineering." While on the medical service he attempted to elope resulting in a behavioral code and was started on olanzapine, Klonopin and prn Ativan and prn haldol. Last night he accepted po olanzapine and Klonopin and then also received po prn Benadryl and Haldol per his request for help with sleep. This morning he slept in but awoke to meet with me. He denies feeling like he is experiencing any type of mood episode nor psychosis. Rather describes recent use of a psychedelic described as "acid", "jelly" and "jello" a few days prior to admission. Also reports recent methamphetamine use and Adderall use about 1-2 weeks ago for studying purposes (states this was prescribed but last fill per PDMP was in February 2024). He endorses symptoms including prophetic dreams which include visions that typically come true and frequent "lucid dreaming". Gives example of: "I'll have a dream of being incarcerated somewhere and someone will say something and then a year later it will happen exactly the same way" and that "I had a dream about being here". He also describes dj vu experiences and beliefs about dying multiple times and coming back (states this has happened up to 13 times and then quotes a passage from the bible related to this being a curse "woe are those who and can't "). Denies being anabaptist but feels he is very "spirtual". Feels the event of being found on campus was related to one of his visions, denies that he was disrobing. He reports having symbolic dreams involving various creatures including "satyrs, dragons, bees, butterflies". Tells me he ended up at [facility], after growing up in [place], because "Ever since I was young someone or something was guiding me, pushing me to come here." Expands that after graduation, which he anticipates to occur this spring that he plans to move on somewhere else "this was never supposed to be the final stop" but feels he is stuck here because of cults attempting to influence him. Asked about what cults gives example of "even my birthday is a record company label name". Reports ongoing concerns that medical team "lied" to him and that he feels unsure if he'll be able to be honest but plans to try to be. He denies a previous diagnosis of bipolar disorder, zulma nor psychosis but also continues to deny these symptoms while reporting active experiences of psychosis. Past Psychiatric History Current Psychiatric Diagnosis: "stable" Outpatient Services: none Previous Psych Admissions: denies Do You Have Access To A Gun?: No History of Previous Suicide Attempt: No Past Medication Trials: Adderall, Xanax and Klonopin per PDMP review Past Head Trauma/Neuro History History of Concussion/Seizure: No Allergies Allergy/AdvReac Type Severity Reaction Status Date / Time hydrocodone Allergy Intermediate rash Verified 11/17/22 13:56 acetaminophen Allergy Unknown PER Verified 11/17/22 13:56 PT--DOESN'T TAKE D/T SIDE EFFECT LIVER CAUSING ISSUE oxycodone Allergy Unknown heat Verified 11/17/22 13:56 flashes Home Medications Medication Instructions Recorded Confirmed Type Medical Marijuana 1 dose inhalation DIRECTED PRN 11/09/22 08/02/24 History NEEDED PER PT. clonazepam 1 mg tablet 2 mg (2 x 1 mg) PO DAILY@1700 #0 08/04/24 Rx tabs haloperidol lactate 5 mg/mL 5 mg IM Q6H PRN agitation #1 mL 08/04/24 Rx injection solution lorazepam 1 mg tablet 2 mg (2 x 1 mg) PO Q6H PRN anxiety 08/04/24 Rx #0 tabs nicotine 21 mg/24 hr daily 1 patch transdermal QAM #14 ea 08/04/24 Rx transdermal patch (Nicoderm CQ) olanzapine 10 mg disintegrating 10 mg PO HS #30 tabs 08/04/24 Rx tablet sulfamethoxazole 800 1 tab PO BID #14 tabs 08/04/24 Rx mg-trimethoprim 160 mg tablet (Bactrim DS) Family History Family History of: Doesn't Know Alcohol History Hx of Alcohol Use Over the Past 12 Months: Yes AUDIT Total Score: 6 Smoking Use Have You Smoked or Used Tobacco Products in the Last 30 Days: No tobacco type: e-cigarettes Smoking Status: Current some day smoker Substance History Hx of Prescription Med Misuse Over the Past 12 Months: No Hx of Over the Counter Med Misuse Over the Past 12 Months: No Hx of Inhalent Misuse Over the Past 12 Months: No Hx of Organic Substance Use Over the Past 12 Months: Yes Hx of Illegal Substances/Street Drug Use Over Past 12 Months: Yes Problems as a Result of Past Substance Use: Life out of Control Reports substance use since age 16. Substance use history includes methamphetamine, psychedelics, Adderall, opioids including via IV use. History of past hospitalization for rhabdomyolysis 2/2 substance use and now new cellulitis from IV use. He denies recent opioid use but has a history of opioid dependency and has been on Suboxone in the past. Reports his most recent substance use was a week ago, involving "JellO" containing an unspecified psychedelic substance. Personal History Living Arrangements: Apartment Living Arrangements Comments: suite Highest Grade Completed: High School Graduate and Some College Highest Grade Completed Comment: "need 7 classes to graduate" Marital Status: Single Number Of Children: 0 Beliefs That Will Affect Care: None Current Legal Problems: No Hx Legal Problems: No Hx Traumatic Life Events: No Patient History Medical History Transaminitis Acute renal failure Surgical History Hx of wisdom tooth extraction History of left hip hemiarthroplasty Hx of left knee surgery Family History Father Dyslipidemia Denies family history of Ovarian cancer Prostate cancer Myocardial infarction Breast cancer Lung cancer Cancer Social History Smoking Status: Current some day smoker Second Hand Exposure: No; Do You Dip or Chew Tobacco: No; Hx Alcohol Use: Yes Alcohol type: beer and hard liquor Hx Substance Use: Yes Prescribed Medications: Marijuana Last Used Substance: Just Prior to Arrival Last Used Substance Other:: 11/07/22 Preferred Language: Thai Communication Ability: Effective Visual Impairment: No Limitations Fitter Welder Required: No Beliefs That Will Affect Care: None Current Living Situation: Alone Feels Safe at Home: Yes Childhood Exposure to Second-Hand Smoke: No caffeine: Yes Dental Care, Regularly: No Physical Activity Frequency: Does not Exercise Seatbelt Use: always Sunscreen Use: No Gender Identity: Male Assistive Devices: None Review of Systems Review of Systems: All systems reviewed & are unremarkable except as noted in HPI & below Physical Exam Psychiatric: Orientation: alert, oriented to person and oriented to place; + not oriented to time Apperance: appropriately dressed and + disheveled Eye Contact: + fair eye contact Motor Behavior: no abnormal motor movements Speech: normal rate/rhythm/volume of speech Affect: + labile affect Mood: + irritable mood Thought Process: + tangential thought process and + looseness of associations Thought Content: + delusions Suicidal Thoughts: denies suicidal thoughts Homicidal Thoughts: denies homicidal thoughts Hallucinations: + visual hallucinations (via dreams); no auditory hallucinations Cognition: recent memory grossly intact, remote memory grossly intact, attention grossly intact and language grossly intact Insight: + poor insight Judgment: + poor judgement Vital Signs (Past 24 Hours): Last Vital Signs Temp 36.8 C 08/04/24 15:56 Pulse 83 08/04/24 15:56 Resp 18 08/04/24 15:56 BP 136/82 08/04/24 15:56 Pulse Ox 99 08/04/24 15:56 O2 Del Method Room Air 08/04/24 15:56 Exam Statement: A physical exam was performed on the medical floor by Dr. Titus for the purposes of medical clearance. I accept that physical as correct and adequate for the purposes of the inpatient physical exam. Results & Data ([facility]) Current Inpatient Medications Current Inpatient Medications: Current Inpatient Medications Al Hydrox/Mg Hydrox/Simethicone (Aluminum/Magnesium Susp 30 Ml Udc) 30 ml PO Q4H PRN PRN Reason: GI Upset Stop: 09/03/24 15:16 Bismuth Subsalicylate (Bismuth Subsalicylate 262 Mg Chew) 2 tab PO Q30M PRN PRN Reason: Loose Stool/Diarrhea Stop: 09/03/24 15:16 Clonazepam (Clonazepam 1 Mg Tab) 2 mg PO HS ATILIO Stop: 09/03/24 21:59 Last Admin: 08/04/24 22:18 Dose: 2 mg Diphenhydramine HCl (Diphenhydramine Capsule 25 Mg Cap) 50 mg PO Q6 PRN PRN Reason: EPS/Agitation Stop: 09/03/24 15:48 Last Admin: 08/05/24 00:00 Dose: 50 mg Diphenhydramine HCl (Diphenhydramine 50 Mg/Ml Vial) 50 mg IM Q6 PRN PRN Reason: EPS/Agitation Stop: 09/03/24 15:48 Haloperidol (Haloperidol 5 Mg Tab) 5 mg PO Q6 PRN PRN Reason: Agitation Stop: 09/03/24 15:46 Last Admin: 08/05/24 00:00 Dose: 5 mg Haloperidol Lactate (Haloperidol Lactate 5 Mg/Ml 1 Ml Vial) 5 mg IM Q6 PRN PRN Reason: Agitation Stop: 09/03/24 15:58 Hydroxyzine HCl (Hydroxyzine Hcl 25 Mg Tab) 50 mg PO HSZ PRN PRN Reason: Insomnia Stop: 09/03/24 15:16 Hydroxyzine HCl (Hydroxyzine Hcl 25 Mg Tab) 25 mg PO Q4H PRN PRN Reason: Anxiety Stop: 09/03/24 15:16 Lorazepam (Lorazepam 2 Mg/1 Ml Vial) 2 mg IM Q6 PRN PRN Reason: Anxiety Stop: 09/03/24 15:47 Lorazepam (Lorazepam 1 Mg Tab) 2 mg PO Q6 PRN PRN Reason: Anxiety Stop: 09/03/24 15:48 Magnesium Hydroxide (Magnesium Hydroxide Susp 30 Ml Udc) 30 ml PO DAILY PRN PRN Reason: Constipation Stop: 09/03/24 15:16 Olanzapine (Olanzapine 10 Mg Tab) 10 mg PO HS ATILIO Stop: 09/03/24 21:59 Last Admin: 08/04/24 22:18 Dose: 10 mg Sodium Chloride (Sodium Chloride 0.65% Na Soln 45 Ml ([place])) 1 - 2 sprays NA PRN PRN PRN Reason: Nasal Dryness/Congestion Stop: 09/03/24 15:16 Trimethoprim/Sulfamethoxazole (Sulfamethoxazole/Trimethoprim Ds 800/160mg Tab) 1 tab PO BID ATILIO Stop: 08/11/24 20:59 Last Admin: 08/04/24 22:18 Dose: 1 tab
[2024-08-05] MEDS ORDERED: OLANZAPINE 2.5 MG TAB PO PRN (12:51)
[2024-08-05] MEDS ORDERED: LORazepam 1 MG TAB PO PRN (12:53)
[2024-08-05] MEDS ORDERED: LORazepam 2 MG/1 ML VIAL IM PRN (12:53)
[2024-08-05] MEDS ORDERED: NICOTINE 14 MG/24 HR PATCH TD PRN (12:54)
[2024-08-05] MEDS: NICOTINE POLACRILEX 2 MG GUM MT PRN (20:08)
[2024-08-06] MEDS: clonazePAM 1 MG TAB PO SCH (01:22)
[2024-08-06] MEDS: OLANZapine 20 MG TABLET PO SCH (01:22)
[2024-08-06 06:43] VITALS: RESP 16
--- NOTE | 2024-08-06 09:01 | Psychiatric Progress Note ---
Date of Service August 06, 2024 Impression / Recommendations Impression LEXI ZARAGOZA is a 29-year-old man and [employer] student who currently lives in an apartment off-campus with roommates, has a history of polysubstance use disorder including IVDU, and was admitted on 08/04/24 15:41 on a 302 involuntary commitment for psychosis, disorganization and concern for inability to care for his nutritional, safety, and healthcare needs in context of new cellulitis. 302 commitment expires on 08/08/2024 at 1750. Diagnostically consistent with unspecified psychosis with differential including acute zulma with psychosis 2/2 BPAD vs substance-induced or withdrawal psychosis from recent psychedelic and methamphetamine use (UDS positive for fentanyl, amphetamine/methamphetamine, MDMA, THC) vs primary psychotic disorder given prolonged hx of symptoms per his report (however reportedly also on track to graduate from [employer] program) vs schizotypal personality disorder with exacerbation in setting of recent substance use and cellulitis vs toxic encephalopathy (less likely given no evidence of fluctuating confusion). Ongoing delusions and loosening of associations but less evidence for acute grandiosity and psychomotor agitation as sleep starts to improve. A: Ongoing psychosis with hyperreligious beliefs and delusions. Refused psychiatric medication last evening. New rash observed on arms and he reports also on his genitals. Hospitalist consulted given his new antibiotic for cellulitis and IVDU. Ongoing very poor insight and judgement. He refused to sign ALE to allow me to speak with his parents. MNPR-acute psychosis and zulma Overall, I spent a total of 35 minutes on this case including meeting with the patient, reviewing the chart, nursing report, multidisciplinary team meeting, orders, and documentation. (1) Psychotic disorder: (2) Zulma: (3) Cellulitis of foot, left: (4) Polysubstance use disorder: (5) Active intravenous drug use: Plan 08/06/2024: -Repeat fasting labs tomorrow AM -Hospitalist consulted for new rash -Continue current medications and tx plan 08/05/2024: [facility]) on q15 min checks (behavioral with suicide precautions) for safety. The patient will participate in group, recreational, and milieu therapies and will be offered additional individual and family sessions as clinically appropriate. -Increase olanzapine to 20mg HS po -Decrease Klonopin to 1mg HS po -Olanzapine 2.5mg ODT BID prn for psychosis/agitation -For acute behavioral event: benadryl 50mg po/IM, haldol 5mg po/IM and ativan 2mg po/IM -Continue Bactrim BID x 7 days (started on 08/04/2024) per medicine team (micorbiology from 08/05/2024 shows sensitivity to Bactrim) -Elopement precautions -Labwork: * Fasting lipid panel * HbA1c * Vit D * Vit B12 Inventory Assets Strengths: supportive relationships, has continued to focus on his education despite challenges Needs: safety and stabilization, diagnostic clarification, medication adjustment, additional coping skills, increased outpatient services Suicide Risk Level Suicide Risk Level: Low (q15 min observation checks) (denies SI, current symptoms of psychosis no evidence for command AH at this time, he agrees to alert staff if he began to feel unsafe, no evidence for current food restriction ) Risk Factors Assessment Male: Yes : No Do You Have Access To A Gun?: No Health Problems: Yes Mental Health Diagnoses: Yes Substance Use Disorders: Yes Previous Attempt: No Family History of Suicide: No Previous Psychiatric Hospitalization: No Hopelessness: No Protective Factors Assessment Hinduism Beliefs: Yes Supportive Family: Yes Interval History Identifying Information LEXI ZARAGOZA is a 29-year-old man and [employer] student who currently lives in an apartment off-campus with roommates, has a history of polysubstance use disorder including IVDU, and was admitted on 08/04/24 15:41 on a 302 involuntary commitment for psychosis, disorganization and concern for inability to care for his nutritional, safety, and healthcare needs in context of new cellulitis. Chief Complaint "It's spiritual warfare". Review of Systems Sleep Information Total Hours of Sleep: 6.5 Sleep Comments: Repositioned self often Meal Information Percent Meal Consumed - Lunch: 100 Percent Meal Consumed - Dinner: 100 Nutrition Comment: Patient sleeping, received PRN medications at midnight. Meal was saved. Subjective Subjective Patient was seen & assessed and interval progress reviewed with treatment team nursing and social work. Reported mood last evening as "content". Declined HS medications, then woke at 1am requesting something for panic symptoms but then refused prn medications. Did then go back to sleep and slept 6.5 hours after napping much of the day yesterday as well. Ate in the middle of the night, so fasting labs to be drawn tomorrow. Today reports feeling as though he's admitted for "spiritual warfare". States he's been in communication with God through meditation, prayer, and fasting. Reports "not allowed to say" when he will be fasting again and references reli gious scripture. States that he believes he is being subjected to cruel and unusual treatment by being in the hospital. However, then starts inappropriately grinning and laughing. When I point out this discrepancy to him he continues laughing and making inappropriate and intense eye contact. He now denies a history of IV drug use, claiming he previously lied about it to receive treatment but cannot describe what he hoped to get from hospital treatment, then begins laughing inappropriately again. He reports developing two rashes on his arm and one around his genital area this morning. The rashes are described as itchy and burning. He suspects the arm rashes may be caused by the fabric of the hospital gown, feels his genital rash is improving with wearing underwear, he minimzes my discussion of involving the hospitalist provider stating "I just need my own shower and it will be fixed". Today he reports sleeping well last night and that he was tired and thus refused psychiatric medication for this reason. Reports experiencing nightmares and vivid dreams, including one about Saturn and a colosseum. He states he took his antibiotics but missed other medications due to being asleep. Physical Exam Psychiatric Orientation: alert, oriented to person, oriented to place and oriented to time Apperance: appropriately dressed and + disheveled Eye Contact: + fair eye contact (intense and inappropriate at times) Motor Behavior: no abnormal motor movements Speech: + loud speech and normal rate/rhythm/volume of speech (hyperverbal at times, observed talking to himself ) Affect: + labile affect Mood: + irritable mood Thought Process: + tangential thought process and + looseness of associations Thought Content: + delusions Suicidal Thoughts: denies suicidal thoughts Homicidal Thoughts: denies homicidal thoughts Hallucinations: + visual hallucinations (via dreams); no auditory hallucinations Cognition: recent memory grossly intact, remote memory grossly intact, attention grossly intact and language grossly intact Insight: + poor insight Judgment: + poor judgement Vital Signs (Past 24 Hours) Last Vital Signs Temp 36.9 C 08/06/24 06:39 Pulse 84 08/06/24 06:41 Resp 16 08/06/24 06:39 BP 142/82 H 08/06/24 06:41 Pulse Ox 97 08/06/24 06:39 O2 Del Method Room Air 08/06/24 06:39 Results & Data ([facility]) Current Inpatient Medications Current Inpatient Medications: Current Inpatient Medications Al Hydrox/Mg Hydrox/Simethicone (Aluminum/Magnesium Susp 30 Ml Udc) 30 ml PO Q4H PRN PRN Reason: GI Upset Stop: 09/03/24 15:16 Bismuth Subsalicylate (Bismuth Subsalicylate 262 Mg Chew) 2 tab PO Q30M PRN PRN Reason: Loose Stool/Diarrhea Stop: 09/03/24 15:16 Clonazepam (Clonazepam 1 Mg Tab) 1 mg PO HS ATILIO Stop: 09/04/24 21:59 Last Admin: 08/06/24 01:22 Dose: Not Given Diphenhydramine HCl (Diphenhydramine Capsule 25 Mg Cap) 50 mg PO Q6 PRN PRN Reason: EPS/Agitation Stop: 09/03/24 15:48 Last Admin: 08/05/24 00:00 Dose: 50 mg Diphenhydramine HCl (Diphenhydramine 50 Mg/Ml Vial) 50 mg IM Q6 PRN PRN Reason: EPS/Agitation Stop: 09/03/24 15:48 Haloperidol (Haloperidol 5 Mg Tab) 5 mg PO Q6 PRN PRN Reason: Agitation Stop: 09/03/24 15:46 Last Admin: 08/05/24 00:00 Dose: 5 mg Haloperidol Lactate (Haloperidol Lactate 5 Mg/Ml 1 Ml Vial) 5 mg IM Q6 PRN PRN Reason: Agitation Stop: 09/03/24 15:58 Hydroxyzine HCl (Hydroxyzine Hcl 25 Mg Tab) 50 mg PO HSZ PRN PRN Reason: Insomnia Stop: 09/03/24 15:16 Hydroxyzine HCl (Hydroxyzine Hcl 25 Mg Tab) 25 mg PO Q4H PRN PRN Reason: Anxiety Stop: 09/03/24 15:16 Lorazepam (Lorazepam 1 Mg Tab) 2 mg PO Q6 PRN PRN Reason: Agitation Stop: 09/03/24 15:48 Lorazepam (Lorazepam 2 Mg/1 Ml Vial) 2 mg IM Q6 PRN PRN Reason: Agitation Stop: 09/03/24 15:47 Magnesium Hydroxide (Magnesium Hydroxide Susp 30 Ml Udc) 30 ml PO DAILY PRN PRN Reason: Constipation Stop: 09/03/24 15:16 Miscellaneous (Remove Nicoderm Patch) 1 each N/A DAILY PRN PRN Reason: if patch applied Stop: 09/04/24 12:53 Nicotine (Nicotine 14 Mg/24 Hr Patch) 1 patch TD DAILY PRN PRN Reason: nicotine cravings Stop: 09/04/24 12:53 Nicotine Polacrilex (Nicotine Polacrilex 2 Mg Gum) 2 piece MT Q2H PRN PRN Reason: smoking cessation Stop: 09/04/24 19:55 Olanzapine (Olanzapine 20 Mg Tablet) 20 mg PO HS ATILIO Stop: 09/04/24 21:59 Last Admin: 08/06/24 01:22 Dose: Not Given Olanzapine (Olanzapine 2.5 Mg Tab) 2.5 mg PO BID PRN PRN Reason: Psychosis/Delusions Stop: 09/04/24 20:59 Sodium Chloride (Sodium Chloride 0.65% Na Soln 45 Ml ([place])) 1 - 2 sprays NA PRN PRN PRN Reason: Nasal Dryness/Congestion Stop: 09/03/24 15:16 Trimethoprim/Sulfamethoxazole (Sulfamethoxazole/Trimethoprim Ds 800/160mg Tab) 1 tab PO BID ATILIO Stop: 08/11/24 20:59 Last Admin: 08/05/24 19:54 Dose: 1 tab
--- NOTE | 2024-08-06 16:33 | History & Physical Report ---
Date of Service August 06, 2024 Assessment & Plan Admission and Anticipated Discharge Date Admission Date: August 04, 2024 History of Present Illness Primary Care Provider: Yefri Virk DO Jae is a 29-year-old male with past medical history of methamphetamine use, IV drug abuse, polysubstance disorder, hepatitis C infection, cellulitis of the foot treated with Bactrim who is admitted to [facility] after discharge from medical service 08/04/2024 for cellulitis with ongoing U admission for zulma/psychosis for whom we are consulted to evaluate for a rash. In the last day patient has had the development of a slightly tender sharply circumscribed rash on his right arm, with a small circular area of swelling on the tip of the penis and underlying the thigh/scrotum. He has been on Bactrim before and has not had any problems with allergies. He does not have any lip or mucosal changes. He has had no wheezing. Sudden onset this morning. He has not had fever chills or sweats. History is somewhat limited by acute psychosis, answer some questions appropriately but also with pressured speech and occasionally tangential. Reports he has had no sexual intercourse in the last year. He thinks that the rash is likely from contact/the close he was wearing which were borrowed and the initial itching and rash seems to be improving since he changed into his own underwear and pants. He denies other contact irritants including metals, detergents, soaps. Rash Low suspicion for rash related to Bactrim and no mucosal involvement to suggest SJS. Will continue to monitor. ? Contact or irritant rash. This is sharply circumscribed on the arm and with underlying edema but without a bull's-eye quality or surrounding scale to suggest fungal infection or Lyme. At time of assessment almost appears consistent with a cupping treatment. Patient will continue to wear his own close and avoid the previously provided clothing that he thought were causing him to itch. Will also start on cetirizine daily CBC/BMP ordered and trended x 1. Allergies Allergy/AdvReac Type Severity Reaction Status Date / Time hydrocodone Allergy Intermediate rash Verified 11/17/22 13:56 acetaminophen Allergy Unknown PER Verified 11/17/22 13:56 PT--DOESN'T TAKE D/T SIDE EFFECT LIVER CAUSING ISSUE oxycodone Allergy Unknown heat Verified 11/17/22 13:56 flashes Home Medications Medication Instructions Recorded Confirmed Type Medical Marijuana 1 dose inhalation DIRECTED PRN 11/09/22 08/02/24 History NEEDED PER PT. clonazepam 1 mg tablet 2 mg (2 x 1 mg) PO DAILY@1700 #0 08/04/24 Rx tabs haloperidol lactate 5 mg/mL 5 mg IM Q6H PRN agitation #1 mL 08/04/24 Rx injection solution lorazepam 1 mg tablet 2 mg (2 x 1 mg) PO Q6H PRN anxiety 08/04/24 Rx #0 tabs nicotine 21 mg/24 hr daily 1 patch transdermal QAM #14 ea 08/04/24 Rx transdermal patch (Nicoderm CQ) olanzapine 10 mg disintegrating 10 mg PO HS #30 tabs 08/04/24 Rx tablet sulfamethoxazole 800 1 tab PO BID #14 tabs 08/04/24 Rx mg-trimethoprim 160 mg tablet (Bactrim DS) Past Med/Surg History Problem List (Updated 08/05/24 @ 12:45 by Nerissa Roach MD) Active intravenous drug use Polysubstance use disorder Psychotic disorder Impaired insight IV drug abuse MDMA abuse Methamphetamine abuse Unspecified psychosis not due to a substance or known physiological condition Zulma Cellulitis of foot, left (Acute) Cellulitis of foot Drug overdose (Acute) AMS (altered mental status) (Acute) Hepatitis C infection Friction burn of skin ANNIKA (acute kidney injury) (Acute) Rhabdomyolysis (Acute) Edema of right upper extremity (Acute) Substance abuse (Acute) Medical History Transaminitis Acute renal failure Surgical History Hx of wisdom tooth extraction History of left hip hemiarthroplasty Hx of left knee surgery Family History Father Dyslipidemia Denies family history of Ovarian cancer Prostate cancer Myocardial infarction Breast cancer Lung cancer Cancer Social History Smoking Status: Current some day smoker Second Hand Exposure: No; Do You Dip or Chew Tobacco: No; Hx Alcohol Use: Yes Alcohol type: beer and hard liquor Hx Substance Use: Yes Prescribed Medications: Marijuana Last Used Substance: Just Prior to Arrival Last Used Substance Other:: 11/07/22 Preferred Language: Maltese Communication Ability: Effective Visual Impairment: No Limitations Clerical Administrative Assistant Required: No Beliefs That Will Affect Care: None Current Living Situation: Alone Feels Safe at Home: Yes Childhood Exposure to Second-Hand Smoke: No caffeine: Yes Dental Care, Regularly: No Physical Activity Frequency: Does not Exercise Seatbelt Use: always Sunscreen Use: No Gender Identity: Male Assistive Devices: None Results & Data Results & Data Vital Signs (Past 12 Hours) Vital Signs Temp Pulse Resp BP Pulse Ox O2 Del Method 08/06/24 06:41 84 142/82 H 08/06/24 06:39 36.9 C 71 16 118/79 97 Room Air PG Care Time/CCT Total # of Minutes Spent Total Time Spent with Patient: Total time spent is greater than 50% in coordination of care (as documented) at patient's floor/unit and/or counseling patient: Coding
--- NOTE | 2024-08-06 17:05 | Hospitalist Consultation ---
Date of Consultation August 06, 2024 Assessment & Plan (1) Rash: Rash. Differential includes medication induced, contact, erythema nodosum Low suspicion for rash related to Bactrim and no mucosal involvement to suggest SJS Last labs reviewed from 08/03. No leukocytosis at that time. BMP unremarkable. ? Contact or irritant rash. This is sharply circumscribed on the arm and with underlying edema but without a bull's-eye quality or surrounding scale to suggest fungal infection or Lyme. - No central palpable nodules. DDx includes erythema nodusum. ESR/CRP are elevated although this may be from his cellulitis. He has no cough, hemoptysis, or respiratory symptoms. No known history of sarcoid. Chest x-ray ordered as do not see that one was done recently No splinter hemorrhages/Janeway lesions /Mirza spots appreciated Patient will continue to wear his own clothes and avoid the previously provided clothing that he thought were causing him to itch. Will also start on cetirizine daily CBC/BMP ordered. Follow fever curve, follow white count. Lyme test is pending. CRP trended. Borders to be marked with surgical pen, follow progression History of Present Illness Attending Physician: Nerissa Roach MD History of Present Illness Jae is a 29-year-old male with past medical history of methamphetamine use, IV drug abuse, polysubstance disorder, hepatitis C infection, cellulitis of the foot treated with Bactrim who is admitted to [facility] after discharge from medical service 08/04/2024 for cellulitis with ongoing U admission for zulma/psychosis for whom we are consulted to evaluate for a rash. In the last day patient has had the development of a slightly tender sharply circumscribed rash on his right arm, with a small circular area of swelling on the tip of the penis and underlying the thigh/scrotum. He has been on Bactrim before and has not had any problems with allergies. He does not have any lip or mucosal changes. He has had no wheezing. Sudden onset this morning. He has not had fever chills or sweats. History is somewhat limited by acute psychosis, answer some questions appropriately but also with pressured speech and occasionally tangential. Reports he has had no sexual intercourse in the last year. He thinks that the rash is likely from contact/the close he was wearing which were borrowed and the initial itching and rash seems to be improving since he changed into his own underwear and pants. He denies other contact irritants including metals, detergents, soaps. No similar rash like this in the past Denies past history of contact allergies Denies itching at time of assessment No fever chills sweats today. No shortness of breath difficulty breathing. No lightheadedness or dizziness. No discharge. History of polysubstance abuse as previously noted. No drug/alcohol use since being admitted to the hospital Allergies Allergy/AdvReac Type Severity Reaction Status Date / Time hydrocodone Allergy Intermediate rash Verified 11/17/22 13:56 acetaminophen Allergy Unknown PER Verified 11/17/22 13:56 PT--DOESN'T TAKE D/T SIDE EFFECT LIVER CAUSING ISSUE oxycodone Allergy Unknown heat Verified 11/17/22 13:56 flashes Home Medications Medication Instructions Recorded Confirmed Type Medical Marijuana 1 dose inhalation DIRECTED PRN 11/09/22 08/02/24 History NEEDED PER PT. clonazepam 1 mg tablet 2 mg (2 x 1 mg) PO DAILY@1700 #0 08/04/24 Rx tabs haloperidol lactate 5 mg/mL 5 mg IM Q6H PRN agitation #1 mL 08/04/24 Rx injection solution lorazepam 1 mg tablet 2 mg (2 x 1 mg) PO Q6H PRN anxiety 08/04/24 Rx #0 tabs nicotine 21 mg/24 hr daily 1 patch transdermal QAM #14 ea 08/04/24 Rx transdermal patch (Nicoderm CQ) olanzapine 10 mg disintegrating 10 mg PO HS #30 tabs 08/04/24 Rx tablet sulfamethoxazole 800 1 tab PO BID #14 tabs 08/04/24 Rx mg-trimethoprim 160 mg tablet (Bactrim DS) Patient History Medical History Transaminitis Acute renal failure Surgical History Hx of wisdom tooth extraction History of left hip hemiarthroplasty Hx of left knee surgery Family History Father Dyslipidemia Denies family history of Ovarian cancer Prostate cancer Myocardial infarction Breast cancer Lung cancer Cancer Social History Smoking Status: Current some day smoker Second Hand Exposure: No; Do You Dip or Chew Tobacco: No; Hx Alcohol Use: Yes Alcohol type: beer and hard liquor Hx Substance Use: Yes Prescribed Medications: Marijuana Last Used Substance: Just Prior to Arrival Last Used Substance Other:: 11/07/22 Preferred Language: Albanian Communication Ability: Effective Visual Impairment: No Limitations Insurance Associate Required: No Beliefs That Will Affect Care: None Current Living Situation: Alone Feels Safe at Home: Yes Childhood Exposure to Second-Hand Smoke: No caffeine: Yes Dental Care, Regularly: No Physical Activity Frequency: Does not Exercise Seatbelt Use: always Sunscreen Use: No Gender Identity: Male Assistive Devices: None Physical Exam 2 Physical Exam: HEENT. No mucosal lesions swelling or ulceration. Pulm: No wheezing. Lungs are clear. No respiratory distress : Tip of the glans with slight hyperemia, no discharge is noted. Right thigh with small circular area of hyperemia similar to photo above. Results & Data Results & Data Vital Signs (Past 12 Hours) Vital Signs Temp Pulse Resp BP Pulse Ox O2 Del Method 08/06/24 06:41 84 142/82 H 08/06/24 06:39 36.9 C 71 16 118/79 97 Room Air PG Care Time/CCT Total # of Minutes Spent Total Time Spent with Patient: Total time spent is greater than 50% in coordination of care (as documented) at patient's floor/unit and/or counseling patient: Coding Level of Care Code 22323 IN/OBS CONSULT LVL 3,45M Diagnoses Rash R21
[2024-08-06] MEDS: CETIRIZINE HCL 10 MG TABLET PO ONE (17:31)
[2024-08-06] MEDS: diphenhydrAMINE 2%/ZINC 0.1% CREAM 28.4GM TUBE EXT PRN (18:38)
[2024-08-06] MEDS ORDERED: IBUPROFEN 200 MG TAB PO PRN (20:13)
[2024-08-06] MEDS: hydrOXYzine HCl 25 MG TAB PO PRN (22:40)
--- NOTE | 2024-08-07 00:30 | XRay Report ---
Exam(s): XR CXR 1 VIEW EXAM: XR Chest, 1 View CLINICAL HISTORY: Reason for exam: Erythema Nodousm Eval. TECHNIQUE: Frontal view of the chest. COMPARISON: No relevant prior studies available. FINDINGS: Lungs: Unremarkable. No consolidation. Pleural space: Unremarkable. No pneumothorax. Heart: Unremarkable. No cardiomegaly. Mediastinum: Unremarkable. Normal mediastinal contour. Bones/joints: Unremarkable. No acute fracture. IMPRESSION: No evidence of acute cardiopulmonary process. Electronically signed by: Brittany Dugan MD 08/07/24 00:29 AM
[2024-08-07 07:05] VITALS: O2SAT 99
[2024-08-07] MEDS: CETIRIZINE HCL 10 MG TABLET PO SCH (08:14)
[2024-08-07 08:36] LABS: Basophils # (auto) 0.06 K/uL (0.00-0.20); Basophils % (auto) 0.6 %; Eosinophils # (auto) 0.83 K/uL (0.00-0.50); Eosinophils % (auto) 7.6 %; Hematocrit (blood only) 44.7 % (42.0-52.0); Hemoglobin 14.9 g/dl (14.0-18.0); Immature Granulocytes # (auto) 0.06 K/uL (0.01-0.20); Immature Granulocytes % (auto) 0.6 %; Lymphocytes # (auto) 1.71 K/uL (1.20-3.40); Lymphocytes % (auto) 15.7 %; Mean Corpuscular Hemoglobin 28.8 pg (25.0-34.0); Mean Corpuscular Hgb Conc 33.3 g/dL (32.0-36.0); Mean Corpuscular Volume 86.5 fL (80.0-100.0); Mean Platelet Volume 9.5 fL (9.4-12.4); Monocytes # (auto) 0.71 K/uL (0.11-0.59); Monocytes % (auto) 6.5 %; Platelet Count 363 K/uL (130-400); RDW Standard Deviation 40.5 fL (36.4-46.3); Red Blood Count 5.17 M/uL (4.70-6.10); White Blood Count 10.87 K/ul (4.8-10.8)
[2024-08-07 08:48] LABS: Chol HDL Ratio 4.4 (0-5)
--- NOTE | 2024-08-07 08:48 | Psychiatric Progress Note ---
Date of Service August 07, 2024 Impression / Recommendations Impression LEXI ZARAGOZA is a 29-year-old man and [employer] student who currently lives in an apartment off-campus with roommates, has a history of polysubstance use disorder including IVDU, and was admitted on 08/04/24 15:41 on a 302 involuntary commitment for psychosis, disorganization and concern for inability to care for his nutritional, safety, and healthcare needs in context of new cellulitis. 302 commitment expires on 08/08/2024 at 1750. Diagnostically consistent with unspecified psychosis with differential including acute zulma with psychosis 2/2 BPAD vs substance-induced or withdrawal psychosis from recent psychedelic and methamphetamine use (UDS positive for fentanyl, amphetamine/methamphetamine, MDMA, THC) vs primary psychotic disorder given prolonged hx of symptoms per his report (however reportedly also on track to graduate from [employer] program) vs schizotypal personality disorder with exacerbation in setting of recent substance use and cellulitis vs toxic encephalopathy (less likely given no evidence of fluctuating confusion). Ongoing delusions and loosening of associations but less evidence for acute grandiosity and psychomotor agitation as sleep starts to improve. A: No evidence for acute psychosis nor zulma today. Remains irritable about hospitalization but engaging in groups, tolerating meeting with me and other staff, met with outpatient business case analyst to complete intake and agreeable to starting services with them to help with accessing outpatient services due to his lack of insurance. Taking his medication, sleeping well, eating his meals, attending to his hygiene needs, engages with peers and no evidence for delusions, paranoia nor hyperreligious beliefs today. Increasing suspect substance-induced presentation given improved sleep and increasing information about the degree of his substance use and past consequences from use. Appreciate hospitalist expertise regarding his new rash, infectious/inflammatory workup has been reassuring including normal chest x-ray. Labwork reviewed and notable for normal HbA1c, elevated TGs, normal cholesterol. Appropriate to continue with olanzapine at this time given improvement of psychosis/mood symptoms. Likely will not require long-term use given suspicion of substance-induced symptoms. At this time he does not meet criteria for 303 commitment so will be discharged tomorrow prior to expiration of 302. MNPR-recent psychosis with disrobing, need to ensure ongoing minimal interruptions to his sleep Overall, I spent a total of 45 minutes on this case including meeting with the patient, reviewing the chart, nursing report, multidisciplinary team meeting, orders, and documentation. 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 The patient will participate in group, recreational, and milieu therapies and will be offered additional individual and family sessions as clinically appropriate. -Increase olanzapine to 20mg HS po -Decrease Klonopin to 1mg HS po -Olanzapine 2.5mg ODT BID prn for psychosis/agitation -For acute behavioral event: benadryl 50mg po/IM, haldol 5mg po/IM and ativan 2mg po/IM -Continue Bactrim BID x 7 days (started on 08/04/2024) per medicine team (micorbiology from 08/05/2024 shows sensitivity to Bactrim) -Elopement precautions -Labwork: * Fasting lipid panel * HbA1c * Vit D * Vit B12 Inventory Assets Strengths: supportive relationships, has continued to focus on his education despite challenges Needs: safety and stabilization, diagnostic clarification, medication adjustment, additional coping skills, increased outpatient services Suicide Risk Level Suicide Risk Level: Low (q15 min observation checks) (denies SI, psychosis has resolved, he agrees to alert staff if he began to feel unsafe) Risk Factors Assessment Male: Yes : No Do You Have Access To A Gun?: No Health Problems: Yes Mental Health Diagnoses: Yes Substance Use Disorders: Yes Previous Attempt: No Family History of Suicide: No Previous Psychiatric Hospitalization: No Hopelessness: No Protective Factors Assessment Presybeterian Beliefs: Yes Supportive Family: Yes Interval History Identifying Information LEXI ZARAGOZA is a 29-year-old man and [employer] student who currently lives in an apartment off-campus with roommates, has a history of polysubstance use disorder including IVDU, and was admitted on 12/06/24 15:41 on a 302 involuntary commitment for psychosis, disorganization and concern for inability to care for his nutritional, safety, and healthcare needs in context of new cellulitis. Chief Complaint "I want to leave, I'll yunior if I have to stay here". Review of Systems Sleep Information Total Hours of Sleep: 8 Sleep Comments: PRN Vistaril Meal Information Percent Meal Consumed - Breakfast: 100 Percent Meal Consumed - Lunch: 100 Percent Meal Consumed - Dinner: 100 Nutrition Comment: Patient sleeping, received PRN medications at midnight. Meal was saved. Subjective Subjective Patient was seen & assessed and interval progress reviewed with treatment team nursing and social work. He did take his medications last evening. Slept well overnight. Engaging appropriately today. Frustrated with ongoing hospitalization, threatens to yunior. Explained process of 302, he understands this. Asked and he again declined to sign an ALE to allow me to speak with his parents. States he's been speaking with them and plans to visit them soon but doesn't want them involved in his care. Frustrated that hospitalist workup including imaging and labwork, reviewed with him concerns and why this occurred. He spoke with a peer about substance use, referenced use of stimulants he's misused in the past. Discussed past incarcerations for substance use with staff last evening. No hyperreligious statements today. Physical Exam Psychiatric Orientation: alert and oriented x 3 Apperance: appropriately dressed and appropriately groomed Eye Contact: good eye contact Motor Behavior: no abnormal motor movements Speech: normal rate/rhythm/volume of speech Affect: + irritable affect Mood: + irritable mood Thought Process: goal directed thought process Thought Content: reality based without delusions Suicidal Thoughts: denies suicidal thoughts Homicidal Thoughts: denies homicidal thoughts Hallucinations: no auditory hallucinations and no visual hallucinations Cognition: recent memory grossly intact, remote memory grossly intact, attention grossly intact and language grossly intact Insight: + limited insight Judgment: + limited judgement Vital Signs (Past 24 Hours) Last Vital Signs Temp 36.4 C L 08/07/24 07:03 Pulse 81 08/07/24 07:03 Resp 16 08/07/24 07:03 BP 130/84 08/07/24 07:03 Pulse Ox 99 08/07/24 07:03 O2 Del Method Room Air 08/07/24 07:03 Results & Data ([facility]) Laboratory Results Laboratory Results - last 24 hr 08/06/24 08/07/24 08/07/24 17:20 08:13 08:14 WBC 10.87 H RBC 5.17 Hgb 14.9 Hct 44.7 MCV 86.5 MCH 28.8 MCHC 33.3 RDW Std Deviation 40.5 RDW Coeff of Raúl 13.0 Plt Count 363 MPV 9.5 Immature Gran % (Auto) 0.6 Neut % (Auto) 69.0 Lymph % (Auto) 15.7 Sequoyah % (Auto) 6.5 Eos % (Auto) 7.6 Baso % (Auto) 0.6 Neut # (Auto) 7.50 H Lymph # (Auto) 1.71 Sequoyah # (Auto) 0.71 H Eos # (Auto) 0.83 H Baso # (Auto) 0.06 Immature Gran # (Auto) 0.06 ESR 66 H Sodium Pending Potassium Pending Chloride Pending Carbon Dioxide Pending Anion Gap Pending BUN Pending Creatinine Pending Est Cr Clr Drug Dosing Pending eGFR Pending BUN/Creatinine Ratio Pending Glucose Pending Estimat Average Glucose Pending Hemoglobin A1c Pending Calcium Pending C-Reactive Protein 1.31 H Pending Triglycerides Pending Cholesterol Pending VLDL Cholesterol, Calc Pending HDL Cholesterol Pending Cholesterol/HDL Ratio Pending Vitamin B12 Pending 25-OH Vitamin D Total Pending Lyme Disease Screen Negative Anti-Streptolysin O Ab Pending Current Inpatient Medications Current Inpatient Medications: Current Inpatient Medications Al Hydrox/Mg Hydrox/Simethicone (Aluminum/Magnesium Susp 30 Ml Udc) 30 ml PO Q4H PRN PRN Reason: GI Upset Stop: 09/03/24 15:16 Bismuth Subsalicylate (Bismuth Subsalicylate 262 Mg Chew) 2 tab PO Q30M PRN PRN Reason: Loose Stool/Diarrhea Stop: 09/03/24 15:16 Cetirizine HCl (Cetirizine Hcl 10 Mg Tablet) 10 mg PO QAM ATILIO Stop: 09/06/24 08:59 Last Admin: 08/07/24 08:14 Dose: 10 mg Clonazepam (Clonazepam 1 Mg Tab) 1 mg PO HS ATILIO Stop: 09/04/24 21:59 Last Admin: 08/06/24 20:57 Dose: 1 mg Diphenhydramine HCl (Diphenhydramine Capsule 25 Mg Cap) 50 mg PO Q6 PRN PRN Reason: EPS/Agitation Stop: 09/03/24 15:48 Last Admin: 08/05/24 00:00 Dose: 50 mg Diphenhydramine HCl (Diphenhydramine 50 Mg/Ml Vial) 50 mg IM Q6 PRN PRN Reason: EPS/Agitation Stop: 09/03/24 15:48 Haloperidol (Haloperidol 5 Mg Tab) 5 mg PO Q6 PRN PRN Reason: Agitation Stop: 09/03/24 15:46 Last Admin: 08/05/24 00:00 Dose: 5 mg Haloperidol Lactate (Haloperidol Lactate 5 Mg/Ml 1 Ml Vial) 5 mg IM Q6 PRN PRN Reason: Agitation Stop: 09/03/24 15:58 Hydroxyzine HCl (Hydroxyzine Hcl 25 Mg Tab) 50 mg PO HSZ PRN PRN Reason: Insomnia Stop: 09/03/24 15:16 Last Admin: 08/06/24 22:40 Dose: 50 mg Hydroxyzine HCl (Hydroxyzine Hcl 25 Mg Tab) 25 mg PO Q4H PRN PRN Reason: Anxiety Stop: 09/03/24 15:16 Ibuprofen (Ibuprofen 200 Mg Tab) 400 mg PO Q4H PRN PRN Reason: Pain or Fever Stop: 09/05/24 20:12 Lorazepam (Lorazepam 1 Mg Tab) 2 mg PO Q6 PRN PRN Reason: Agitation Stop: 09/03/24 15:48 Lorazepam (Lorazepam 2 Mg/1 Ml Vial) 2 mg IM Q6 PRN PRN Reason: Agitation Stop: 09/03/24 15:47 Magnesium Hydroxide (Magnesium Hydroxide Susp 30 Ml Udc) 30 ml PO DAILY PRN PRN Reason: Constipation Stop: 09/03/24 15:16 Miscellaneous (Remove Nicoderm Patch) 1 each N/A DAILY PRN PRN Reason: if patch applied Stop: 09/04/24 12:53 Nicotine (Nicotine 14 Mg/24 Hr Patch) 1 patch TD DAILY PRN PRN Reason: nicotine cravings Stop: 09/04/24 12:53 Nicotine Polacrilex (Nicotine Polacrilex 2 Mg Gum) 2 piece MT Q2H PRN PRN Reason: smoking cessation Stop: 09/04/24 19:55 Last Admin: 08/06/24 12:55 Dose: 2 piece Olanzapine (Olanzapine 20 Mg Tablet) 20 mg PO HS ATILIO Stop: 09/04/24 21:59 Last Admin: 08/06/24 20:57 Dose: 20 mg Olanzapine (Olanzapine 2.5 Mg Tab) 2.5 mg PO BID PRN PRN Reason: Psychosis/Delusions Stop: 09/04/24 20:59 Sodium Chloride (Sodium Chloride 0.65% Na Soln 45 Ml (Chisana)) 1 - 2 sprays NA PRN PRN PRN Reason: Nasal Dryness/Congestion Stop: 09/03/24 15:16 Trimethoprim/Sulfamethoxazole (Sulfamethoxazole/Trimethoprim Ds 800/160mg Tab) 1 tab PO BID ATILIO Stop: 08/11/24 20:59 Last Admin: 08/07/24 08:14 Dose: 1 tab Zinc Acetate/Diphenhydramine (Diphenhydramine 2%/Zinc 0.1% Cream 28.4gm Tube) 1 appln EXT DAILY PRN PRN Reason: Itching Stop: 09/05/24 18:08 Last Admin: 08/06/24 18:38 Dose: 1 appln
[2024-08-07 08:49] LABS: C Reactive Protein 1.06 mg/dl (0-0.5); Creatinine Clr Calc Pharmacy 150.1 ml/min; Potassium 4.1 mmol/L (3.5-5.1)
[2024-08-07 08:59] LABS: Estimated Average Glucose 111 mg/dl; Hemoglobin A1C 5.5 % (4.5-5.6)
[2024-08-07] MEDS: clonazePAM 0.5 MG TAB PO PRN (21:21)
[2024-08-08 06:33] VITALS: BP 140/95; TEMP 98.4
--- NOTE | 2024-08-08 08:44 | Discharge Summary ---
Date of Service August 08, 2024 History of Present Illness Jae was admitted from the medical floor on a 302 commitment for psychosis with concern for inability to meet his self-care, health, nourishment and safety needs. Further additional information per initial psychiatry consult note from Dr. Mosley on 08/03/2024: "Patient presented 2 nights ago found in the visual arts building of [facility] and was found without shoes and undressing. He was admitted for cellulitis infection and being given IV antibiotics. Has been caodaism preoccupied with plans for a 40 day hunger strike to be closer to god. Presents paranoia about government tracking him. UDS+amphetamines, fentanyl, MDMA, MJ. The patient reports looking at Art in the bathroom of the third floor with a visual art studio at [facility]. he was not wearing shoes and is unsure why. Said that he was "soul searching" throughout the interview the patient appears very happy with a large smile and is slightly restless. He reports recent IV drug abuse of narcotics but is unsure exactly what. Reports prior to being in the visual art studio he was in a dance class "I was all weird" and is unable to present a timeline of recent events. He reports that his "spirit felt like it was split". He reports recently engaging in activities such as writing music and taking things apart and putting them back together. He denies auditory visual hallucinations. He reports having commands from God but "only when I listen". And would not further elaborate. He reports past ADHD and anxiety diagnosis and has taken Xanax, Adderall, Klonopin. He denies tactile disturbances. He reports his foot infection is not painful. He reports having a mood of "nik" and has a "lot of energy". Reports IV drug abuse and 16 years of age. He reports he has been able to sleep. He denies SI and HI. He presents a plan to spend [place] with his family after discharge. Says he is studying [employer] engineering and is a senior at [employer]. he lives with 2 roommates. Does not recall their numbers for contact. Patient provided permission to contact BETI ZARAGOZA Mother [phone]: language barrier so conversation was limited Last spoken to half day ago. Unaware of past psychiatric history. Last seen early June, not there long. No known family psych history. Pt had reported ADHD, sleeping problem, high energy, "hyper". Plan to finish aerospace engineering." While on the medical service he attempted to elope resulting in a behavioral code and was started on olanzapine, Klonopin and prn Ativan and prn haldol. Last night he accepted po olanzapine and Klonopin and then also received po prn Benadryl and Haldol per his request for help with sleep. This morning he slept in but awoke to meet with me. He denies feeling like he is experiencing any type of mood episode nor psychosis. Rather describes recent use of a psychedelic described as "acid", "jelly" and "jello" a few days prior to admission. Also reports recent methamphetamine use and Adderall use about 1-2 weeks ago for studying purposes (states this was prescribed but last fill per PDMP was in February 2024). He endorses symptoms including prophetic dreams which include visions that typically come true and frequent "lucid dreaming". Gives example of: "I'll have a dream of being incarcerated somewhere and someone will say something and then a year later it will happen exactly the same way" and that "I had a dream about being here". He also describes dj vu experiences and beliefs about dying multiple times and coming back (states this has happened up to 13 times and then quotes a passage from the bible related to this being a curse "woe are those who and can't "). Denies being caodaism but feels he is very "spirtual". Feels the event of being found on campus was related to one of his visions, denies that he was disrobing. He reports having symbolic dreams involving various creatures including "satyrs, dragons, bees, butterflies". Tells me he ended up at [facility], after growing up in [place], because "Ever since I was young someone or something was guiding me, pushing me to come here." Expands that after graduation, which he anticipates to occur this spring that he plans to move on somewhere else "this was never supposed to be the final stop" but feels he is stuck here because of cults attempting to influence him. Asked about what cults gives example of "even my birthday is a record company label name". Reports ongoing concerns that medical team "lied" to him and that he feels unsure if he'll be able to be honest but plans to try to be. He denies a previous diagnosis of bipolar disorder, zulma nor psychosis but also continues to deny these symptoms while reporting active experiences of psychosis. Physical Exam Vital Signs (Past 24 Hours) Last Vital Signs Temp 36.9 C 08/08/24 06:32 Pulse 81 08/08/24 06:32 Resp 16 08/08/24 06:32 BP 140/95 08/08/24 06:32 Pulse Ox 99 08/07/24 07:03 O2 Del Method Room Air 08/07/24 07:03 Principal Diagnosis Unspecified Psychosis Psychiatric Data See daily stay summary. In short, patient was overall engaged with the social/therapeutic milieu of the unit, safety was maintained and intermittently cooperative with care (declined medications at times, refused bloodwork on day of discharge, only agreed to sign some of his discharge ROIs and declined to involve or sign ALE for his parents). Medication changes included initiation of olanzapine 20mg HS for psychosis and Vistaril 50mg HS prn for insomnia, Vit D supplementation and Zyrtec for new rash per hospitalist recommendations and continuation of Bactrim for cellulitis and they tolerated this well. Baseline labs of fasting glucose, fasting lipid profile, and weight were preformed (see labwork results below). Recommend repeat weight in one month. Recommend repeat fasting glucose, HbA1c and fasting lipid profile every 12 weeks and then annually. If symptoms arise recommend checking BP, EKG, prolactin level as clinically indicated or relevant. He declined a support session but did meet w [facility] outpatient case management for intake process and safety plan was completed prior to discharge. He continued to have a sense of being very connected to his dreams (i.e. belief that one day in the future his dreams will come true) and some heightening of his mood (rated it as very high and noting his focus on 'loving' others) but otherwise had thought and behavioral organization, was eating well, attending to hygiene, speaking of future-oriented plans, had tracked down his belongings to get back into his apartment and sleeping >6 hours per night even when he refused olanzapine. Encouraged and recommended that he remain in the hospital on voluntary status given his 302 was expiring but he declined. He was not felt to meet 303 commitment criteria given clinical improvement, no acute safety concerns, no evidence for acute psychosis nor zulma and able to meet his nourishment, personal care, medical care, halfway and self-protection needs. Therefore he was discharged prior to expiration of his 302 commitment this evening. Motivational interviewing was done regarding his substance use, he remains precontemplative about this. He participated in safety planning and in discussions about ways to seek support and recognizing warning signs and utilizing coping skills. Reviewed ways to have safety plan and contacts easily available should thoughts of SI ever emerge in the future. Reviewed importance of seeking emergency care should his symptoms of psychosis or elevated mood intensify, worsen or should he feel unsafe in the future which he agrees to do. On the day of discharge stated his mood was "good" and remained future-oriented including getting his belongings back from campus and [place] police and engaging in aftercare appointments for psychiatry, case management and [employer] student care and advocacy. Day of Discharge Assessment Today the patient voices readiness for discharge. They note improvement in mood. They deny thoughts of harm to self or others. Thoughts are organized and they are clinically improved from admission. There is no evidence of psychosis. They improved in the hospital with support and medication adjustments. They agree to take medications as prescribed and keep follow-up appointments. At the time of the discharge they are deemed to be stable and appropriate for outpatient level of care. They are not deemed to be at imminent risk of harm to self or others. They are aware of emergency and crisis services. Knows to call 911 or go to nearest emergency care center if in a crisis which cannot be handled as an outpatient. Suicide risk assessment: Acute risk is low given improvement in mood and denial of SI, lack of access to lethal means, improvement in sleep, hopefulness and improvement in psychosis. Chronic risk is moderate given some non-modifiable risk factors: periods of impulsivity, substance use, but also with protective factors including student, sense of responsibility to family and social supports, outpatient care in place, positive coping skills, positive problem solving. Counseled on ways to reduce acute and chronic risk including avoiding substance use, engaging with outpatient providers, using safety plan if needed, utilizing supports, taking medication, and using coping skills. Modifiable risk factors of psychosis, insomnia were addressed during hospitalization through development of new coping skills, safety planning, time away from substance use, addressing medical conditions and medication adjustments. Discharge physical exam: See admission H&P, MSE per above and day of discharge summary. Overall, I spent a total of 35 minutes on this case including meeting with the patient, reviewing the chart, nursing report, multidisciplinary team meeting, discharge orders, anticipatory planning, safety planning, risk assessment and documentation. Transition of Care Transition Of Care Record: was reviewed with the patient Advance Directives Advance Directives Information Provided: Yes Advance Directives: No Mental Health Advance Directive: No Advance Directives on File: No Living Will: No Power of Radio Frequency Technician: No Advance Directives Reason:: Declines as Mental Health Visit. Suicide Risk Level Suicide Risk Level Comments: Acute risk is low, see further assessment above Risk Factors Assessment Male: Yes : No Do You Have Access To A Gun?: No Health Problems: Yes Mental Health Diagnoses: Yes Substance Use Disorders: Yes Previous Attempt: No Family History of Suicide: No Previous Psychiatric Hospitalization: No Hopelessness: No Protective Factors Assessment Alevism Beliefs: Yes Supportive Family: Yes Tobacco Cessation at Discharge Tobacco Cessation Medication Prescribed at Discharge: Offered & Pt Refused Discharge Data Consultations 08/06/24 14:51 Consult Hospitalist Routine Lab Results 08/06/24 08/07/24 08/07/24 17:20 08:13 08:14 WBC 10.87 H RBC 5.17 Hgb 14.9 Hct 44.7 MCV 86.5 MCH 28.8 MCHC 33.3 RDW Std Deviation 40.5 RDW Coeff of Raúl 13.0 Plt Count 363 MPV 9.5 Immature Gran % (Auto) 0.6 Neut % (Auto) 69.0 Lymph % (Auto) 15.7 Dickey % (Auto) 6.5 Eos % (Auto) 7.6 Baso % (Auto) 0.6 Neut # (Auto) 7.50 H Lymph # (Auto) 1.71 Dickey # (Auto) 0.71 H Eos # (Auto) 0.83 H Baso # (Auto) 0.06 Immature Gran # (Auto) 0.06 ESR 66 H Sodium 140 Potassium 4.1 Chloride 108 H Carbon Dioxide 23 Anion Gap 9 BUN 12 Creatinine 0.75 Est Cr Clr Drug Dosing 150.1 eGFR 125.28 BUN/Creatinine Ratio 16.0 Glucose 97 Estimat Average Glucose 111 Hemoglobin A1c 5.5 Calcium 9.0 C-Reactive Protein 1.31 H 1.06 H Triglycerides 176 H Cholesterol 170 LDL Cholesterol, Calc 96 VLDL Cholesterol, Calc 35 H HDL Cholesterol 39 Cholesterol/HDL Ratio 4.4 Vitamin B12 355 25-OH Vitamin D Total 21.5 L Lyme Disease Screen Negative Hospital Course (1) Psychotic disorder: (2) Cellulitis of foot, left: (3) Polysubstance use disorder: (4) Active intravenous drug use: (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 Plan for discharge today 08/07/2024: -Discontinue Klonopin as sleep has improved and history of polysubstance use -Start Vit D supplementation 08/06/2024: -Repeat fasting labs tomorrow AM -Hospitalist consulted for new rash -Continue current medications and tx plan 08/05/2024: The patient was admitted to the [facility] ([facility] mental health unit) on q15 min checks (behavioral with suicide precautions) for safety. The patient will participate in group, recreational, and milieu therapies and will be offered additional individual and family sessions as clinically appropriate. -Increase olanzapine to 20mg HS po -Decrease Klonopin to 1mg HS po -Olanzapine 2.5mg ODT BID prn for psychosis/agitation -For acute behavioral event: benadryl 50mg po/IM, haldol 5mg po/IM and ativan 2mg po/IM -Continue Bactrim BID x 7 days (started on 08/04/2024) per medicine team (micorbiology from 08/05/2024 shows sensitivity to Bactrim) -Elopement precautions -Labwork: * Fasting lipid panel * HbA1c * Vit D * Vit B12 Mental Health & Subst Abuse Tx Psychiatrist Name of Psychiatrist: Michael Covington - [address] [place] [address] Psychiatrist's Date Of Appointment With Psychiatric Provider: 08/11/24 Time of Appointment with Psychiatrist: 10AM Psychiatric Appointment Comment: In person Automotive Upholsterer Name of Automotive Upholsterer: Base service unit - Case management Phone Number for Automotive Upholsterer: [phone] Case Management Appointment Comment: case briefer will contact you to assist with connecting to MH resources Post Discharge Appointments Smoking Cessation Counseling Tobacco Cessation Medication Prescribed at Discharge: Offered & Pt Refused Other #1: Name of Aftercare Appointment: Student care and advocacy [place] - post hospitalization meeting Phone Number of Aftercare Appointment: [phone] Date of Aftercare Appointment: 08/10/24 Time of Aftercare Appointment: 10AM Aftercare Appointment Comment: contact for support navigating extensions for school/exams missed #2: Name of Aftercare Appointment: Margarita Phone Number of Aftercare Appointment: Aftercare Appointment Comment: Medicaid application submitted on 08/07/24 Discharge Plan Discharge Items Patient Disposition: Home - Self-Care Reason For Visit: BIPOLAR 1 ZULMA Discharge Diagnosis: Unspecified Psychosis Activity: Resume your previous activity Non-emergency contact: Primary Care Provider, Psychiatrist and Professional Advisor Call non-emergency contact if: you have any medication questions and your symptoms worsen Follow-up/Referrals: Yefri Virk DO [Primary Care Provider] - Diet: Regular Addtl Attending Provider Instructions: SPECIAL CARE INSTRUCTIONS: 1. Follow through with your scheduled aftercare appointments. If unable to keep an appointment, please call to reschedule. 2. Take your medication only as prescribed. Medication should not be changed or stopped without the approval of your doctor. In the event of worsening symptoms or concerns about side effects, contact your doctor immediately. 3. Utilize new healthy coping skills, anger management skills, and stress management skills learned during your hospitalization. Journal feelings and process them with a support person. Identify stressors or situations that may result in relapse, deterioration or inappropriate behaviors and develop a plan to deal with those issues. 4. If your coping skills are ineffective and you are in crisis, contact your outpatient providers for direction. If unable to reach your providers, please call the [facility] CRISIS LINE AT , go to the [facility] walk-in center at [address] [place] [address], [address], [place], or go to the closest Emergency Room. 5. Avoid alcohol and un-prescribed drugs. 6. You have been provided with the Mental Health Advance Directives Pamphlet for your review. 7. Your condition is stable for discharge to outpatient level of care, but recovery is an ongoing process. Ifthoughts to harm yourself or others return, follow the safety plan developed during your stay. Planning for a safe return home includes securing weapons. Our treatment team recommends weaponsbe removed from the home until your outpatient provider reassesses your progress. In rare cases where the items themselvescannot be removed, guns and ammunitionshould be secured separatelyand keys stored by a reliable personoutside of the home. If you were admitted on an involuntary commitment, the police or other legal authorities may be involved in this process. AFTERCARE APPOINTMENTS: * Please call your insurance company prior to your scheduled appointment to confirm your aftercare providers are covered. Take your insurance information to your appointments. WHO TO CALL AND WHEN: Medical Emergencies: For questions or emergencies related to your hospital stay, please contact the Inpatient Behavioral Health Unit at [phone]. A recorder helper seismograph is on-call 22/03 for the Behavioral Health Unit for emergencies At any time you feel your situation is an emergency, you may also call 911 immediately. National Crisis Hotline: 496 Pending Studies at Discharge: No Stand-Alone Forms: My [facility], Smoking Cessation Medications and DC Order Prescriptions: New cetirizine 10 mg Tablet 10 mg PO QAM 30 Days Qty: 30 0RF sulfamethoxazole-trimethoprim [Bactrim DS] 800-160 mg Tablet 1 tab PO BID 3 Days Qty: 6 0RF olanzapine [Zyprexa] 20 mg Tablet 20 mg PO HS 30 Days Qty: 30 0RF cholecalciferol (vitamin D3) 125 mcg (5,000 unit) Tablet 125 mcg PO QAM 30 Days Qty: 30 0RF hydroxyzine HCl 50 mg tablet 50 mg PO HS PRN (Reason: anxiety/insomnia) 30 Days Qty: 30 0RF Discontinued Medical Marijuana 1 dose inhalation DIRECTED PRN (Reason: NEEDED PER PT.) Hold Instructions: Resume on 08/08/24. Hold until discharged by psych, then follow their instructions Rx Instructions: PER PT VAPS. clonazepam 1 mg Tablet 2 mg PO DAILY@1700 Qty: 0 0RF nicotine [Nicoderm CQ] 21 mg/24 hr Patch 24 Hour 1 patch transdermal QAM Qty: 14 0RF haloperidol lactate 5 mg/mL Solution 5 mg IM Q6H PRN (Reason: agitation) Qty: 1 0RF lorazepam 1 mg Tablet 2 mg PO Q6H PRN (Reason: anxiety) Qty: 0 0RF olanzapine 10 mg Tablet,Disintegrating 10 mg PO HS Qty: 30 0RF sulfamethoxazole-trimethoprim [Bactrim DS] 800-160 mg tablet 1 tab PO BID Qty: 14 0RF Discharge Orders: Discharge Order (Routine); Ordered 08/08/24 Ordered By: Nerissa Roach Admission Data Admit Date/Time: 08/04/24 15:41 Attending Provider: Nerissa Roach Admit Provider: Darren Mosley Primary Care Provider: Yefri Virk Other Providers: Jerardo Petersen Other Interventions: Discharge Summary Assessment (RN) Last Done: 08/08/24 10:43 PSY Interdisciplinary Discharge Planning Last Done: 08/08/24 09:28 Coding Level of Care Code 55624 D/C day mgmt > 30 min Diagnoses Psychotic disorder F29 Cellulitis of foot, left L03.116 Polysubstance use disorder F19.90 Active intravenous drug use F19.90 Psychotic disorder due to psychoactive substance F19.959
[2024-08-08] MEDS: CHOLECALCIFEROL 125 MCG (5,000 UNITS) TAB PO SCH (09:15)
[2024-08-08 10:44] VITALS: PULSE 83
== END 2024-08-08 13:10 | disposition home or self-care (01) | DRG 885 ==
LOC: 3S 15:41 → SUATTDRO 15:41